=== PATIENT | male | born 1955 | race Caucasian/White ===

== ENCOUNTER → 2017-05-01 14:31 | Outpatient (CLI) | payer OTHER, SELFPAY ==
--- NOTE | 2017-05-01 | CYSPIN_PTH ---
PATIENT: JORDI PALM LOC: [facility] U#:[id number] AGE/SX: 69/M ROOM: RE05/01/[address]: Dr. Delmer Pleitez MD : 1955 BED: DIS: SPEC #: [id number] RECD: 05/01/17 10:18 STATUS: JIMMY PAIGE #: [id number] ISABELLE: 05/01/17 00:[address]: Delmer Pleitez DEPT: CYTOLOGY RECD BY: Devang Fabian ENTERED: 05/02/17 10:18 SP TYPE: CYSPIN FL OTHR DR: Dr. Darius Dillon III, MD Tissues: Urine Procedures: Pap Stain (control) Special Stain Group II Cytospin Fluid HEADER OPERATION: Not noted PRE-OP DIAGNOSIS: Hematuria R39.1 TISSUE SUBMITTED: Urine for cytology DIAGNOSIS CYTOLOGY Urine for cytology (cytospin): Negative for malignant cells. AM:vonnie 05/03/17 CYTOLOGY STUDY Slides are reviewed. CYTOLOGY GROSS Received is 40 ml of yellow clear fluid labeled with the patient's name and and designated per the requisition as urine. Submitted for cytology preparation. 05/02/17 TC:5 CPT: 81828
[2017-05-01 14:34] LABS: Cytology, Body Fluid / CSF SEE PATHOLOGY REPORT
== END ==
PROVIDERS: Family Provider Family Medicine; PCP Family Medicine; Visit Provider Urology
DX: R31.9 Hematuria, unspecified (principal)
CPT/HCPCS: 88108; 88313

== ENCOUNTER 2017-06-18 15:12 | Inpatient (IN) | payer OTHER, SELFPAY ==
--- NOTE | 2017-06-13 15:16 | EKG12_ITS ---
Test Reason : PREOP Blood Pressure : / mmHG Vent. Rate : 062 BPM Atrial Rate : 062 BPM P-R Int : 176 ms QRS Dur : 084 ms QT Int : 370 ms P-R-T Axes : 043 -10 036 degrees QTc Int : 375 ms Normal sinus rhythm Inferior infarct (cited on or before 13-JUN-2017) Abnormal ECG When compared with ECG of 30-MAR-2017 20:37, No significant change was found Confirmed by ERASMO CASTILLO, PETE ([id number]), avid editor GWENDOLYN ADAMS ([id number]) on 06/22/2017 2:53:17 PM Referred By: Blake Dillon Confirmed By:PETE ZIMMERMAN MD
[2017-06-13 15:55] LABS: Hematocrit 44.8 % (40-54); Hemoglobin 14.8 g/dl (13.0-16.5); Mean Corpuscular Hgb 29.2 pg (27.0-32.0); Mean Corpuscular Volume 88.5 fL (80-94); Mean Platelet Vol. 10.6 fl (6.2-12.0); Platelet Count 264 K/mm3 (150-450); RBC Distribution Width CV 13.8 % (11.6-14.6); RBC Distribution Width SD 44.4 fl (35.1-43.9); Red Blood Count 5.06 M/mm3 (4.6-6.2); White Blood Count 5.7 K/mm3 (4.4-11.0)
[2017-06-13 15:56] LABS: Scan Indicated on CBC? Y/N NO
[2017-06-13 16:12] LABS: Anion Gap 8 (5-15); BUN 19 mg/dL (7-18); Calcium,Total 8.6 mg/dL (8.5-10.1); Chloride 106 mmol/L (98-107); Creatinine, Serum 1.12 mg/dL (0.70-1.30); EST Glomerular Filtration Rate 71 mL/min (>60); Est Glom Filt Rate - Afr Amer 86 mL/min (>60); Glucose 67 mg/dL (74-106); Sodium Level 142 mmol/L (136-145)
[2017-06-13 16:21] LABS: Prothrombin Time (Protime)PT. 35.3 SECONDS (11.7-14.9)
[2017-06-13 16:28] LABS: International Normalized Ratio 3.5
[2017-06-16 10:13] LABS: International Normalized Ratio 2.1; Prothrombin Time (Protime)PT. 23.6 SECONDS (11.7-14.9)
[2017-06-18] VITALS (11 sets, daily range): BP systolic 96–167; BP diastolic 72–97; PULSE 65–86; RESP 16–18; TEMP 35.8–37.3; O2SAT 92–99; BMI 28.6; BMI 28.7
--- NOTE | 2017-06-18 | GALL_PTH ---
PATIENT: JORDI PALM LOC: [facility] U#:[id number] AGE/SX: 61/M ROOM: NM316 RE06/18/[address]: Dr. Blake Dillon MD : 1955 BED: 1 DIS: 06/22/2017 SPEC #: [id number] RECD: 06/18/17 15:21 STATUS: JIMMY REHeri #: [id number] ISABELLE: 06/18/17 00:[address]: Blake Dillon DEPT: SURGICAL PATHOLOGY RECD BY: Devang Fabian ENTERED: 06/19/17 11:13 SP TYPE: MOI HENRY DR: Dr. Darius Dillon III, MD Tissues: Gallbladder, NOS Procedures: Surgery Specimen Level III HEADER OPERATION: Laparoscopic cholecystectomy with IOC PRE-OP DIAGNOSIS: Chronic cholecystitis TISSUE SUBMITTED: Gallbladder and contents MICROSCOPIC DIAGNOSIS Gallbladder, cholecystectomy: Chronic cholecystitis and cholelithiasis. AM:vonnie 06/20/17 MICROSCOPIC DESCRIPTION Slides are reviewed. GROSS DESCRIPTION Received is one container labeled with the patient's name and designated gallbladder. The specimen consists of a gallbladder measuring 10.5 x 4.2 x 4 cm. The external surface is smooth and glistening. Focally, it is granular, hemorrhagic and contains cautery artifact. The lumen of the gallbladder contains green mucoid bile and multiple black calculi ranging in size from 0.2 to 1 cm in greatest dimension. The mucosa is bile-stained and without any mass lesions. The gallbladder wall measures 0.3 cm in average thickness and is free of mass lesions. Blending Technician sections of the gallbladder and the cystic duct are submitted in one cassette. / AM:vonnie 06/19/17 TC:3 CPT: 05855
[2017-06-18 08:11] LABS: Prothrombin Time Fingerstick 13.1 SEC (11.9-14.4)
[2017-06-18] MEDS: Heparin Injection 5,000 UNITS/ML Syringe 10000 UNITS IV (08:15)
[2017-06-18] MEDS: HEPARIN/D5w 25,000 UNITS 25,000 UNITS/250 ML IV.SOLN. 9 UNITS IV (09:23)
[2017-06-18] MEDS: 0.9% Normal Saline 1,000 ML 75 ML IV ×2 (11:59→17:49)
[2017-06-18] MEDS: Bupivacaine Mpf 0.5% 30 ML VIAL (13:33)
--- NOTE | 2017-06-18 13:40 | PCM.DC.GS ---
Discharge Diet: Light diet - advance as tolerated - if you have questions about your diet instructions, please talk to you doctor. Discharge Activity: May Not Drive - for 1 week or while taking narcotic pain medicine. May shower in (days): 1 Lifting Restrictions: 10 pounds Call your doctor if your incision/area has: Continuous Slow Oozing, Sudden Increased Bleeding, Increased Pain/ Swelling, Increased Redness, Foul Smelling Discharge Call your doctor if you observe: Fever of 101 or Higher Suture Line Care: Avoid Pulling/Pushing, Avoid Pinching/Bending Additional Dressing/Incision Instructions:: Change or remove dressing in 4 days. Leave steri-strips in place for 1 week. Allergies/Adverse Reactions: Allergies No Known Allergies Allergy (Verified 06/11/17 09:21) Medications to take at Discharge Gemfibrozil 600 mg PO BID 04/21/13 enoxaparin 100 mg/mL subcutaneous syringe 50 mg SC BID #23 dose 05/25/17 Warfarin [Coumadin] 12 mg PO DAILY 06/11/17 Primary Care Physician: Darius Dillon III, MD [Primary Care Provider] - Please Follow Up With: Blake Dillon MD - [phone] When: Call to make an appointment to be seen in about 10 days.
[2017-06-18] MEDS: Cefazolin 2 GM in 0.9% Normal Saline 100 ML IV (13:57)
--- NOTE | 2017-06-18 14:15 | RAD_ITS ---
PROCEDURE: INTRAOPERATIVE CHOLANGIOGRAM. REASON FOR EXAM: Male, 89 years old. Cholelithiasis. FLUOROSCOPY TIME (if supplied): (0:13) minutes/seconds TECHNIQUE: Real-time fluoroscopy was provided during intraoperative contrast infusion via the cystic duct. COMPARISON: None. FINDINGS: Normal caliber intra-and extrahepatic bile ducts. No filling defects or strictures seen. Contrast flows to the duodenum. RAD/Cholangiogram/ O R,Initial IMPRESSION: Normal intraoperative cholangiogram. Electronically Signed: Nestor Moctezuma MD at 15:05 EDT , Service support ,
--- NOTE | 2017-06-18 15:33 | PCM.OPRPT ---
Problem List (1) Chronic cholecystitis with calculus Status: Chronic Report of Operation Date of Procedure: 06/18/17 Pre-Operative Diagnosis: Chronic cholecystitis cholelithiasis Post-Operative Diagnosis: Cholecystitis cholelithiasis. Intra-abdominal adhesions of the omentum to the anterior abdominal wall Surgery/Procedure Performed:: laparoscopic lysis of adhesion. Laparoscopic cholecystectomy with cholangiograms Description of Surgical Findings:: Timeout and informed consent was obtained. 61-year-old gentleman was taken the operating room. He was on IV heparin preoperatively to protect the cardiac valve. The heparin was stopped. He had Ancef 2 g and gentamicin 100 mg given intravenously preoperatively. The abdomen sterilely prepped draped. 0.5% Marcaine was used as local anesthetic. A total of 30 cc was used. Skin sites were pre-anesthetized a vertical infraumbilical incision was created holding sutures of 0 Vicryl placed varies inserted saline drop test on the abdomen was insufflated CO2 to a pressure of tenderness or pressure Frieda trocar inserted, lap scope inserted no evidence of any trocar injuries under conization five-minute ports were placed in the epigastric mid abdomen right upper quadrant inspection revealed that there was a broad adhesion from the omentum in the right lower quadrant to the anterior abdominal wall. It was suspected that this might of been etiologic to the patient's recent hospitalization with abdominal distention and questionable ileus versus partial small bowel obstruction. I used electrified scissors to transect this flush with the abdominal wall. Hemostasis was nicely intact. I then addressed the gallbladder it was distracted blunt dissection was instituted at the infundibulum the cystic duct identified the cystic artery identified there was both an anterior to posterior branching. A Hem-o-montana clip was placed on the cystic duct incision made in the cystic duct there was no bile spillage claims grams catheter was inserted and fluoroscopically controlled claims grams are obtained demonstrating a rather elongated cystic duct there was good flow into the small bowel there was some backflow into the pancreas no evidence of any intraluminal filling defects. The client Michael catheter was removed 2 Hem-o-montana clips were placed on the cystic duct stump prior to transecting it no spillage the cystic artery was clipped twice proximally once distally prior to transecting it this was done for both the anterior posterior branches. The gallbladder was then tediously dissected free from the liver bed absolutely complete hemostasis was intact and there was 0 spillage. The gallbladder bed was then carefully cauterized for complete hemostasis and I additionally placed FloSeal to the liver bed because my planned anticoagulation of the patient. The gallbladder was placed in retrieval bag and exited the umbilicus. The remaining trochars were removed under visualization. The abdomen was allowed to deflate of the CO2. The fascia at the umbilicus approximated with interrupted 0 Vicryl figure 8 suture. Skin edges proximate interrupted 4 Monocryl subdermal stitches. Steri-Strips Telfa and OpSite dressings applied. Sponge instrument and needle counts were reported to the surgeon be correct. Blood loss was minimal. There were no apparent complications. There is good hemostasis at the completion. Specimens include gallbladder. Drains none. Blood loss minimal. Blake Dillon M.D., F.A.C.S.
--- NOTE | 2017-06-18 15:38 | OP.PCM_ITS ---
Problem List (1) Chronic cholecystitis with calculus Status: Chronic Report of Operation Date of Procedure: 06/18/17 Pre-Operative Diagnosis: Chronic cholecystitis cholelithiasis Post-Operative Diagnosis: Cholecystitis cholelithiasis. Intra-abdominal adhesions of the omentum to the anterior abdominal wall Surgery/Procedure Performed:: laparoscopic lysis of adhesion. Laparoscopic cholecystectomy with cholangiograms Description of Surgical Findings:: Timeout and informed consent was obtained. 61-year-old gentleman was taken the operating room. He was on IV heparin preoperatively to protect the cardiac valve. The heparin was stopped. He had Ancef 2 g and gentamicin 100 mg given intravenously preoperatively. The abdomen sterilely prepped draped. 0.5% Marcaine was used as local anesthetic. A total of 30 cc was used. Skin sites were pre-anesthetized a vertical infraumbilical incision was created holding sutures of 0 Vicryl placed varies inserted saline drop test on the abdomen was insufflated CO2 to a pressure of tenderness or pressure Frieda trocar inserted, lap scope inserted no evidence of any trocar injuries under conization five- minute ports were placed in the epigastric mid abdomen right upper quadrant inspection revealed that there was a broad adhesion from the omentum in the right lower quadrant to the anterior abdominal wall. It was suspected that this might of been etiologic to the patient's recent hospitalization with abdominal distention and questionable ileus versus partial small bowel obstruction. I used electrified scissors to transect this flush with the abdominal wall. Hemostasis was nicely intact. I then addressed the gallbladder it was distracted blunt dissection was instituted at the infundibulum the cystic duct identified the cystic artery identified there was both an anterior to posterior branching. A Hem-o-montana clip was placed on the cystic duct incision made in the cystic duct there was no bile spillage claims grams catheter was inserted and fluoroscopically controlled claims grams are obtained demonstrating a rather elongated cystic duct there was good flow into the small bowel there was some backflow into the pancreas no evidence of any intraluminal filling defects. The client Michael catheter was removed 2 Hem-o- montana clips were placed on the cystic duct stump prior to transecting it no spillage the cystic artery was clipped twice proximally once distally prior to transecting it this was done for both the anterior posterior branches. The gallbladder was then tediously dissected free from the liver bed absolutely complete hemostasis was intact and there was 0 spillage. The gallbladder bed was then carefully cauterized for complete hemostasis and I additionally placed FloSeal to the liver bed because my planned anticoagulation of the patient. The gallbladder was placed in retrieval bag and exited the umbilicus. The remaining trochars were removed under visualization. The abdomen was allowed to deflate of the CO2. The fascia at the umbilicus approximated with interrupted 0 Vicryl figure 8 suture. Skin edges proximate interrupted 4 Monocryl subdermal stitches. Steri- Strips Telfa and OpSite dressings applied. Sponge instrument and needle counts were reported to the surgeon be correct. Blood loss was minimal. There were no apparent complications. There is good hemostasis at the completion. Specimens include gallbladder. Drains none. Blood loss minimal. Blake Dillon M.D., F.A.C.S.
[2017-06-18 19:52] LABS: Partial Thromboplast Time 30.1 Seconds (24.1-36.2)
[2017-06-18] MEDS: HYDROcodone Bitartrate/Apap 5/325 Tablet PO (21:26)
[2017-06-19] VITALS (10 sets, daily range): BP systolic 123–136; BP diastolic 72–85; PULSE 67–100; RESP 18; TEMP 36.7–37; O2SAT 96–98
[2017-06-19] MEDS: HYDROcodone Bitartrate/Apap 5/325 Tablet PO ×3 (03:26→21:31)
--- NOTE | 2017-06-19 05:46 | PCM.PN.SRG ---
Subjective: Doing well - Physical Exam Abdomen: Soft, Hypoactive Bowel Sounds, Distended Vital Signs Temp Pulse Resp BP Pulse Ox 98.6 F 78 18 129/76 H 97 06/19/17 03:10 06/19/17 03:10 06/19/17 03:10 06/19/17 03:10 06/19/17 03:10 Oxygen Flow Rate (L/min) 2 Oxygen Delivery Method Room Air Weight: 223 lb 12.307 oz Body Mass Index (BMI) 28.7 Intake and Output for Last 24 Hours 06/17/17 06/18/17 06/19/17 23:59 23:59 23:59 Intake Total 1400 / 1400 800 / 800 Output Total 200 / 200 625 / 625 Balance 1200 / 1200 175 / 175 Laboratory Tests Past 24 Hrs 06/18/17 06/18/17 08:05 19:28 POC PT 13.1 INR 1.10 APTT 30.1 Medical Necessity - Tobacco Use Smoking Status: Never smoker Assessment/Plan Awaiting PTT, will increase heparin; no current signs of bleeding Continue coumadin; check INR tomorrow Advance to reg diet
[2017-06-19 06:43] LABS: Hematocrit 43.7 % (40-54); Hemoglobin 14.4 g/dl (13.0-16.5); Mean Corpuscular Hgb 29.4 pg (27.0-32.0); Mean Corpuscular Volume 89.4 fL (80-94); Mean Platelet Vol. 10.4 fl (6.2-12.0); Platelet Count 192 K/mm3 (150-450); RBC Distribution Width CV 13.8 % (11.6-14.6); RBC Distribution Width SD 44.6 fl (35.1-43.9); Red Blood Count 4.89 M/mm3 (4.6-6.2); White Blood Count 8.2 K/mm3 (4.4-11.0)
[2017-06-19 06:49] LABS: Scan Indicated on CBC? Y/N NO
[2017-06-19] MEDS: Gemfibrozil 600 MG Tablet PO ×2 (06:49→16:42)
[2017-06-19 06:55] LABS: International Normalized Ratio 1.1; Prothrombin Time (Protime)PT. 14.3 SECONDS (11.7-14.9)
[2017-06-19 06:56] LABS: Partial Thromboplast Time 32.6 Seconds (24.1-36.2)
--- NOTE | 2017-06-19 09:11 | PCA ---
pt out walking in the pierre
--- NOTE | 2017-06-19 09:11 | PCA ---
pt out walking in the pierre
--- NOTE | 2017-06-19 12:15 | CASEMGMT ---
RN KRISTYN Face to Face with patient for initial transition planning/care coordination assessment. RN CM introduced self and role at [facility]. Patient sitting on edge of bed, alert and oriented, at bedside. Patient willing to participate in assessment and is able to answer all questions appropriately. Care providers, pharmacy, and demographics verified. See link attached. Patient wishes to discharge home, denies need for home health and DME at this time. Patient states he has no further needs or concerns at this time. CM to follow for discharge planning needs that may arise. Disposition Plan: Patient to discharge home with family support and follow-up plans in place.
[2017-06-19 12:40] LABS: Partial Thromboplast Time 40.8 Seconds (24.1-36.2)
[2017-06-19] MEDS: HEPARIN/D5w 25,000 UNITS 25,000 UNITS/250 ML IV.SOLN. 16 UNITS IV (15:20)
--- NOTE | 2017-06-19 15:26 | PCA ---
pt out walking in the pierre
--- NOTE | 2017-06-19 16:41 | PCA ---
pt walking in the pierre
--- NOTE | 2017-06-19 17:05 | PCA ---
pt out walking in the pierre
[2017-06-19 18:56] LABS: Partial Thromboplast Time 62.7 Seconds (24.1-36.2)
--- NOTE | 2017-06-19 19:05 | NURSING ---
DR GUNDERSON NOTIFIED OF APTT RESULT 62.7 NO NEW ORDER
[2017-06-19] MEDS: LORazepam 0.5 MG Tablet PO (21:28)
[2017-06-20] VITALS (11 sets, daily range): BP systolic 123–150; BP diastolic 76–87; PULSE 59–87; RESP 18; TEMP 36.1–37.1; O2SAT 96–99
[2017-06-20 06:02] LABS: International Normalized Ratio 1.3
[2017-06-20 06:03] LABS: Partial Thromboplast Time 73.4 Seconds (24.1-36.2)
[2017-06-20] MEDS: Gemfibrozil 600 MG Tablet PO ×2 (06:48→16:42)
--- NOTE | 2017-06-20 07:20 | PCM.PN.SRG ---
Subjective: Patient evaluated resting comfortably in bed. He denies nausea, vomiting. He notes minimal incisional discomfort. He is ambulating well. He denies nose bleeds or bleeding per rectum. - Physical Exam General: Alert, Oriented x3, Cooperative Abdomen: Bowel Sounds Present, Soft, Non Tender, - - Incisions c/d/i. Vital Signs Temp Pulse Resp BP Pulse Ox 98.0 F 59 L 18 150/82 H 98 06/20/17 04:34 06/20/17 04:34 06/20/17 04:34 06/20/17 04:34 06/20/17 04:34 Oxygen Flow Rate (L/min) 2 Oxygen Delivery Method Room Air Weight: 223 lb 12.307 oz Body Mass Index (BMI) 28.7 Intake and Output for Last 24 Hours 06/18/17 06/19/17 06/20/17 23:59 23:59 23:59 Intake Total 1400 / 1400 2775.8 / 2775.8 Output Total 200 / 200 3500 / 3500 Balance 1200 / 1200 -724.2 / -724.2 Laboratory Tests Past 24 Hrs 06/19/17 06/19/17 06/20/17 12:15 18:00 05:38 PT 16.0 H INR 1.3 APTT 40.8 H 62.7 H 73.4 H Medical Necessity - Tobacco Use Smoking Status: Never smoker Assessment/Plan I am following this patient in conjunction with Dr. Dillon S/p laparoscopic cholecystectomy Reviewed labs Discussed with Dr. Dillon Increase Coumadin to 15 mg Repeat PTT at [address] Dillon with results. Probable discharge tomorrow We will continue to monitor this patient
[2017-06-20] MEDS: HYDROcodone Bitartrate/Apap 5/325 Tablet PO ×2 (09:32→15:26)
[2017-06-20] MEDS: HEPARIN/D5w 25,000 UNITS 25,000 UNITS/250 ML IV.SOLN. 16 UNITS IV (09:44)
[2017-06-20 18:41] LABS: Partial Thromboplast Time 79.5 Seconds (24.1-36.2)
--- NOTE | 2017-06-20 19:57 | NURSING ---
Reported the Nasim TINOCO..Dr. Dillon Called-- saw the Ptt results will leave the Heparin the same.
[2017-06-20] MEDS: LORazepam 0.5 MG Tablet PO (20:54)
[2017-06-21] VITALS (10 sets, daily range): BP systolic 114–146; BP diastolic 69–74; PULSE 62–85; RESP 14–16; TEMP 36.4–36.9; O2SAT 97–98
[2017-06-21] MEDS: 0.9% NaCl Peripheral Flush Adult/Peds IV (03:37)
[2017-06-21] MEDS: HEPARIN/D5w 25,000 UNITS 25,000 UNITS/250 ML IV.SOLN. 16 UNITS IV (03:37)
--- NOTE | 2017-06-21 05:39 | PCM.PN.SRG ---
Subjective: Pt continues to do well, no complaints - Physical Exam General: Alert, Oriented x3, Cooperative, No apparent distress Lungs: Clear to auscultation Cardiovascular: Regular rate Abdomen: Soft, Non Tender Vital Signs Temp Pulse Resp BP Pulse Ox 98.5 F 64 16 146/69 H 98 06/21/17 03:32 06/21/17 03:32 06/21/17 03:32 06/21/17 03:32 06/21/17 03:32 Oxygen Flow Rate (L/min) 2 Oxygen Delivery Method Room Air Weight: 223 lb 12.307 oz Body Mass Index (BMI) 28.7 Intake and Output for Last 24 Hours 06/19/17 06/20/17 06/21/17 23:59 23:59 23:59 Intake Total 2775.8 / 2775.8 576 / 576 Output Total 3500 / 3500 600 / 600 Balance -724.2 / -724.2 -24 / -24 Laboratory Tests Past 24 Hrs 06/20/17 06/20/17 05:38 18:16 PT 16.0 H INR 1.3 APTT 73.4 H 79.5 H Medical Necessity - Tobacco Use Smoking Status: Never smoker Assessment/Plan Will check INR and PTT Hopeful discharge soon
[2017-06-21 06:11] LABS: International Normalized Ratio 1.5; Prothrombin Time (Protime)PT. 18.1 SECONDS (11.7-14.9)
[2017-06-21 06:31] LABS: Partial Thromboplast Time 91.2 Seconds (24.1-36.2)
--- NOTE | 2017-06-21 06:40 | PCM.PN.BLA ---
Progress Note Labs reviewed and discussed with Dr. Dillon. Decrease Heparin to 14 mls/hr and increase Coumadin to 17.5 mg daily. Repeat PTT at 1800 today. INR goal level is 2. 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 Pharmacy has been contacted and will make the appropriate adjustments to the Heparin and Coumadin. Probable discharge tomorrow pending lab work. Floor nurse notified of adjustments and patient aware of no discharge today.
--- NOTE | 2017-06-21 06:44 | PN_ITS ---
Progress Note Labs reviewed and discussed with Dr. Dillon. Decrease Heparin to 14 mls/hr and increase Coumadin to 17.5 mg daily. Repeat PTT at 1800 today. INR goal level is 2. 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 Pharmacy has been contacted and will make the appropriate adjustments to the Heparin and Coumadin. Probable discharge tomorrow pending lab work. Floor nurse notified of adjustments and patient aware of no discharge today.
[2017-06-21] MEDS: Gemfibrozil 600 MG Tablet PO ×2 (09:30→16:19)
[2017-06-21 18:45] LABS: Partial Thromboplast Time 60.4 Seconds (24.1-36.2)
[2017-06-21] MEDS: HEPARIN/D5w 25,000 UNITS 25,000 UNITS/250 ML IV.SOLN. 15 UNITS IV (21:32)
[2017-06-21] MEDS: LORazepam 0.5 MG Tablet PO (21:32)
[2017-06-21] MEDS: HYDROcodone Bitartrate/Apap 5/325 Tablet PO (23:14)
[2017-06-22 01:59] VITALS: PULSE 61
[2017-06-22 03:33] VITALS: BP 121/71; PULSE 64; RESP 16; TEMP 36.5; O2SAT 98
--- NOTE | 2017-06-22 05:25 | PCM.PN.SRG ---
Subjective: Pt continues to do well - Physical Exam Abdomen: Soft, - - ecchymosis at umbical site, clean Vital Signs Temp Pulse Resp BP Pulse Ox 97.7 F L 64 16 121/71 H 98 06/22/17 03:33 06/22/17 03:33 06/22/17 03:33 06/22/17 03:33 06/22/17 03:33 Oxygen Flow Rate (L/min) 2 Oxygen Delivery Method Room Air Weight: 223 lb 12.307 oz Body Mass Index (BMI) 28.7 Intake and Output for Last 24 Hours 06/20/17 06/21/17 06/22/17 23:59 23:59 23:59 Intake Total 576 / 576 1050 / 1050 510.7 / 510.7 Output Total 600 / 600 Balance -24 / -24 1050 / 1050 510.7 / 510.7 Laboratory Tests Past 24 Hrs 06/21/17 06/21/17 05:50 18:13 PT 18.1 H INR 1.5 APTT 91.2 H* 60.4 H Medical Necessity - Tobacco Use Smoking Status: Never smoker Assessment/Plan Awaiting labs and plan discharge today
[2017-06-22 06:43] LABS: International Normalized Ratio 1.8; Prothrombin Time (Protime)PT. 20.6 SECONDS (11.7-14.9)
[2017-06-22 06:52] LABS: Partial Thromboplast Time 94.4 Seconds (24.1-36.2)
--- NOTE | 2017-06-22 07:12 | NURSING ---
PT/INR ordered for Sunday, June 25, 2017, per Dr. Blake Dillon's order. Reminder sheet given to pt.
[2017-06-22] MEDS: Gemfibrozil 600 MG Tablet PO ×2 (07:16→17:07)
[2017-06-22 08:00] VITALS: PULSE 67
--- NOTE | 2017-06-22 09:00 | PCA ---
pt out walking in the pierre
[2017-06-22 10:00] VITALS: BP 119/64; PULSE 73; RESP 16; TEMP 36.8; O2SAT 97
[2017-06-22 14:15] VITALS: PULSE 65
[2017-06-22 15:09] VITALS: BP 120/78; PULSE 75; RESP 16; TEMP 36.9; O2SAT 97
--- NOTE | 2017-06-22 15:32 | PCA ---
PT OUT WALKING IN THE NAIDU
--- NOTE | 2017-06-22 15:32 | PCA ---
PT OUT WALKING IN THE NAIDU
--- NOTE | 2017-06-26 06:59 | PCM.DC.SUM ---
Discharge Date and Diagnosis Date of Admission: 06/18/17 Date of Discharge: 06/22/17 - Primary Discharge Diagnosis Chronic Cholecystitis and Cholelithiasis - Secondary Discharge Diagnosis Chronic Problems (Last Reviewed 06/11/17 @ 08:01 by Fernanda Chaudhry) Chronic cholecystitis with calculus (Chronic) Hyperlipidemia (Chronic) Partial deafness (Chronic) H/O aortic valve replacement (Chronic) StJude (metal) aortic Hospital Course and Treatment Operations: cholecystecomy Summary of Care Provided: The patient is a 61 year old M who presented for a elective cholecystectomy. Dr. Dillon performed a laparoscopic cholecystectomy with intraoperative cholangiogram on 06/18/2017. Patient tolerated the procedure well. Patient had to be bridged with IV Heparin and Coumadin to assist increasing his INR level to 3.0. Patient has an approximately 20 year old aortic valve. Upon discharge, patient's PTT increased to 94.4. Patient denies incisional pain/discomfort, nausea, vomiting. He notes ecchymosis at the umbilical site. He denies gum bleeding, rectal bleeding, or other sites of bleeding. Patient was given instructions to continue subcutaneous Lovenox injections and Coumadin as an outpatient. He was instructed to obtain a PT/INR check on Sunday. Discharge Diet: Light diet - advance as tolerated - if you have questions about your diet instructions, please talk to you doctor. Discharge Activity: May Not Drive - for 1 week or while taking narcotic pain medicine. May shower in (days): 1 Call your doctor if your incision/area has: Continuous Slow Oozing, Sudden Increased Bleeding, Increased Pain/ Swelling, Increased Redness, Foul Smelling Discharge Call your doctor if you observe: Fever of 101 or Higher Suture Line Care: Avoid Pulling/Pushing, Avoid Pinching/Bending Additional Dressing/Incision Instructions:: Change or remove dressing in 4 days. Leave steri-strips in place for 1 week. Home Medications: Medications to take at Discharge Gemfibrozil 600 mg PO BID 04/21/13 enoxaparin 100 mg/mL subcutaneous syringe 50 mg SC BID #23 dose 05/25/17 Warfarin [Coumadin] 12 mg PO DAILY 06/11/17 Primary Care Physician: Darius Dillon III, MD [Primary Care Provider] - Please Follow Up With: Blake Dillon MD - [phone] When: Call to make an appointment to be seen in about 10 days. Disposition: Home Minutes spent on discharge:: 25 Patient Condition:: Stable Medical Necessity - Tobacco Use Smoking Status: Never smoker Meaningful Use Info Meaningful Use Diagnoses (Choose all that apply): None applicable
== END 2017-06-22 17:30 | disposition home or self-care (01) | DRG 419 ==
LOC: SDC 06-19 13:22
PROVIDERS: Physician Assistant; Admitting Provider Surgery; Family Provider Family Medicine; PCP Family Medicine; Visit Provider Surgery
PROC: 0FT44ZZ Resection of Gallbladder, Percutaneous Endoscopic Approach (ICD-10-PCS; CPT 47610; principal; 2017-06-18 13:45)
DX: K80.10 Calculus of gallbladder with chronic cholecystitis without obstruction (principal); E78.5 Hyperlipidemia, unspecified; K66.0 Peritoneal adhesions (postprocedural) (postinfection); H91.90 Unspecified hearing loss, unspecified ear; Z95.2 Presence of prosthetic heart valve; Z79.01 Long term (current) use of anticoagulants
CPT/HCPCS: 36415; 36416; 74300; 76000; 80048; 85027; 85610; 85730; 88304; 93005; J7030; J7120; A4216; J2405; J3490

== ENCOUNTER → 2017-06-25 07:56 | Outpatient (CLI) | payer OTHER, SELFPAY ==
[2017-06-25 08:23] LABS: Prothrombin Time (Protime)PT. 31.7 SECONDS (11.7-14.9)
== END ==
PROVIDERS: Family Provider Family Medicine; PCP Family Medicine; Visit Provider Surgery
DX: R79.1 Abnormal coagulation profile (principal)
CPT/HCPCS: 36415; 85610

== ENCOUNTER → 2017-07-03 13:50 | Outpatient (CLI) | payer OTHER, SELFPAY ==
[2017-07-03 16:05] LABS: International Normalized Ratio 3.1
== END ==
PROVIDERS: Family Provider Family Medicine; PCP Family Medicine; Visit Provider Surgery
DX: R79.1 Abnormal coagulation profile (principal)
CPT/HCPCS: 36415; 85610

== ENCOUNTER 2017-07-15 15:29 | Emergency (ER) | payer OTHER, SELFPAY ==
[2017-07-15 15:30] VITALS: BP 143/87; PULSE 85; RESP 16; TEMP 36.7; O2SAT 97; BMI 28.8
[2017-07-15 16:14] VITALS: RESP 16
[2017-07-15 16:37] LABS: International Normalized Ratio 1.4
--- NOTE | 2017-07-15 17:00 | ED.VISSUMM ---
- ER Visit Summary Date of Service: 07/15/17 Chief Complaint: Wound check History of Present Illness: The patient is a 61 M who had a laparoscopic cholecystectomy on June [address] Dillon. He states that about 1 week ago he began to have some bleeding from the wound. He is noticed a small amount of bleeding at his umbilicus. He is otherwise asymptomatic. He denies pain nausea vomiting fevers. He states he did have a follow-up appointment about a week ago shortly before the bleeding began. Physical Examination: Afebrile vitals are stable Heart regular rate and rhythm Lungs are clear The abdomen is soft there is a surgical wound inferior umbilicus with a very small open area a couple of millimeters there is dried blood but no active drainage he does have a firm area beneath this measuring 3 x 4 cm which is not tender fluctuant erythematous or hot to the touch Test Results: INR 1.4 Emergency Department Course and Treatment: Patient states that he is noticed the mass or area of induration near this wound since surgery. At this time he does not have evidence to suggest abscess. It is not fluctuant erythematous warm to touch and there is no purulent drainage. There is some dried blood. He is on warfarin. I suspect that this was a small hematoma but is now beginning to drain. I did speak to Dr. Valverde who was on-call for the patient's surgeon to notify them of his visit here. We will have him call the office for outpatient follow-up. He understands to return for new or worsening symptoms and was discharged home. Treatment Plan: [] Disposition: Discharge Impression: Postoperative wound check Hematoma This note was generated with [employer] dictation software. It may contain incorrect words, spelling, and punctuation that were not noted in review of the chart prior to signing ED Disposition - Plan for ED Patient: Chief Complaint: Wound Check Referrals: Darius Dillon III, MD [Primary Care Provider] -
--- NOTE | 2017-07-15 17:03 | ED.DCSUM_ITS ---
- ER Visit Summary Date of Service: 07/15/17 Chief Complaint: Wound check History of Present Illness: The patient is a 61 M who had a laparoscopic cholecystectomy on June [address] Dillon. He states that about 1 week ago he began to have some bleeding from the wound. He is noticed a small amount of bleeding at his umbilicus. He is otherwise asymptomatic. He denies pain nausea vomiting fevers. He states he did have a follow-up appointment about a week ago shortly before the bleeding began. Physical Examination: Afebrile vitals are stable Heart regular rate and rhythm Lungs are clear The abdomen is soft there is a surgical wound inferior umbilicus with a very small open area a couple of millimeters there is dried blood but no active drainage he does have a firm area beneath this measuring 3 x 4 cm which is not tender fluctuant erythematous or hot to the touch Test Results: INR 1.4 Emergency Department Course and Treatment: Patient states that he is noticed the mass or area of induration near this wound since surgery. At this time he does not have evidence to suggest abscess. It is not fluctuant erythematous warm to touch and there is no purulent drainage. There is some dried blood. He is on warfarin. I suspect that this was a small hematoma but is now beginning to drain. I did speak to Dr. Valverde who was on-call for the patient 's surgeon to notify them of his visit here. We will have him call the office for outpatient follow-up. He understands to return for new or worsening symptoms and was discharged home. Treatment Plan: [] Disposition: Discharge Impression: Postoperative wound check Hematoma This note was generated with [employer] dictation software. It may contain incorrect words, spelling, and punctuation that were not noted in review of the chart prior to signing ED Disposition - Plan for ED Patient: Chief Complaint: Wound Check Referrals: Darius Dillon III, MD [Primary Care Provider] -
--- NOTE | 2017-07-15 17:03 | ED.DEP ---
ED Disposition - Plan for ED Patient: Chief Complaint: Wound Check Instructions: ED Wound Check Post Op Bleeding Referrals: Darius Dillon III, MD [Primary Care Provider] - Blake Dillon MD [STAFF PHYSICIAN] -
[2017-07-15 17:12] VITALS: RESP 16
--- NOTE | 2017-07-15 17:12 | ED.RN ---
REVIEWED D/C INSTRUCTIONS, FOLLOW UP CARE, AND S/S THAT WOULD WARRANT A RETURN TO THE ED WITH PT. PT VERBALIZED AN UNDERSTANDING AND DENIES FURTHER QUESTIONS FOR THIS RN. PT SKIN P/W/D, RESP EVEN AND UNLABORED, PT A&O X 3, NO DISTRESS NOTED. PT AMBULATED OUT OF ED, GAIT STEADY.
== END 2017-07-15 17:21 | disposition home or self-care (01) ==
PROVIDERS: Emergency Provider Emergency Medicine; Family Provider Family Medicine; PCP Family Medicine
DX: L76.32 Postprocedural hematoma of skin and subcutaneous tissue following other procedure (principal); Z79.01 Long term (current) use of anticoagulants; Z90.49 Acquired absence of other specified parts of digestive tract
CPT/HCPCS: 85610; 99282

== ENCOUNTER 2018-01-05 01:14 | Emergency (ER) | payer OTHER, SELFPAY ==
[2018-01-05 01:17] VITALS: BP 139/90; PULSE 92; RESP 18; TEMP 36.9; O2SAT 99; BMI 28.0
--- NOTE | 2018-01-05 01:44 | CT_ITS ---
STUDY: CT ABDOMEN AND PELVIS WITHOUT CONTRAST REASON FOR EXAM: Male, 62 years old. Left lower quadrant pain RADIATION DOSAGE (If Supplied By Facility): CTDIvol = ( 10.64 ) mGy, DLP = ( 646.16 ) mGycm TECHNIQUE: Transaxial images were obtained from the dome of the diaphragm to the symphysis pubis without oral contrast, and without intravenous contrast. Sagittal and coronal images were reconstructed. Individualized dose optimization techniques were used for this CT. COMPARISON: None. FINDINGS: The lung bases are clear. Aortic prosthetic valve is in place. Calcified circumflex. The liver is normal. No dilated intrahepatic biliary radicles. Previous cholecystectomy The spleen is normal. The pancreas is normal. Both adrenals are normal. The kidneys are normal with no masses, calculi or hydronephrosis The stomach is normal. There is no bowel distention,. No acute appendicitis. There is proximal acute sigmoid diverticulitis. The abdominal wall is intact with no hernias. There is no ascites or any free intraperitoneal air. No indication of epiploic appendagitis The vascular structures in the retroperitoneum are normal. There is no retrocrural, retroperitoneal or mesenteric adenopathy. The bones and joints are normal. The urinary bladder is normal.--The prostate is slightly enlarged.. There is no inguinal or pelvic adenopathy. There is no inguinal hernia. The visualized lung bases are unremarkable. The visualized portions of the heart are within normal limits. Normal liver. Normal gallbladder and extrahepatic biliary system. Normal spleen. Normal pancreas. Normal bilateral adrenal glands. Normal right kidney. Normal left kidney. Normal visualized stomach. Normal small intestine. Normal colon. The appendix is visualized and appears normal. Normal abdominal aorta. Normal inferior vena cava. Normal retroperitoneum. Normal urinary bladder. Normal abdominal wall. Normal osseous structures. CT/Abdomen/Pelvis without Cont IMPRESSION: Acute proximal sigmoid diverticulitis. Electronically Signed: Joshua Zhou MD at 2:51 EDT Tel , Service support ,
[2018-01-05 01:52] LABS: Absolute Lymphocyte Count 1.28 X10^3/ul (0.83-4.51); Absolute Neutrophil Count 7.5 X10^3/uL (2.0-7.7); Basophil# 0.04 X10^3/uL; Basophil% 0.4 % (0-1); Eosinophil# 0.15 X10^3/uL; Eosinophils% 1.5 % (0-5); Hematocrit 43.9 % (40-54); Hemoglobin 14.7 g/dl (13.0-16.5); Lymphocyte # 1.28 X10^3/ul (4.0); Lymphocyte % 13.1 % (19-41); Mean Corp Hgb Conc 33.5 g/gl (32-36); Mean Corpuscular Hgb 29.4 pg (27.0-32.0); Mean Corpuscular Volume 87.8 fL (80-94); Mean Platelet Vol. 10.6 fl (6.2-12.0); Monocyte# 0.83 X10^3/uL; Monocyte% 8.5 % (0-10); Neutrophil # 7.45 X10^3/uL (2.7-7.7); Neutrophil % 76.4 % (47-70); POSITIVE COUNT NO; POSITIVE DIFFERENTIAL NO; POSITIVE MORPHOLOGY NO; Platelet Count 227 K/mm3 (150-450); RBC Distribution Width CV 13.6 % (11.6-14.6); RBC Distribution Width SD 43.4 fl (35.1-43.9); White Blood Count 9.8 K/mm3 (4.4-11.0)
[2018-01-05 01:54] LABS: Mucous, Urine 0 SEEN /hpf (<or=2+); Red Blood Cells-Urine 0 SEEN /hpf (0-5); Squamous Epithelial Cells - UA 0 SEEN /hpf (0-5); White Blood Cells 0 SEEN /hpf (0-5)
[2018-01-05 01:55] LABS: Color, Urine Yellow (Yellow); Glucose, Dipstick Normal (Normal); Ketone-Dipstick Negative (Negative); Leukocyte Esterase-Dipstick Negative /ul (Negative); Nitrite-Dipstick Negative (Negative); Occult Blood-Urine Negative /ul (Negative); Protein-Dipstick Negative (Negative); Specific Gravity, Urine 1.015 (1.002-1.030); Urine Bilirubin Dipstick Negative (Negative); Urine Clarity Clear (Clear); Urine Urobilinogen Normal (Normal)
[2018-01-05 02:01] LABS: Bacteria RARE /hpf (None Seen)
[2018-01-05 02:02] LABS: Renal Epithelial Cells 0 SEEN /hpf (0-5)
[2018-01-05] MEDS: 0.9% Normal Saline 1,000 ML 125 ML IV (02:02)
[2018-01-05 02:06] LABS: Albumin, Serum 3.7 g/dL (3.2-5.0); BUN 18 mg/dL (7-18); BUN/Creat Ratio 15.1 RATIO (10-20); Creatinine, Serum 1.19 mg/dL (0.70-1.30); EST Glomerular Filtration Rate 66 mL/min (>60); Est Glom Filt Rate - Afr Amer 80 mL/min (>60); Estimated Creatinine Clearance 74.83 ml/min; Glucose 95 mg/dL (74-106); Protein, Total 7.2 g/dL (6.4-8.2)
[2018-01-05 02:07] LABS: ALB/GLOB Ratio 1.1 RATIO (0.9-2.4); AST(SGOT) 15 U/L (15-37); Alanine Aminotransfer ALT/SGPT 20 U/L (16-61); Alkaline Phosphatase 89 U/L (45-117); Anion Gap 8 (5-15); Calcium,Total 8.4 mg/dL (8.5-10.1); Chloride 106 mmol/L (98-107); Globulin 3.5 g/dL (2.2-4.2); Lipase 159 U/L (73-393); Potassium 3.9 mmol/L (3.5-5.1); Sodium Level 139 mmol/L (136-145)
--- NOTE | 2018-01-05 03:11 | ED.VISSUMM ---
- ER Visit Summary Date of Service: 01/05/18 Chief Complaint: Abdominal pain History of Present Illness: The patient is a 62 M with left lower quadrant abdominal pain that started several hours ago. Worse with moving and breathing. Nothing seems to make it better. No associated symptoms. He never had this in the past. Physical Examination: Vitals unremarkable. Afebrile. Alert and oriented. No acute distress. Heart regular rate and rhythm. Lungs clear. Abdomen tender in the left lower quadrant. No guarding or rebound. Exam otherwise unremarkable Test Results: Laboratory studies unremarkable. INR pending. CT shows acute sigmoid diverticulitis without complication. Emergency Department Course and Treatment: Patient will be treated with Augmentin. I believe this is a safer choice than Cipro and Flagyl given that he is on Coumadin. Patient was advised to follow-up with his doctor for recheck of his INR. Complications were discussed. Return if worse. He was given a short course of pain medicine as well. Treatment Plan: As above Disposition: Discharged Impression: 1. Acute diverticulitis This note was generated with [employer] dictation software. It may contain incorrect words, spelling, and punctuation that were not noted in review of the chart prior to signing ED Disposition - Plan for ED Patient: Chief Complaint: Abd Pain Referrals: Darius Dillon III, MD [Primary Care Provider] -
[2018-01-05 03:13] LABS: International Normalized Ratio 3.1
--- NOTE | 2018-01-05 03:14 | ED.DEP ---
ED Disposition - Plan for ED Patient: Chief Complaint: Abd Pain Instructions: ED Diverticulitis Prescriptions: Oxycodone HCl/Acetaminophen [Percocet 5/325] 1 tab PO Q6H PRN PRN 3 Days #12 tab PRN Reason: Pain Amox/Clavulanate Tablet [Augmentin Tablet] 875 mg PO Q12H #20 tab Referrals: Darius Dillon III, MD [Primary Care Provider] -
[2018-01-05] MEDS: Morphine 4 MG/ML Syringe IV (03:17)
[2018-01-05] MEDS: Amox/Clavulanate 875 MG Tablet PO (03:17)
[2018-01-05 03:26] VITALS: PULSE 88; RESP 16; O2SAT 98
== END 2018-01-05 03:26 | disposition home or self-care (01) ==
PROVIDERS: Emergency Provider Emergency Medicine; Family Provider Family Medicine; PCP Family Medicine
DX: K57.32 Diverticulitis of large intestine without perforation or abscess without bleeding (principal); Z79.01 Long term (current) use of anticoagulants; Z79.899 Other long term (current) drug therapy; Z95.2 Presence of prosthetic heart valve; Z90.49 Acquired absence of other specified parts of digestive tract
CPT/HCPCS: 74176; 80053; 81001; 83690; 85025; 85610; 96361; 96374; 99284; J7030; A4216

== ENCOUNTER 2018-02-08 06:27 | Day surgery (SDC) | payer OTHER, SELFPAY ==
[2018-02-08 07:17] VITALS: BP 126/94; PULSE 96; RESP 18; TEMP 36.4; O2SAT 100; BMI 26.5
[2018-02-08 09:10] VITALS: BP 109/77; BP 126/94; PULSE 69; RESP 17; TEMP 36.6; O2SAT 96
--- NOTE | 2018-02-08 09:11 | OP.ENDO_ITS ---
Patient Name: Corwin Paredes Procedure Date: 02/08/2018 8:45 AM Date of : 1955 Age: 62 Procedure: Colonoscopy Indications: Diverticulitis Providers: Blake Dillon MD Referring MD: Blake Dillon MD Medicines: See the Anesthesia note for documentation of the administered medications Patient Profile: Last Colonoscopy: none. The patient's first colonoscopy is today. Complications: No immediate complications. Procedure: Pre-Anesthesia Assessment: - Prior to the procedure, a History and Physical was performed, and patient medications and allergies were reviewed. The patient's tolerance of previous anesthesia was also reviewed. The risks and benefits of the procedure and the sedation options and risks were discussed with the patient. All questions were answered, and informed consent was obtained. Prior Anticoagulants: The patient has taken no previous anticoagulant or antiplatelet agents. ASA Grade Assessment: II - A patient with mild systemic disease. After reviewing the risks and benefits, the patient was deemed in satisfactory condition to undergo the procedure. After I obtained informed consent, the scope was passed under direct vision. Throughout the procedure, the patient's blood pressure, pulse, and oxygen saturations were monitored continuously. The Colonoscope was introduced through the anus and advanced to the cecum, identified by appendiceal orifice and ileocecal valve. The colonoscopy was performed without difficulty. The patient tolerated the procedure well. The quality of the bowel preparation was good. The ileocecal valve was photographed. Scope In: 8:54:20 AM Scope Withdrawal Time 0 hours 7 minutes 23 seconds Scope Out: 9:04:54 AM Total Procedure Duration Time 0 hours 10 minutes 34 seconds Findings: The digital rectal exam findings include internal hemorrhoids that prolapse with straining, but spontaneously regress to the resting position (Grade II) and enlarged prostate. Many diverticula were found in the sigmoid colon. The exam was otherwise without abnormality. Impression: - Internal hemorrhoids that prolapse with straining, but spontaneously regress to the resting position (Grade II) and enlarged prostate found on digital rectal exam. - Diverticulosis in the sigmoid colon. - The examination was otherwise normal. - No specimens collected. Recommendation: - Discharge patient to home. - Resume previous diet. - Continue present medications. - Repeat colonoscopy in 10 years for screening purposes. Procedure Code(s): --- Professional --- 49274, Colonoscopy, flexible; diagnostic, including collection of specimen(s) by brushing or washing, when performed (separate procedure) Diagnosis Code(s): --- Professional --- K64.1, Second degree hemorrhoids K57.32, Diverticulitis of large intestine without perforation or abscess without bleeding N40.0, Benign prostatic hyperplasia without lower urinary tract symptoms K57.30, Diverticulosis of large intestine without perforation or abscess without bleeding CPT copyright 2017 [employer]. All rights reserved. The codes documented in this report are preliminary and upon remote medical coder review may be revised to meet current compliance requirements. Blake Dillon MD 02/08/2018 9:11:05 AM This report has been signed electronically. Number of Addenda: 0 Note Initiated On: 02/08/2018 8:45 AM
[2018-02-08 09:15] VITALS: BP 126/94; BP 95/74; PULSE 73; RESP 17; O2SAT 96
[2018-02-08 09:20] VITALS: BP 126/94; BP 130/84; PULSE 72; RESP 18; O2SAT 97
[2018-02-08 09:25] VITALS: BP 126/94; BP 133/84; PULSE 68; RESP 16; TEMP 36.5; O2SAT 96
[2018-02-08 09:53] VITALS: BP 126/94
== END 2018-02-08 09:54 | disposition home or self-care (01) ==
LOC: EN 06:28 → AC 06:28
PROVIDERS: Family Provider Family Medicine; PCP Family Medicine; Referring Provider Surgery; Visit Provider Surgery
PROC: 0DJD8ZZ Inspection of Lower Intestinal Tract, Via Natural or Artificial Opening Endoscopic (ICD-10-PCS; CPT 45378; principal; 2018-02-08 08:25)
DX: K57.32 Diverticulitis of large intestine without perforation or abscess without bleeding (principal); K64.1 Second degree hemorrhoids; I48.91 Unspecified atrial fibrillation; I10 Essential (primary) hypertension; E78.5 Hyperlipidemia, unspecified; N40.0 Benign prostatic hyperplasia without lower urinary tract symptoms; H91.90 Unspecified hearing loss, unspecified ear; I25.2 Old myocardial infarction; Z79.01 Long term (current) use of anticoagulants; Z79.899 Other long term (current) drug therapy; Z95.2 Presence of prosthetic heart valve
CPT/HCPCS: 45378; J7120; J2405

== ENCOUNTER → 2018-12-19 09:56 | Outpatient (CLI) | payer BC, OTHER, SELFPAY ==
[2018-12-19 11:24] LABS: PSA,Total- Diagnostic 5.52 ng/mL (0.0-4.0)
== END ==
PROVIDERS: Family Provider Family Medicine; PCP Family Medicine; Referring Provider Urology; Visit Provider Urology
DX: R97.20 Elevated prostate specific antigen [PSA] (principal)
CPT/HCPCS: 36415; 84153

== ENCOUNTER 2020-12-08 17:38 | Emergency (ER) | payer BC, OTHER, SELFPAY ==
[2020-12-08 17:39] VITALS: BP 123/75; PULSE 89; RESP 18; TEMP 36.5; O2SAT 100; BMI 25.0
[2020-12-08 19:32] VITALS: BP 123/75; PULSE 89; RESP 18; TEMP 36.5; O2SAT 100
--- NOTE | 2020-12-08 19:59 | EDS_ITS ---
HPI History of Present Illness Chief Complaint: General Illness Detail of Chief Complaint: Sore throat, myalgias, depression, and suicidal ideation Informant: patient Narrative Narrative: Patient presents to the emergency department with multiple complaints today. Patient states that over the last 5 days has had a sore throat. Patient was seen [address] Caesar Gracia and was diagnosed with parotitis and started on antibiotics. Patient cannot remember the name of the antibiotic. Patient states that he is got body aches and has hard time sleeping at night. He continues to complain of a sore throat. Patient now has diarrhea. He denies sick contacts. He has not had the Covid vaccine. Patient had subjective fever at home and chills. Patient also states that he has been feeling increasingly depressed over the last several days. Patient is having suicidal thoughts. Patient is having thoughts of shooting himself. Patient does not own a gun. [facility] Medical History (Updated 12/08/20 @ 22:[address] Renetta Thorne DO) Aortic valve defect Bowel obstruction BPH (benign prostatic hyperplasia) Chronic cholecystitis with calculus Hematoma Hyperlipidemia Partial deafness Sigmoid diverticulitis Home Medications warfarin 12 mg PO DAILY 06/11/17 [History Last Taken Unknown] gemfibrozil 600 mg PO BID 01/05/18 [History Last Taken Unknown] acetaminophen [Tylenol] 325 mg PO Q6H PRN PRN 02/05/18 [History Last Taken 02/06/18] enoxaparin 80 mg SUBCUT X1 02/08/18 [History Last Taken 02/07/18] hydrocodone-acetaminophen 1 tab PO Q4H PRN PRN 2 Days #10 tablet 12/08/20 [Rx Last Taken Unknown] Allergy/AdvReac Type Severity Reaction Status Date / Time No Known Allergies Allergy Verified 12/08/20 17:41 Family History Mother CVA (cerebral vascular accident) CHF (congestive heart failure) Father Diabetes Parkinson disease Brother Cancer prostate cancer Surgical History H/O aortic valve replacement History of hernia repair History of prostate biopsy S/P aortic valve replacement S/P cholecystectomy Social History (Updated 01/25/18 @ 13:[address] Blake Dillon MD) Smoking Status: Never smoker ROS ROS ED Constitutional Constitutional ED: Reports systems reviewed and no addt'l complaints, except as documented; Denies body ache(s), change in weight or chills Eyes Eyes: Denies acute decrease in peripheral vision, change in vision, double vision or loss of vision ENT ENT ED: Reports none and sore throat; Denies ear pain, lip swelling, loss taste/smell, neck pain or otalgia Cardiovascular Cardiovascular: Reports none; Denies abdominal pain, chest pain with activity, leg edema, lightheadedness, palpitations, rapid heart rate or syncope Respiratory/Chest Respiratory/Chest: Reports none; Denies change in mental status, dry cough, dyspnea, hemoptysis, shortness of breath at rest or shortness of breath with exertion Gastrointestinal Gastrointestinal: Reports none and diarrhea; Denies abdominal pain, change in stool character, hematemesis, hematochezia, melena, rectal bleeding or vomiting Genitourinary Genitourinary ED: Reports none; Denies abdominal discomfort, anuria, dysuria, genital pain or polyuria Musculoskeletal Musculoskeletal: Reports none and myalgias; Denies arthralgias, back pain, difficulty walking, extremity pain or muscle weakness Integumentary Reports none; Denies abscess or rash Neurologic Neurologic: Reports none; Denies abnormal gait, confusion, focal weakness, frequent falls, headache(s), loss of vision, numbness, paresthesias, radicular pain, vertigo or weakness Psychiatric Psychiatric: Reports systems reviewed and no addt'l complaints, except as documented, none, depression and suicidal thoughts; Denies behavioral changes, confusion, difficulty concentrating, hallucinations, suicidal ideation, tactile hallucinations or visual hallucinations Endocrine Endocrinology: Denies none, cold intolerance, excessive sweating, fatigue or heat intolerance Hematologic/Lymphatic Hematologic/Lymphatic: Reports none; Denies anemia, easy bleeding or easy bruising Allergic/Immunologic Allergic/Immunologic ED: Denies as per HPI, none, lip swelling, mouth swelling, throat swelling, tongue swelling or hives EXAM Physical Exam Const Vital Signs: 12/08/20 17:39 12/08/20 19:32 12/08/20 19:33 Temperature 97.7 F L 97.7 F L Temperature Source Temporal Temporal Pulse Rate 89 89 Respiratory Rate 18 18 Respiratory Effort Normal Non-Labored Blood Pressure 123/75 H 123/75 H Blood Pressure Mean 91 91 Pulse Ox 100 100 Oxygen Delivery Method Room Air Room Air 12/08/20 21:31 Temperature Temperature Source Pulse Rate 79 Respiratory Rate 14 Respiratory Effort Blood Pressure 125/74 H Blood Pressure Mean 91 Pulse Ox 97 Oxygen Delivery Method Room Air Positive well nourished and well developed General Appearance ED: well developed and NAD HEENT Reports TM's clear and moist mucous membranes normocephalic and atraumatic; Negative for trauma or tenderness Tympanic Membrane ED: Yes TM's clear Eyes PERRL and EOMs intact bilaterally General Eye ED: Negative for pale conjunctiva or scleral icterus Neck no lymphadenopathy, supple and no JVD General: Negative for tenderness Chest Wall inspection of chest normal and palpation of chest normal Chest: Negative for tenderness Resp normal respiratory effort and clear to auscultation bilaterally Effort and Inspection: Negative for respiratory distress or pain with movement Auscultation: Negative for rhonchi, wheezes or diminished lung sounds Cardio regular rate, regular rhythm, S1 normal heart sound, S2 normal heart sound and no murmurs Peripheral Pulses: pulses 2+ throughout GI normal to inspection, nondistended, normoactive bowel sounds, soft to palpation, non-tender, non-distended and no masses Back/Spine no CVA tenderness and no thoracic nor lumbar tenderness Extremity normal to inspection General Extremety ED: Negative for edema General Extremity: Negative for edema Neuro oriented x3, CN's II-XII intact bilaterally, no sensory deficits noted and gait normal Sensorium / Orientation: awake, alert, oriented to person, oriented to place and oriented to time Motor Exam: strength 5/5 throughout and strength abnormal Psych mental status grossly normal Psych Narrative: Flat affect Mood & Affect: depressed Skin no rashes or lesions noted and no wounds MDM MDM MDM Narrative Medical decision making narrative: Patient noted to have Covid 19. Patient has unremarkable vital signs and no respiratory symptoms. I did have patient evaluated by transition social worker and he is denying wanting to act out on any thoughts of self-harm. Patient states that he just not been able to sleep and he has had a lot of pain related to body aches and just wants to have somebody treat his pain. He otherwise has no psychiatric history. Patient on repeat exam does state that he would never harm himself and does not have access to guns. Patient can contract for safety. is comfortable taking him home. automobile body worker did not feel patient was a threat to self. I agree that patient is safe for discharge. I did treat him with morphine and Zofran in department. He was feeling somewhat improved. I offered the monoclonal antibody infusion as an outpatient however he does not want to pursue that. Lab Data Attestation: I reviewed the patient's lab results. Labs: Laboratory Results - last 24 hr 12/08/20 12/08/20 12/08/20 19:46 19:46 20:30 WBC 3.1 L RBC 5.63 Hgb 16.5 Hct 50.2 MCV 89.2 MCH 29.3 MCHC 32.9 RDW Std Deviation 45.0 H RDW Coeff of [place] 13.8 Plt Count 149 L MPV 11.3 Immature Gran % (Auto) 0.300 Neut % (Auto) 71.3 H Lymph % (Auto) 18.2 L [place] % (Auto) 9.6 Eos % (Auto) 0.0 Baso % (Auto) 0.6 Absolute Neuts (auto) 2.2 Absolute Lymphs (auto) 0.57 L Nucleated RBC % 0 Differential Comment SCANNED Diff Path Review May foll Platelet Estimate SLT DEC RBC Morphology NORM C+C Sodium 137 Potassium 4.0 Chloride 106 Carbon Dioxide 25.0 Anion Gap 6 BUN 17 Creatinine 1.24 Estim Creat Clear Calc 69.05 Est GFR (MDRD) Af Amer 75 Est GFR (MDRD) Non-Af 62 BUN/Creatinine Ratio 13.7 Glucose 112 H Calcium 8.3 L Total Bilirubin 0.60 AST 64 H ALT 56 Alkaline Phosphatase 85 Total Protein 7.4 Albumin 3.5 Globulin 3.9 Albumin/Globulin Ratio 0.9 Urine Opiates Screen NEGATIVE Urine Methadone Screen NEGATIVE Ur Barbiturates Screen NEGATIVE Ur Phencyclidine Scrn NEGATIVE Ur Amphetamines Screen NEGATIVE U Methamphetamin-MDMA NEGATIVE U Benzodiazepines Scrn NEGATIVE Urine Cocaine Screen NEGATIVE U Cannabinoids Screen NEGATIVE Ur Drug Screen Comment Ethyl Alcohol 12/08/20 20:55 WBC RBC Hgb Hct MCV MCH MCHC RDW Std Deviation RDW Coeff of [place] Plt Count MPV Immature Gran % (Auto) Neut % (Auto) Lymph % (Auto) [place] % (Auto) Eos % (Auto) Baso % (Auto) Absolute Neuts (auto) Absolute Lymphs (auto) Nucleated RBC % Differential Comment Diff Path Review Platelet Estimate RBC Morphology Sodium Potassium Chloride Carbon Dioxide Anion Gap BUN Creatinine Estim Creat Clear Calc Est GFR (MDRD) Af Amer Est GFR (MDRD) Non-Af BUN/Creatinine Ratio Glucose Calcium Total Bilirubin AST ALT Alkaline Phosphatase Total Protein Albumin Globulin Albumin/Globulin Ratio Urine Opiates Screen Urine Methadone Screen Ur Barbiturates Screen Ur Phencyclidine Scrn Ur Amphetamines Screen U Methamphetamin-MDMA U Benzodiazepines Scrn Urine Cocaine Screen U Cannabinoids Screen Ur Drug Screen Comment Ethyl Alcohol < 3.0 Discharge Plan Triage Chief Complaint: General Illness ED Provider: Renetta Thorne Dx/Rx/DC Orders Clinical Impression: COVID-19 Instructions: Coronavirus Disease 2019 (COVID-19): Overview, Caring for Someone Who Has COVID-19, How COVID-19 Spreads Prescriptions: New hydrocodone-acetaminophen [hydrocodone-acetaminophen] 1 TABLET tablet 1 tab PO Q4H PRN PRN (Reason: Pain) 2 Days Qty: 10 RF: 0 No Action warfarin 5 MG tablet 12 mg PO DAILY RF: 0 gemfibrozil 600 MG tablet 600 mg PO BID RF: 0 acetaminophen [Tylenol] 325 MG capsule 325 mg PO Q6H PRN PRN (Reason: Pain) RF: 0 enoxaparin 80 MG/0.8 ML syringe 80 mg subcut X1 RF: 0 Primary Care Provider: Darius Dillon III Referrals: Darius Dillon III, MD [Primary Care Provider] - Disposition Disposition: Home, Self Care
[2020-12-08 20:00] LABS: Absolute Lymphocyte Count 0.57 X10^3/uL (0.83-4.51); Absolute Neutrophil Count 2.2 X10^3/uL (2.0-7.7); Basophil# 0.02 X10^3/uL; Basophil% 0.6 % (0-1); Hematocrit 50.2 % (40-54); Hemoglobin 16.5 g/dL (13.0-16.5); Lymphocyte # 0.57 X10^3/ul (0.83-4.51); Lymphocyte % 18.2 % (19-41); Mean Corp Hgb Conc 32.9 g/dL (32-36); Mean Corpuscular Hgb 29.3 pg (27.0-32.0); Mean Corpuscular Volume 89.2 fL (80-94); Mean Platelet Vol. 11.3 fl (6.2-12.0); Monocyte% 9.6 % (0-10); NRBC Flagged by Analyzer 0 % (0-5); Neutrophil # 2.24 X10^3/uL (2.7-7.7); Neutrophil % 71.3 % (47-70); POSITIVE DIFFERENTIAL YES; Platelet Count 149 K/mm3 (150-450); RBC Distribution Width CV 13.8 % (11.6-14.6); Red Blood Count 5.63 M/mm3 (4.6-6.2); White Blood Count 3.1 K/mm3 (4.4-11.0)
[2020-12-08 20:16] LABS: Differential Indicated SCAN CRITERIA MET
[2020-12-08 20:30] LABS: ALB/GLOB Ratio 0.9 RATIO (0.9-2.4); AST(SGOT) 64 U/L (15-37); Alanine Aminotransfer ALT/SGPT 56 U/L (16-61); Albumin, Serum 3.5 g/dL (3.2-5.0); Alkaline Phosphatase 85 U/L (45-117); Anion Gap 6 (5-15); BUN 17 mg/dL (7-18); BUN/Creat Ratio 13.7 RATIO (10-20); Calcium,Total 8.3 mg/dL (8.5-10.1); Chloride 106 mmol/L (98-107); Creatinine, Serum 1.24 mg/dL (0.70-1.30); EST Glomerular Filtration Rate 62 mL/min (>60); Est Glom Filt Rate - Afr Amer 75 mL/min (>60); Estimated Creatinine Clearance 69.05 ml/min; Globulin 3.9 g/dL (2.2-4.2); Glucose 112 mg/dL (74-106); Protein, Total 7.4 g/dL (6.4-8.2); Sodium Level 137 mmol/L (136-145)
--- NOTE | 2020-12-08 20:40 | CM.ED ---
SOCIAL WORK Reason for Consult: Suicidal ideation Referral Source: Dr. Thorne Met with patient and in room. Patient gave permission for this worker to speak openly with present. Patient partially deaf and can only read lips. Patient reports inability to eat over the last weak and has been in pain all over. Patient states, I can't take the pain. I can't sleep, can't eat. and patient report no history of mental health. states, the other day patient stated he would shoot himself. reports no guns in the home. Patient denies any current suicidal ideation, plan, or intent. Patient stating, I just don't want to feel like this. Work up being completed at this time. Emotional support provided. This worker to remain available for needs. Collaboration with Dr. Thorne, patient does not require a sitter. Nurse updated. Ecotr Santacruz, [employer], APPLIANCE REPAIRER
[2020-12-08 20:46] LABS: Amphetamine Urine VISTA NEGATIVE (<1000 ng/mL); Barbiturate Urine VISTA NEGATIVE (< 200 ng/mL); Benzodiazepine Urine VISTA NEGATIVE (< 200 ng/mL); Cocaine Urine VISTA NEGATIVE (< 300 ng/mL); Ecstacy Urine VISTA NEGATIVE (< 500 ng/mL); Methadone Urine VISTA NEGATIVE (< 300 ng/mL); PCP Urine VISTA NEGATIVE (< 25 ng/mL); THC Urine VISTA NEGATIVE (< 50 ng/mL); Vista UDS pH Range 5
[2020-12-08] MEDS: Morphine 4 MG/ML Syringe IV (21:17)
[2020-12-08] MEDS: Ondansetron 4 MG/2 ML Vial IV (21:17)
[2020-12-08 21:26] LABS: Differential Comment SCANNED; Platelet Estimate SLT DEC (ADEQ); Red Cell Morphology NORM C+C NORMAL (NORM C&C)
[2020-12-08 21:26] LABS: Alcohol, Blood (Medical)-Serum < 3.0 mg/dL
[2020-12-08 21:31] VITALS: BP 125/74; PULSE 79; RESP 14; O2SAT 97
[2020-12-08 22:47] VITALS: BP 128/74; PULSE 78; RESP 14; O2SAT 96
[2020-12-09 16:58] LABS: Pathologist Review Reviewed
== END 2020-12-08 22:48 | disposition home or self-care (01) ==
PROVIDERS: Emergency Provider Emergency Medicine; PCP Family Medicine
DX: U07.1 COVID-19 (principal); F32.9 Major depressive disorder, single episode, unspecified; R45.851 Suicidal ideations; R19.7 Diarrhea, unspecified; E78.5 Hyperlipidemia, unspecified; N40.0 Benign prostatic hyperplasia without lower urinary tract symptoms; Z79.01 Long term (current) use of anticoagulants; Z79.899 Other long term (current) drug therapy; Z95.2 Presence of prosthetic heart valve
CPT/HCPCS: 80053; 80307; 82077; 85025; 87426; 96374; 96375; 99283; A4216; J2405

== ENCOUNTER 2020-12-14 22:03 | Emergency (ER) | payer BC, OTHER, SELFPAY ==
[2020-12-14 22:08] VITALS: BP 106/72; PULSE 105; RESP 18; TEMP 36.1; O2SAT 99; BMI 25.4
[2020-12-15] MEDS: Silver Nitrate (BKC) 1 EACH TOPICAL (00:39)
--- NOTE | 2020-12-15 01:54 | EX.ED.DYSGE1 ---
HPI History of Present Illness Chief Complaint: Nosebleed Informant: patient and spouse/S.O. Associated Symptoms Associated Symptoms ED: cough Narrative Narrative: Patient has had intermittent nosebleed all day today. Mostly from the right side. Swallowing a little blood but he has been tilting his chin up and back, and then forward having blood come out both sides as well. No lightheadedness or syncope. However he feels poorly because he has had Covid for about a week. Has had some nausea with that and poor appetite, trouble sleeping, achy and malaised. No dyspnea. He is on Coumadin because of a mechanical heart valve. He was using nasal decongestant spray in his nose today and yesterday. [facility] Medical History Aortic valve defect Bowel obstruction BPH (benign prostatic hyperplasia) Chronic cholecystitis with calculus Hematoma Hyperlipidemia Partial deafness Sigmoid diverticulitis Home Medications warfarin 12 mg PO DAILY 06/11/17 [History Last Taken Unknown] gemfibrozil 600 mg PO BID 01/05/18 [History Last Taken Unknown] acetaminophen [Tylenol] 325 mg PO Q6H PRN PRN 02/05/18 [History Last Taken 02/06/18] enoxaparin 80 mg SUBCUT X1 02/08/18 [History Last Taken 02/07/18] hydrocodone-acetaminophen 1 tab PO Q4H PRN PRN 2 Days #10 tablet 12/08/20 [Rx Last Taken Unknown] ondansetron 8 mg PO Q8H PRN PRN #20 tab 12/15/20 [Rx Last Taken Unknown] Allergy/AdvReac Type Severity Reaction Status Date / Time No Known Allergies Allergy Verified 12/14/20 22:08 Family History Mother CVA (cerebral vascular accident) CHF (congestive heart failure) Father Diabetes Parkinson disease Brother Cancer prostate cancer Surgical History H/O aortic valve replacement History of hernia repair History of prostate biopsy S/P aortic valve replacement S/P cholecystectomy Social History Smoking Status: Never smoker ROS ROS ED Constitutional Constitutional ED: Reports body ache(s), chills, fatigue, fever(s) and malaise Eyes Eyes: Denies change in vision or diplopia ENT ENT ED: Reports epistaxis; Denies rhinorrhea or sore throat Cardiovascular Cardiovascular: Denies chest pain or palpitations Respiratory/Chest Respiratory/Chest: Reports cough Gastrointestinal Gastrointestinal: Reports diarrhea; Denies abdominal pain, nausea or vomiting Genitourinary Genitourinary ED: Denies dysuria or hematuria Musculoskeletal Musculoskeletal: Denies back pain or neck pain Integumentary Denies abscess or rash Neurologic Neurologic: Denies paresthesias or weakness Psychiatric Psychiatric: Denies anxiety or suicidal thoughts EXAM Physical Exam Const Vital Signs: 12/14/20 22:08 Temperature 97.0 F L Temperature Source Temporal Pulse Rate 105 H Respiratory Rate 18 Blood Pressure 106/72 Blood Pressure Mean 83 Pulse Ox 99 Oxygen Delivery Method Room Air Positive well nourished and well developed Constitutional Narrative: Malaised-appearing, no distress General Appearance ED: well developed and NAD HEENT Reports moist mucous membranes HEENT Narrative: Clotted blood in the right naris, clotted blood in the posterior oropharynx, no active bleeding. The left is clear. He is able to move air through both nares. There are irritated areas just anterior to the clot along the septum on the right that are nonbleeding and may be the source of epistaxis. normocephalic and atraumatic Eyes PERRL and EOMs intact bilaterally Neck full ROM and supple Resp normal respiratory effort and clear to auscultation bilaterally Cardio regular rate, regular rhythm and no murmurs Rate: Negative for tachycardic GI non-tender and non-distended Auscultation: normoactive bowel sounds Palpation: soft Back/Spine no CVA tenderness General Back: other FROM Extremity normal to inspection and no calf tenderness General Extremety ED: Negative for edema, pulses abnormal or tenderness General Extremity: Negative for edema or pulses abnormal Neuro oriented x3, CN's II-XII intact bilaterally and no sensory deficits noted Sensorium / Orientation: awake and alert Motor Exam: strength 5/5 throughout Skin no rashes or lesions noted and no wounds MDM MDM MDM Narrative Medical decision making narrative: I cauterized these areas in the right septum with silver nitrate, and on reevaluation 2 hours into the patient's stay he has had no recurrent bleeding. We checked his INR it is 12. According to current chest guidelines, it is reasonable to give him vitamin K 5 mg orally, and discharge him home given that he has had minor epistaxis that is currently well controlled for several hours. This should provide safe lowering of his INR within 24 hours, then he should get it rechecked and call his doctor for further dosing recommendations. We discussed reasons to return they are comfortable with that plan. Also will prescribe the patient some Zofran to use to help out with his Covid symptoms and lack of appetite. Lab Data Attestation: I reviewed the patient's lab results. Labs: Laboratory Results - last 24 hr 12/15/20 00:50 PT 92.0 H INR 12.0 H* Discharge Plan Triage Chief Complaint: Nosebleed ED Provider: Sumanth Renteria Dx/Rx/DC Orders Clinical Impression: Acute anterior epistaxis, Supratherapeutic INR, COVID-19 Instructions: ED Epistaxis (Adult) Prescriptions: New ondansetron [ondansetron] 4 MG tablet 8 mg PO Q8H PRN PRN (Reason: Nausea) Qty: 20 RF: 0 Continued gemfibrozil 600 MG tablet 600 mg PO BID RF: 0 acetaminophen [Tylenol] 325 MG capsule 325 mg PO Q6H PRN PRN (Reason: Pain) RF: 0 enoxaparin 80 MG/0.8 ML syringe 80 mg subcut X1 RF: 0 hydrocodone-acetaminophen 1 TABLET tablet 1 tab PO Q4H PRN PRN (Reason: Pain) 2 Days Qty: 10 RF: 0 Held warfarin 5 MG tablet 12 mg PO DAILY RF: 0 Hold Instructions: Resume on 12/17/20. AFTER you have an INR and recommendations from your primary care doctor on restarting, with regards to the day and the dose but no earlier than the Primary Care Provider: Kvng Tolbert Referrals: Kvng Tolbert MD [Primary Care Provider] - 2 Days Disposition Disposition: Home, Self Care
[2020-12-15] MEDS: Phytonadione (Vit K1) 5 MG TABLET PO (02:48)
[2020-12-15 02:49] VITALS: BP 112/72; PULSE 85; RESP 16; O2SAT 97
== END 2020-12-15 02:49 | disposition home or self-care (01) ==
PROVIDERS: Emergency Provider Emergency Medicine; PCP Family Medicine
DX: R04.0 Epistaxis (principal); R05 Cough; R19.7 Diarrhea, unspecified; E78.5 Hyperlipidemia, unspecified; N40.0 Benign prostatic hyperplasia without lower urinary tract symptoms; Z79.01 Long term (current) use of anticoagulants; Z79.899 Other long term (current) drug therapy; Z95.2 Presence of prosthetic heart valve; R79.1 Abnormal coagulation profile
CPT/HCPCS: 30901; 85610; 99283

== ENCOUNTER → 2021-11-28 | Outpatient (CLI) | payer OTHER, SELFPAY ==
[2021-11-28 12:42] LABS: International Normalized Ratio 3.4; Prothrombin Time (Protime)PT. 34.3 SECONDS (11.7-14.9)
== END | disposition home or self-care (01) ==
PROVIDERS: PCP Family Medicine; Visit Provider Family Medicine
DX: Z79.01 Long term (current) use of anticoagulants (principal)
CPT/HCPCS: 85610

== ENCOUNTER → 2022-11-09 | Outpatient (CLI) | payer OTHER, SELFPAY ==
[2022-11-09 11:57] LABS: PSA,Total - Annual Screen 8.24 ng/mL (0.00-4.00)
[2022-11-10 13:08] LABS: PSA, Free 1.64 ng/mL
== END | disposition home or self-care (01) ==
LOC: LAB 11:03
PROVIDERS: PCP Family Medicine; Referring Provider Urology; Visit Provider Urology
DX: N40.1 Benign prostatic hyperplasia with lower urinary tract symptoms (principal)
CPT/HCPCS: 36415; 84153; 84154; G0103

== ENCOUNTER → 2022-12-13 | Outpatient (CLI) | payer OTHER, SELFPAY ==
--- NOTE | 2022-12-13 10:45 | MRI_ITS ---
PROSTATE MRI HISTORY/INDICATION: Elevated PSA TECHNIQUE: Multiplanar, multisequence imaging of the pelvis in accordance with PIRADS recommendations before and after intravenous administration of 20 mL clariscan on a 1.5 TE platform using external phased array coil. Dedicated 3 plane small field of view T2 FSE, axial diffusion-weighted imaging with width B values 50-800 s/mm2 and calculated f=9403 s/mm2 and ADC map; and axial 3-D dynamic contrast enhanced T1 weighted images with temporal resolution in 3 mm slice thickness in addition to full pelvis postcontrast T1-weighted imaging. COMPARISON:None FINDINGS: Size: 3.8 x 5.4 x 5.1 (Lx W x H) cm for 54.4 cubic cm. Quality: Excellent Hemorrhage: Not present Peripheral zone: Slightly heterogeneous high signal. Transition zone: Moderate heterogeneity consistent with prostatic hyperplasia. Focal finding as below. Lesion #1: Location: right basilar transition zone posterior on series 9 image 9, axial T2 Size: 0.7 x 0.9 cm T2: Ill-defined hypointense nodule on image 9 of series 9 with indistinct/incomplete margins, series category 4/5. DWI: focal moderately hyperintense on high b-value DWI and markedly hypointense on ADC, sequence category 4 /5 DCE: No early enhancement, negative Prostate margin: Intact Lesion overall PI-RADS: 3/5 Neurovascular bundles: Not involved Seminal vesicles: not involved Lymph nodes: no lymphadenopathy Bones: no osseous metastases suggested Other pelvic organs: normal MRI/Pelvis W/WO Contrast IMPRESSION: 1. PI-RADS 4 - High (clinically significant cancer is likely to be present). 7 x 9 mm focal noncircumscribed hypodense nodule and moderate restricted diffusion in the right posterior basilar transitional zone (image 22 series 600/601; image 9 series 9). PI?RADSR v2.1 Assessment Categories PI-RADS 1 ? Very low (clinically significant cancer is highly unlikely to be present) PI-RADS 2 ? Low (clinically significant cancer is unlikely to be present) PI-RADS 3 ? Intermediate (the presence of clinically significant cancer is equivocal) PI-RADS 4 ? High (clinically significant cancer is likely to be present) PI-RADS 5 ? Very high (clinically significant cancer is highly likely to be present) Electronically Signed: Jarek Carter MD ([place]) at 15:57 EDT ,
--- NOTE | 2022-12-13 11:27 | RAD_ITS ---
STUDY: X-RAY - ORBITS REASON FOR EXAM: Male, 67 years old. HX METAL -PRE MRI TECHNIQUE: 2 view(s) of the orbits were obtained. COMPARISON: None. FINDINGS: Normal bilateral orbits without a metallic orbital foreign body. Normal visualized facial bones. Normal paranasal sinuses. The soft tissue structures are unremarkable. RAD/Orbits for Foreign Body IMPRESSION: No demonstrated metallic orbital foreign body. The patient is cleared for an MRI examination. Electronically Signed: Michael Richards MD at 11:45 EDT ,
[2022-12-13 12:00] LABS: CREATININE FINGERSTICK 1.1 mg/dL (0.70-1.30); EGFR FINGERSTICK > 60.0000 mL/min (>60)
== END | disposition home or self-care (01) ==
PROVIDERS: PCP Family Medicine; Referring Provider Urology; Visit Provider Urology
DX: R97.20 Elevated prostate specific antigen [PSA] (principal)
CPT/HCPCS: 70030; 72197; A9575

== ENCOUNTER → 2023-01-16 | Outpatient (CLI) | payer OTHER, SELFPAY ==
--- NOTE | 2023-01-16 | PROSBIL_PTH ---
PATIENT: JORDI PALM LOC: [facility] U#:[id number] AGE/SX: 67/M ROOM: RE01/16/[address]: Dr. Delmer Pleitez MD : 1955 BED: DIS: 01/16/2023 SPEC #: [id number] RECD: 01/16/23 16:16 STATUS: JIMMY REHeri #: [id number] ISABELLE: 01/16/23 00:[address]: Delmer Pleitez DEPT: SURGICAL PATHOLOGY RECD BY: Devang Fabian ENTERED: 01/17/23 09:19 SP TYPE: PROST BX ELAINE DR: Dr. Jesus Lujan MD Tissues: A - PROSTATE RIGHT B - PROSTATE RIGHT C - PROSTATE RIGHT D - PROSTATE LEFT E - PROSTATE LEFT F - PROSTATE LEFT Procedures: PROSTATE BX HEADER OPERATION: Prostate biopsy PRE-OP DIAGNOSIS: Elevated PSA TISSUE SUBMITTED: A - Right apex, B - Right mid, C - Right base, D - Left apex, E - Left mid, F - Left base MICROSCOPIC DIAGNOSIS A. Right prostate, apex, core biopsy: Prostatic tissue, negative for malignancy. Chronic inflammation. B. Right prostate, mid, core biopsy: Prostatic tissue, negative for malignancy. Moderate acute and chronic inflammation. C. Right prostate, base, core biopsy: Focal high-grade prostatic intraepithelial neoplasia (HGPIN). D. Left prostate, apex, core biopsy: Focal high-grade prostatic intraepithelial neoplasia (HGPIN). ? [facility]. See comment. E. Left prostate, mid, core biopsy: Prostatic tissue, negative for malignancy. F. Left prostate, base, core biopsy: Focal high-grade prostatic intraepithelial neoplasia (HGPIN). See comment. SJ:rg 01/18/2023 COMMENT D & F. Immunohistochemistry ([id number]) supports the above diagnosis. MICROSCOPIC DESCRIPTION Slides are reviewed. GROSS DESCRIPTION A - Received is one container designated prostate, right apex. The specimen consists of three elongated fragments of light parker-white soft tissue each measuring 1.7 cm in length and 0.1 cm in diameter. The specimen is totally submitted in one cassette. B - Received is one container designated prostate, right mid. The specimen consists of three elongated fragments of light parker-white soft tissue measuring 0.6 to 2.0 cm in length and 0.1 cm in diameter. The specimen is totally submitted in one cassette. C - Received is one container designated prostate, right base. The specimen consists of two elongated fragments of light parker-white soft tissue measuring 1.2 and 1.5 cm in length and 0.1 cm in diameter. The specimen is totally submitted in one cassette. D - Received is one container designated prostate, left apex. The specimen consists of two elongated fragments of light parker-white soft tissue each measuring 1.8 cm in length and 0.1 cm in diameter. The specimen is totally submitted in one cassette. E - Received is one container designated prostate, left mid. The specimen consists of two elongated fragments of light parker-white soft tissue measuring 1.7 and 1.9 cm in length and 0.1 cm in diameter. The specimen is totally submitted in one cassette. F - Received is one container designated prostate, left base. The specimen consists of two elongated fragments of light parker-white soft tissue measuring 1.4 and 1.6 cm in length and 0.1 cm in diameter. The specimen is totally submitted in one cassette. / SJ:rg 01/17/2023 TC:3 CPT: 95325 x6
--- NOTE | 2023-01-16 | IMM_PTH ---
PATIENT: JORDI PALM LOC: [facility] U#:[id number] AGE/SX: 67/M ROOM: RE01/16/[address]: Dr. Delmer Pleitez MD : 1955 BED: DIS: 01/16/2023 SPEC #: [id number] RECD: 01/18/23 13:23 STATUS: JIMMY REQ #: [id number] ISABELLE: 01/16/23 00:[address]: Delmer Pleitez DEPT: IMMUNOHISTOCHEMISTRY RECD BY: Gerda Arboleda ENTERED: 01/18/23 13:24 SP TYPE: IMMUNO OTHR DR: Dr. Jesus Lujan MD Tissues: D - PROSTATE LEFT F - PROSTATE LEFT Procedures: 34BE12 (add) P40 (add) 34BE12 (initial) PHYSICIAN & INSTITUTION [place] [id number] SPECIMEN INFORMATION: Tissue Source: D - Left prostate, apex, core biopsy, F - Left prostate, base, core biopsy Clinical Info: Elevated PSA Specimen Number: [id number] D & F CPT code: 86804, 43906 x3 METHODOLOGY: Deparaffinized sections of prefer/formalin-fixed tissue or PAP/DQ stained slides are incubated with monoclonal/polyclonal antibodies/oligonucleotide probes. Localization is made via biotin free immunoperoxidase method. Appropriate controls are performed and reacted as expected. Results on target cell population are indicated in the following table: RESULTS: ANTIBODY / CLONE RESULT Block D P40 (BC28) positive 34BE12 (34BE12) positive Block F P40 (BC28) positive 34BE12 (34BE12) positive These tests were developed and their performance characteristics determined by [facility]. They may not have been cleared or approved by the U.S. Food and Drug Administration. The FDA has determined that such clearance or approval is not necessary. The above immunohistochemical/dualISH markers are ordered and reviewed by the Pathologist. INTERPRETATION: D. Left prostate, apex, core biopsy: Focal high-grade prostatic intraepithelial neoplasia (HGPIN). F. Left prostate, base, core biopsy: Focal high-grade prostatic intraepithelial neoplasia (HGPIN). SJ:vonnie 01/19/2023
== END | disposition home or self-care (01) ==
LOC: LABSPEC 16:36
PROVIDERS: PCP Family Medicine; Referring Provider Urology; Visit Provider Urology
DX: N42.31 Prostatic intraepithelial neoplasia (principal); R97.20 Elevated prostate specific antigen [PSA]; N41.9 Inflammatory disease of prostate, unspecified
CPT/HCPCS: 88305; 88341; 88342; G0416

== ENCOUNTER → 2023-04-26 | Outpatient (CLI) | payer OTHER, SELFPAY ==
--- OUTSIDE RECORDS SUMMARY | 2023-04-26 15:50 | XMS RPT_ITS | CCD ---
Author Name Unknown Address [id number] [place] [address] Organization [facility] Care Team Providers Care Improvement Analyst Name Role Phone LEONEL, RAUL E Unavailable Unavailable LEONEL, RAUL E Unavailable Unavailable LEONEL RAUL Unavailable Unavailable LEONEL, RAUL Unavailable Unavailable CEBUL, JHONY Unavailable Unavailable LEONEL, RAUL Unavailable Unavailable CEBUL, JHONY Unavailable Unavailable 13, Pharmacist Unavailable Tod Tolbert MD Primary Care Provider Rajesh Tadeo MD Primary Care Provider [phone] Tod Tolbert MD Primary Care Provider 13, Pharmacist Unavailable Rajesh Tadeo MD Primary Care Provider Rajesh Tadeo MD Primary Care Provider [phone] 13, Pharmacist Unavailable Rajesh Tadeo MD Primary Care Provider [phone] RAJESH TADEO Primary Care Unavailable RAJESH TADEO Referring Unavailable RAJESH TADEO Referring Unavailable RAJESH TADEO Primary Care Unavailable RAJESH TADEO Referring Unavailable RAJESH TADEO Primary Care Unavailable RAJSEH TADEO Referring Unavailable RAJESH TADEO Primary Care Unavailable RAJESH TADEO Referring Unavailable RAJESH TADEO Primary Care Unavailable RAJESH TADEO Primary Care Unavailable RAJESH TADEO Referring Unavailable RAJESH TADEO Primary Care Unavailable RAJESH TADEO Attending Unavailable RAJESH TADEO Primary Care Unavailable RAJESH TADEO Referring Unavailable GUZMAN PACK Attending Unavailable ELDERBROCK, RAJESH D Primary Care Unavailable ELDERBROCK, RAJESH D Primary Care Unavailable ELDERBROCK, RAJESH D Referring Unavailable ELDERBROCK, RAJESH D Primary Care Unavailable ELDERBROCK, RAJESH D Referring Unavailable ELDERBROCK, RAJESH D Primary Care Unavailable ELDERBROCK, RAJESH D Referring Unavailable ELDERBROCK, RAJESH D Primary Care Unavailable ELDERBROCK, RAJESH D Primary Care Unavailable ELDERBROCK, RAJESH D Referring Unavailable ELDERBROCK, RAJESH D Primary Care Unavailable ELDERBROCK, RAJESH D Referring Unavailable ELDERBROCK, RAJESH D Primary Care Unavailable ELDERBROCK, RAJESH D Referring Unavailable ELDERBROCK, RAJESH D Primary Care Unavailable CARLYLE, RAJESH D Attending Unavailable CARLYLE, RAJESH D Primary Care Unavailable ELDERBROCK, RAJESH D Referring Unavailable Allergies Allergy Classification Reported Allergen(s) Allergy Type Date of Onset Reaction(s) Facility (9 sources) HMG-CoA reductase inhibitor; Translations: [[id number] REDUCTASE INHIBITORS] Drug Intolerance 9 Myalgia [facility] (20 sources) HMG-CoA reductase inhibitor Drug Intolerance 9 algia [facility] Medications Current Medications Medication Drug Class(es) Dates Sig (Normalized) Sig (Original) perflutren lipid microspheres 1.3 mL in NaCl (PF) 0.9% 10 mL injection (DEFINITY) (20 sources) Start: 02-13-2022 End: 05-15-2023 perflutren lipid microspheres 1.3 mL in NaCl (PF) 0.9% 10 mL injection (DEFINITY) 125 ml sodium chloride 9 mg/ml prefilled syringe (20 sources) Start: 02-13-2022 End: 05-15-2023 sodium chloride 0.9 % (flush) 10 mL (BD POSIFLUSH) Completed/Discontinued Medications Medication Drug Class(es) Dates Sig (Normalized) Sig (Original) Acetaminophen (20 sources) acetaminophen (T YLENOL 8 HOUR ORAL) Take by mouth. 0 Active Problems Active Problems Problem Classification Problem Date Documented Date Episodic/Chronic Cardiac dysrhythmias (20 sources) Atrial fibrillation; Translations: [Unspecified atrial fibrillation] Onset: 04-13-2009 04-13-2009 Chronic Disorders of lipid metabolism (20 sources) Hyperlipidemia; Translations: [Other hyperlipidemia] Onset: 04-14-2009 12-25-2020 Chronic Esophageal disorders (1 source) Gastroesophageal reflux disease without esophagitis; Translations: [Gastro-esophageal reflux disease without esophagitis] Chronic Heart valve disorders (20 sources) Presence of prosthetic heart valve; Translations: [History of aortic valve replacement] Onset: 04-30-2017 07-03-2017 Chronic Other aftercare (1 source) salvage determiner (current) use of anticoagulants; Translations: [group home (current) use of anticoagulants] Onset: 01-22-2023 Episodic Other and ill-defined heart disease (1 source) Diastolic dysfunction; Translations: [Other ill-defined heart diseases] Chronic Other ear and sense organ disorders (20 sources) Bilateral hearing loss; Translations: [Unspecified hearing loss, bilateral] Onset: 06-23-2021 Chronic Other nutritional; endocrine; and metabolic disorders (1 source) Obese class I; Translations: [Obesity, unspecified] Chronic Spondylosis; intervertebral disc disorders; other back problems (20 sources) Intervertebral disc disorder of lumbar region with myelopathy; Translations: [Intervertebral disc disorders with myelopathy, lumbar region] Onset: 06-22-2008 06-22-2008 Chronic Sprains and strains (1 source) Injury of thigh; Translations: [Strain of muscle, fascia and tendon of the posterior muscle group at thigh level, right thigh, initial encounter] Episodic Unclassified (1 source) Unknown / UNK(Unknown) Onset: 04-30-2017 Past or Other Problems Problem Classification Problem Date Documented Date Episodic/Chronic Medical examination/evaluatio n (1 source) Encounter for preprocedural cardiovascular examination; Translations: [Encounter for preprocedural cardiovascular examination] Onset: 04-30-2017 Episodic Other aftercare (20 sources) Long-term current use of anticoagulant; Translations: [group home (current) use of anticoagulants] Onset: 03-20-2007 01-09-2017 Episodic Other diseases of veins and lymphatics (20 sources) Venous insufficiency of leg; Translations: [Venous insufficiency (chronic) (peripheral)] Onset: 08-01-2012 08-01-2012 Episodic Other screening for suspected conditions (not mental disorders or infectious disease) (20 sources) Raised prostate specific antigen; Translations: [Elevated prostate specific antigen [PSA]] Onset: 10-20-2010 03-28-2021 Episodic Unclassified (1 source) Encounter for preprocedural cardiovascular examination Onset: 04-30-2017 Results Test Name Value Interpretation Reference Range Facil ity Vital Signs Date Time Vital Sign Value Performing Clinician Ruben velasco 09-04-2022 [id number] Body weight 100.06 kg Guzman Pack MD Work Phone: [facility] 09-04-2022 09:11-0400 Diastolic blood pressure 86 mm[Hg] Guzman Pack MD Work Phone: [facility] 09-04-2022 09:11-0400 Heart rate 65 /min Guzman Pack MD Work Phone: [facility] 09-04-2022 09:11-0400 SaO2% (BldA) [Mass fraction] 98 % Guzman Pack MD Work Phone: [facility] 09-04-2022 09:11-0400 Systolic blood pressure 132 mm[Hg] Guzman Pack MD Work Phone: [facility] 06-27-2022 10:34-0400 Body weight 101.97 kg Rajesh Tadeo MD Work Phone: [facility] 06-27-2022 10:34-0400 Diastolic blood pressure 80 mm[Hg] Rajesh Tadeo MD Work Phone: [facility] 06-27-2022 10:34-0400 Heart rate 74 /min Rajesh Tadeo MD Work Phone: [facility] 06-27-2022 10:34-0400 Respiratory rate 16 /min Rajesh Tadeo MD Work Phone: [facility] 06-27-2022 10:34-0400 Systolic blood pressure 120 mm[Hg] Rajesh Tadeo MD Work Phone: [facility] 02-13-2022 10:22-0500 Body weight 102.24 kg Sarah Bentley ELECTRON BEAM MACHINE WELDER SETTER.[employer]ATTOO IDENT[employer]IER Work Phone: [facility] 02-13-2022 10:22-0500 Diastolic blood pressure 78 mm[Hg] Sarah Bentley ELECTRON BEAM MACHINE WELDER SETTER.TATTOO IDENTIFIER Work Phone: [facility] 02-13-2022 10:22-0500 Heart rate 58 /min Sarah Sheree ELECTRON BEAM MACHINE WELDER SETTER.TATTOO IDENTIFIER Work Phone: [facility] 02-13-2022 10:22-0500 Systolic blood pressure 130 mm[Hg] Sarahjose angel Bentley APRN.TATTOO IDENTIFIER Work Phone: [facility] 12-28-2021 14:40-0400 Body weight 100.25 kg Rajesh Tadeo MD Work Phone: [facility] 12-28-2021 14:40-0400 Diastolic blood pressure 74 mm[Hg] Rajesh Tadeo MD Work Phone: [facility] 12-28-2021 14:40-0400 Heart rate 64 /min Rajesh Tadeo MD Work Phone: [facility] 12-28-2021 14:40-0400 Respiratory rate 16 /min Rajesh Tadeo MD Work Phone: [facility] 12-28-2021 14:40-0400 Systolic blood pressure 120 mm[Hg] Rajesh Tadeo MD Work Phone: [facility] 06-22-2021 17:55-0400 Body weight 99.43 kg Rajesh Tadeo MD Work Phone: [facility] 06-22-2021 17:55-0400 Diastolic blood pressure 68 mm[Hg] Rajesh Tadeo MD Work Phone: [facility] 06-22-2021 17:55-0400 Heart rate 64 /min Rajesh Tadeo MD Work Phone: [facility] 06-22-2021 17:55-0400 Respiratory rate 16 /min Rajesh Tadeo MD Work Phone: [facility] 06-22-2021 17:55-0400 Systolic blood pressure 114 mm[Hg] Rajesh Tadeo MD Work Phone: [facility] Encounters Encounter Date Encounter Type Care Provider Facility Start: 03-28-2023 End: 03-29-2023 ambulatory RAJESH TADEO Facility:[facility] Start: 03-19-2023 Telephone encounter Pharmacist [facility] Procedures Date Procedure Procedure Detail Performing Clinician Start: 12-28-2022 Lipid 1996 panel - S mariann or Plasma Genna Maria [facility] Start: 06-20-2022 Lipid 1996 panel - S mariann or Plasma Guzman Pack MD Work Phone: Start: 02-27-2022 Echo tthrc r-t 2d w/wom-mode compl spec&colr d Sarah Bentley ELECTRON BEAM MACHINE WELDER SETTER.TATTOO IDENTIFIER Work Phone: Start: 11-28-2021 Prothrombin time [facility]ider Start: 09-08-2020 Adult depression screening assessment Tod Tolbert MD Work Phone: Start: 02-08-2018 Colonoscopy Kvng Tolbert MD Work Phone: Start: 02-07-2018 Colonoscopy Genna Maria [facility] Plan of Treatment Date Care Activity Detail Author Start: 09-08-2030 Urine microalbumin profile [facility] Start: 02-09-2028 Colonoscopy COLONOSCOPY [facility] Start: 02-09-2028 COLORECTAL CANCER SCREENING COLORECTAL CANCER SCREENING [facility] Start: 02-08-2028 Colonoscopy COLONOSCOPY [facility] Start: 02-08-2028 COLORECTAL CANCER SCREENING COLORECTAL CANCER SCREENING [facility] Start: 02-08-2028 Screening for malign ant neoplasm of colon [facility] Start: 12-29-2027 Lipid 1996 panel - S mariann or Plasma Lipid Screening [facility] Start: 12-29-2027 Lipid panel Lipid Screening [facility] Start: 12-29-2027 Prostate Cancer Scre ening Discussion Prostate Cancer Screening Discussion [facility] Start: 12-29-2027 Prostate specific an tigen measurement Prostate Cancer Screening Discussion [facility] Start: 06-21-2027 Lipid 1996 panel - S mariann or Plasma Lipid Screening [facility] Start: 06-21-2027 LIPID SCREEN LIPID SCREEN [facility] Start: 01-13-2027 LIPID SCREEN LIPID SCREEN [facility] Start: 04-16-2026 LIPID SCREEN LIPID SCREEN [facility] Start: 12-28-2025 Diabetes Screening Diabetes Screenin g [facility] Start: 06-20-2025 DIABETES SCREEN DIABETES SCREEN [facility] Start: 06-20-2025 Diabetes Screening Diabetes Screenin [facility] Start: 02-11-2025 PROSTATE CANCER SCRE ENING DISCUSSION PROSTATE CANCER SCREENING DISCUSSION [facility] Start: 01-13-2025 DIABETES SCREEN DIABETES SCREEN [facility] Start: 04-16-2024 DIABETES SCREEN DIABETES SCREEN [facility] Start: 12-29-2023 Hepatitis C Screening Hepatitis C Shane humphries [facility] Immunizations Immunization Date Immunization Notes Care Provider Hanna yeh 09-08-2020 tetanus and diphther ia toxoids, adsorbed, preservative free, for adult use (5 Lf of tetanus toxoid and 2 Lf of diphtheria toxoid) Tod Tolbert MD Work Phone: [facility] 12-11-2019 influenza, injectabl e, quadrivalent, contains preservative Tod Tolbert MD Work Phone: [facility] 12-11-2019 influenza virus vaccine, unspecified formulation Guzman Pack MD Work Phone: [facility] 06-22-2008 tetanus toxoid, redu tiffany diphtheria toxoid, and acellular pertussis vaccine, adsorbed Tod Tolbert MD Work Phone: [facility] Payers Date Payer Category Payer Unknown MMO MMO [employer] [id number] 2018-Present [phone] [address] [place] [address] O [id number] 2018 Unknown [id number] 2018 Unknown [id number] Unknown [id number] Social History Date Type Detail Facility Start: 11-07-2010 Tobacco smoking stat us PRIS Never smoked tobacco [facility] Start: 03-11-2021 End: 12-28-2022 Alcohol intake Current non-drinker of alcohol (finding) [facility] Start: 1955 Sex Assigned At Not on file [facility] Start: 05-01-2021 End: 12-28-2021 Exposure to SARS-CoV-2 (event) Not sure [facility] Start: 11-07-2010 Tobacco use and exposure Smokeless tobacco non-user [facility] Start: 12-16-2021 End: 12-26-2021 Exposure to SARS-CoV-2 (event) Unable to assess [facility] Work Phone: Start: 06-27-2022 End: 09-04-2022 History of Social function [facility] Work Phone: Start: 06-27-2022 End: 09-04-2022 Tobacco use panel [facility] Work Phone: Adult Depression Screening Assessment 0 [facility] Work Phone: Clinical Notes 06-18-2021 to 03-19-2023 Telephone Encounter - Dudley Schmitz [facility] - 03/19/2023 2:53 PM ESTTelephone Encounter - Keiry Robledo RN - 03/19/2023 2:41 PM ESTTelephone Encounter - Genna Maria [facility] - 02/06/2023 2:57 PM EST Note Date & Type Note Facility 03-19-2023 Miscellaneous Notes [facility] Ambulatory Pharmacy Anticoagulation Clinic Anticoagulation Episode Summary Anticoagulation Care Providers Provider Role Specialty Phone number Rajesh Tadeo MD Referring Family Medicine [phone] Corwin Paredes is a 67 year old year old male patient being evaluated today for a Telemanagement visit. Patient is currently on the following anticoagulant(s) Warfarin. Labs PT INR (no units) Date Value 11/28/2021 3.4 ([facility]) 04/16/2021 3.5 03/10/2021 3.7 INR (no units) Date Value 03/19/2023 5.2 02/28/2023 2.9 02/06/2023 2.9 CrCl cannot be calculated (Unknown ideal weight.). ALLERGIES Allergen Reactions Tzbvpxn-Azn-Nhd Red* Myalgia Indication for Warfarin: Anticoagulation Episode Summary Current INR goal: 3.0-4.0 Assessment: INR result of 5.2 is SUPRAtherapeutic due to: unknown cause - did not speak to patient Plan: Current Warfarin Dosing As of 03/19/2023 Full warfarin instructions: 03/19: Hold; Otherwise 5 mg every Fri; 10 mg all other days Left voice message Advised patient to hold 1 dose then continue current regimen Next INR check due on 03/29/2023 Patient instructed to call [facility] at [phone] with any questions or concerns. Dudley Schmitz [facility] Clinical Pharmacist, Pharmacy [facility]ticoagulation Clinic [facility] Pager: [phone] Received a page from lab client services (reference # [id number]) on March 19, 2023. PT INR (no units) Date Value 11/28/2021 3.4 ([facility]) 04/16/2021 3.5 03/10/2021 3.7 INR (no units) Date Value 03/19/2023 5.2 02/28/2023 2.9 02/06/2023 2.9 Johana Robledo RN [facility] documented in this encounter [facility] 02-28-2023 Miscellaneous Notes [facility] Ambulatory Pharmacy Anticoagulation Clinic Anticoagulation Episode Summary Anticoagulation Care Providers Provider Role Specialty Phone number Rajesh Tadeo MD Referring Family Medicine [phone] Corwin Paredes is a 67 year old year old male patient being evaluated today for a Telemanagement visit. Patient is currently on the following anticoagulant(s) Warfarin. Labs PT INR (no units) Date Value 11/28/2021 3.4 ([facility]) 04/16/2021 3.5 03/10/2021 3.7 INR (no units) Date Value 02/28/2023 2.9 02/06/2023 2.9 01/24/2023 3.2 Hemoglobin (g/dL) Date Value 02/12/2020 15.0 Hematocrit (%) Date Value 02/12/2020 46.7 Platelet Count (k/uL) Date Value 02/12/2020 259 Creatinine (mg/dL) Date Value 12/28/2022 1.17 06/20/2022 1.24 01/13/2022 1.10 04/16/2021 1.06 02/12/2020 1.14 11/26/2018 1.26 Bilirubin, Total (mg/dL) Date Value 12/28/2022 0.9 04/16/2021 0.6 ALT (U/L) Date Value 12/28/2022 33 04/16/2021 25 AST (U/L) Date Value 12/28/2022 33 04/16/2021 32 CrCl cannot be calculated (Unknown ideal weight.). ALLERGIES Allergen Reactions Czskmpe-Dsg-Zto Red* Myalgia Indication for Warfarin: salvage determiner current use of anticoagulant therapy Anticoagulation Episode Summary Current INR goal: 3.0-4.0 Assessment: INR result of 2.9 is SUBtherapeutic due to: unknown cause - did not speak to patient It seems like his INR has been running low. Plan: Current Warfarin Dosing As of 02/28/2023 Full warfarin instructions: 5 mg every Fri; 10 mg all other days Left voice message Advised patient to increase total weekly regimen Next lab INR check scheduled on or by 03/21/2023 Asked them to call to discuss the low result if able. Baylee Lancaster RP Clinical Pharmacist, Pharmacy [facility] Pager: [phone]. documented in this encounter [facility] 02-19-2023 Miscellaneous Notes Patient's request for medication is as follows: Requested Prescriptions Pending Prescriptions Disp Refills rosuvastatin (CRESTOR) 5 mg tablet [Pharmacy Med Name: ROSUVASTATIN CALCIUM 5 MG TAB] 12 tablet 11 Sig: TAKE 1 TABLET BY MOUTH THREE TIMES A WEEK. AFTER SUPPER OR BEDTIME SUNDAY, SUNDAY AND SUNDAY Last seen 09/04/2022 in [place]; next visit 05/14/2023. Prescription(s) as above. Please process accordingly. Kristin Shanks LPN documented in this encounter [facility] 02-06-2023 Miscellaneous Notes [facility] Ambulatory Pharmacy Anticoagulation Clinic Anticoagulation Episode Summary Anticoagulation Care Providers Provider Role Specialty Phone number Rajesh Tadeo MD Referring Family Medicine [phone] Corwin Paredes is a 67 year old year old male patient being evaluated today for a Lab INR. Patient is currently on the following anticoagulant(s) Warfarin. Labs PT INR (no units) Date Value 11/28/2021 3.4 ([facility]) 04/16/2021 3.5 03/10/2021 3.7 INR (no units) Date Value 02/06/2023 2.9 01/24/2023 3.2 01/22/2023 2.0 Hemoglobin (g/dL) Date Value 02/12/2020 15.0 Hematocrit (%) Date Value 02/12/2020 46.7 Platelet Count (k/uL) Date Value 02/12/2020 259 Creatinine (mg/dL) Date Value 12/28/2022 1.17 06/20/2022 1.24 01/13/2022 1.10 04/16/2021 1.06 02/12/2020 1.14 11/26/2018 1.26 Bilirubin, Total (mg/dL) Date Value 12/28/2022 0.9 04/16/2021 0.6 ALT (U/L) Date Value 12/28/2022 33 04/16/2021 25 AST (U/L) Date Value 12/28/2022 33 04/16/2021 32 CrCl cannot be calculated (Unknown ideal weight.). ALLERGIES Allergen Reactions Tmndcrq-Wmg-Fsb Red* Myalgia Indication for Warfarin: Anticoagulation Episode Summary Current INR goal: 3.0-4.0 Assessment: INR result of 2.9 is SUBtherapeutic due to: unknown cause - did not speak to patient Plan: Current Warfarin Dosing As of 02/06/2023 Full warfarin instructions: 02/06: 10 mg; Otherwise 5 mg every Tue, Fri; 10 mg all other days Left voice message 's phone Advised patient to increase dose for 1 day only then resume weekly regimen Next lab INR check scheduled on 02/27/2023 Genna Maria RPh Clinical Pharmacist, Pharmacy [facility] Pager: [phone]. documented in this encounter [facility] 01-25-2023 Miscellaneous Notes [facility] Ambulatory Pharmacy Anticoagulation Clinic Anticoagulation Episode Summary Anticoagulation Care Providers Provider Role Specialty Phone number Rajesh Tadeo MD Referring Family Medicine [phone] Corwin Paredes is a 67 year old year old male patient being evaluated today for a Lab INR. Patient is currently on the following anticoagulant(s) Warfarin. Labs PT INR (no units) Date Value 11/28/2021 3.4 ([facility]) 04/16/2021 3.5 03/10/2021 3.7 INR (no units) Date Value 01/24/2023 3.2 01/22/2023 2.0 12/28/2022 3.1 Hemoglobin (g/dL) Date Value 02/12/2020 15.0 Hematocrit (%) Date Value 02/12/2020 46.7 Platelet Count (k/uL) Date Value 02/12/2020 259 Creatinine (mg/dL) Date Value 12/28/2022 1.17 06/20/2022 1.24 01/13/2022 1.10 04/16/2021 1.06 02/12/2020 1.14 11/26/2018 1.26 Bilirubin, Total (mg/dL) Date Value 12/28/2022 0.9 04/16/2021 0.6 ALT (U/L) Date Value 12/28/2022 33 04/16/2021 25 AST (U/L) Date Value 12/28/2022 33 04/16/2021 32 CrCl cannot be calculated (Unknown ideal weight.). ALLERGIES Allergen Reactions Sabvhtx-Rgo-Lnd Red* Myalgia Indication for Warfarin: salvage determiner current use of anticoagulant therapy Anticoagulation Episode Summary Current INR goal: 3.0-4.0 Assessment: INR result of 3.2 is therapeutic Plan: Current Warfarin Dosing As of 01/24/2023 Full warfarin instructions: 01/24: 10 mg; Otherwise 5 mg every Tue, Fri; 10 mg all other days Called and spoke to patient/caregiver Advised patient to continue current weekly dose as noted above Pt advised to STOP LOVENOX. Pt denies any s/sx of excessive bleeding, bruising, tenderness, inflammation, etc with use of lovenox injections. Next lab INR check scheduled on 02/07/2023 Patient's caregiver verbalizes understanding of the plan. Patient denies need for refills. Yolette Teague RPh Clinical Pharmacist, Pharmacy Anticoagulation Clinic [facility] Pager: [phone]. [facility] Ambulatory Pharmacy Anticoagulation Clinic Anticoagulation Episode Summary Anticoagulation Care Providers Provider Role Specialty Phone number Rajesh Tadeo MD Referring Family Medicine [phone] Corwin Paredes is a 67 year old year old male patient being evaluated today for a Telemanagement visit. Patient is currently on the following anticoagulant(s) Warfarin and Enoxaparin. Labs PT INR (no units) Date Value 11/28/2021 3.4 ([facility]) 04/16/2021 3.5 03/10/2021 3.7 INR (no units) Date Value 01/24/2023 3.2 01/22/2023 2.0 12/28/2022 3.1 Hemoglobin (g/dL) Date Value 02/12/2020 15.0 Hematocrit (%) Date Value 02/12/2020 46.7 Platelet Count (k/uL) Date Value 02/12/2020 259 Creatinine (mg/dL) Date Value 12/28/2022 1.17 06/20/2022 1.24 01/13/2022 1.10 04/16/2021 1.06 02/12/2020 1.14 11/26/2018 1.26 Bilirubin, Total (mg/dL) Date Value 12/28/2022 0.9 04/16/2021 0.6 ALT (U/L) Date Value 12/28/2022 33 04/16/2021 25 AST (U/L) Date Value 12/28/2022 33 04/16/2021 32 CrCl cannot be calculated (Unknown ideal weight.). ALLERGIES Allergen Reactions Dgsxguz-Pst-Srz Red* Myalgia Indication for Warfarin: group home current use of anticoagulant therapy Anticoagulation Episode Summary Current INR goal: 3.0-4.0 Assessment: INR result of 3.2 is therapeutic and did rise quite a bit in 2 days. Indication for parenteral anticoagulant: Post - (Name of procedure) prostate biopsy on 01/16 Parenteral anticoagulant supply: didn't ask how many injections Is hgb, hct, plt stable?: Not assessed Plan: Current Warfarin Dosing As of 01/24/2023 Full warfarin instructions: 01/24: 10 mg Left voice message Advised patient to take his normal dose of 10mg today and can probably resume his normal dose. Parenteral anticoagulant dose to take: stop Asked him to call back to discuss. Next Action for Anticoag Management: TM continue to test Baylee Lancaster RPh Clinical Pharmacist, Pharmacy Anticoagulation Clinic [facility] Pager: [phone] . documented in this encounter [facility] 01-22-2023 Miscellaneous Notes [facility] Ambulatory Pharmacy Anticoagulation Clinic Anticoagulation Episode Summary Anticoagulation Care Providers Provider Role Specialty Phone number Rajesh Tadeo MD Referring Family Medicine [phone] Corwin Paredes is a 67 year old year old male patient being evaluated today for a Telemanagement visit. Patient is currently on the following anticoagulant(s) Warfarin. Labs PT INR (no units) Date Value 11/28/2021 3.4 ([facility]) 04/16/2021 3.5 03/10/2021 3.7 INR (no units) Date Value 01/22/2023 2.0 12/28/2022 3.1 12/01/2022 3.1 CrCl cannot be calculated (Unknown ideal weight.). ALLERGIES Allergen Reactions Zyiatef-Gkn-Fpk Red* Myalgia Indication for Warfarin: Anticoagulation Episode Summary Current INR goal: 3.0-4.0 Assessment: INR result of 2.0 is SUBtherapeutic due to: Re-titration post-procedure Plan: Current Warfarin Dosing As of 01/22/2023 Full warfarin instructions: 01/22: 15 mg; 01/23: 15 mg Left voice message Advised patient to continue Lovenox 100 mg q12h, and take warfarin 15 mg today & tomorrow. Next INR check due on 01/24/2023 Patient instructed to call [facility] at [phone] with any questions or concerns. Dudley Schmitz RP Clinical Pharmacist, Pharmacy Anticoagulation Clinic Pharm[facility] Pager: [phone] documented in this encounter [facility] 01-17-2023 Miscellaneous Notes Addended by: RON EDWARDS on: 01/17/2023 10:46 AM Modules accepted: Orders Spoke to spouse. Patient had prostate biopsy yesterday, held warfarin 5 days prior and was prescribed Lovenox bridge by PCP. Patient and spouse wanted consulted on post-procedure dosing and follow up. Patient advised to take warfarin 15 mg Weds/ 10 mg all other days along with Lovenox 100 mg sq Q 12 hours. F/U lab appt scheduled for 01/22/23 Rx was requested for warfarin 10 mg tablets. The following approved medication requests have been transmitted electronically. Requested Prescriptions Signed Prescriptions Disp Refills warfarin (COUMADIN) 10 mg tablet 90 tablet 2 Sig: TAKE 10 MG DAILY EXCEPT 5 MG ON SUNDAY & FRIDAYS DIRECTED BY ANTICOAGULATION CLINIC Authorizing Provider: RAJESH TADEO Ordering User: RON EDWARDS Class: Normal Notes to Pharmacy: Call [phone] for additional questions. Ron Edwards, PharmD. Order: [id number] E-Prescribing Status: Receipt confirmed by pharmacy (01/17/2023 10:45 AM EDT) Jacoby Conn PharmD., CACP Patient's called requesting a return call from the pharmacist regarding dosing. [phone] documented in this encounter [facility] 01-16-2023 Miscellaneous Notes Patient's request for medication is as follows: Requested Prescriptions Pending Prescriptions Disp Refills ezetimibe (ZETIA) 10 mg tablet [Pharmacy Med Name: EZETIMIBE 10 MG TABLET] 30 tablet 11 Sig: take 1 tablet by mouth every day Prescription(s) as above. Please process accordingly. Micheal Castellano LPN documented in this encounter [facility] 01-15-2023 Miscellaneous Notes Letter mailed to pt home of results. Mini Garcia MA Please notify patient that his lab results all look good; stay on the same medications and follow up in 6 months as planned Rajesh Tadeo MD documented in this encounter [facility] 12-28-2022 Miscellaneous Notes [facility] Ambulatory Pharmacy Anticoagulation Clinic Anticoagulation Episode Summary Anticoagulation Care Providers Provider Role Specialty Phone number Rajesh Tadeo MD Referring Family Medicine [phone] Corwin Paredes is a 67 year old year old male patient being evaluated today for a Lab INR. Patient is currently on the following anticoagulant(s) Warfarin. Labs PT INR (no units) Date Value 11/28/2021 3.4 ([facility]) 04/16/2021 3.5 03/10/2021 3.7 INR (no units) Date Value 12/28/2022 3.1 12/01/2022 3.1 10/18/2022 3.7 Hemoglobin (g/dL) Date Value 02/12/2020 15.0 Hematocrit (%) Date Value 02/12/2020 46.7 Platelet Count (k/uL) Date Value 02/12/2020 259 Creatinine (mg/dL) Date Value 06/20/2022 1.24 01/13/2022 1.10 04/16/2021 1.06 02/12/2020 1.14 11/26/2018 1.26 Bilirubin, Total (mg/dL) Date Value 06/20/2022 0.9 04/16/2021 0.6 ALT (U/L) Date Value 06/20/2022 27 04/16/2021 25 AST (U/L) Date Value 06/20/2022 27 04/16/2021 32 CrCl cannot be calculated (Patient's most recent lab result is older than the maximum 180 days allowed.). ALLERGIES Allergen Reactions Bafukxd-Vzb-Jtz Red* Myalgia Indication for Warfarin: Anticoagulation Episode Summary Current INR goal: 3.0-4.0 Assessment: INR result of 3.1 is therapeutic Plan: Current Warfarin Dosing As of 12/28/2022 Full warfarin instructions: 5 mg every Tue, Fri; 10 mg all other days Left voice message Advised patient to continue current weekly dose as noted above Next lab INR check scheduled on 01/25/2023 Genna Maria RPh Clinical Pharmacist, Pharmacy Anticoagulation Clinic Pharmacy Anticoagulation Clinic Pager: [phone]. documented in this encounter [facility] 12-28-2022 Note HNO ID: [id number] Author: Rajesh Tadeo MD Service: ? Author Type: Physician Type: Progress Notes Filed: 12/28/2022 10:52 AM Note Text: Chief Complaint Patient presents with: F/U 6 Month HPI Corwin Librado Paredes is a 67 year old male who presents here today for a 6 month follow up. Pt here today for a 6 month follow up. Here today with his . Busy with grandkids, ages 5, 2 and one recent born in September. GI/Uro - Denies any stomach or bowel issues. Hx of diverticulitis. No present urinary issues, denies nocturia. Hx of elevated PSA. Currently on no medication. Has routine labs to monitor PSA, scheduled to have biopsy on prostate on 01/16/[address] Pleitez. Had an MRI that showed something concerning is why they are wanting to complete a biopsy. Had this done a few years ago. Not looking forward to going through this. GERD - Stable will occasionally use Tums, which alleviate symptoms. Previously used Prilosec, that was started by ENT. States medication affected his INR in the past. Lipids - Admits to not watching his diet. Does a little bit of exercise. Stable on current regimen of Crestor 5 mg once daily three days a week. Afib/Aortic Valve replacement - Pt s/p valve replacement. Follows with Cardio, Dr. Pack. INR managed by Pharmacist, takes Coumadin daily. Denies any chest pain, sob or dizziness. Able to do all the activity he wants to do . Asking about his INR and levels with surgery; orders have been sent in to bridge with Lovenox. HM - Declines Hep C screening. Declines having Adv Dir/Living Will. Declines Flu and Pneumo shot. Past medical history, appointments, medications, allergies reviewed. 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 0 hearing in left ear, 25% in right Elevated PSA 10/20/2010 Dr. Pleitez S/P AVR [address] Osei. INR 3-4 Sigmoid diverticulitis Venous insufficiency of leg 08/01/2012 Previous Surgical History PAST SURGICAL HISTORY Procedure Laterality Date COLONOSCOPY 02/08/2018 done at [facility] with MAC by Dr. Blake Dillon L'SCOPE CHOLECYSTECTOMY N/A [facility]--Reba Dillon PERCUTANEOUS AORTIC VALVE REPLACEMENT Family History FAMILY HISTORY Problem Relation Age of Onset Heart disease Mother Parkinson?s Disease Father Prostate Cancer Brother Heart Attack Paternal Uncle No Known Problems Son No Known Problems Son Patient Allergies ALLERGIES Allergen Reactions Smhunfm-Xfa-Gwx Red* Myalgia Current Medications Current Outpatient Medications on File Prior to Visit Medication Sig enoxaparin (LOVENOX) 100 mg/mL syrg Inject 1 mL subcutaneously every 12 hours. Start 3 days prior to surgery, take last dose 24 hours before surgery. Resume 24 hours after surgery, and continue until INR is above 2.0 warfarin (COUMADIN) 10 mg tablet TAKE 10 MG DAILY EXCEPT 5 MG ON SUNDAY AND FRIDAYS DIRECTED BY ANTICOAGULATION CLINIC ezetimibe (ZETIA) 10 mg tablet Take 1 tablet by mouth once daily. rosuvastatin (CRESTOR) 5 mg tablet Take 1 tablet by mouth three times a week. After supper or bedtime Sunday, Sunday and Sunday acetaminophen (TYLENOL 8 HOUR ORAL) Take by mouth. Current Facility-Administered Medications on File Prior to Visit Medication perflutren lipid microspheres 1.3 mL in NaCl (PF) 0.9% 10 mL injection (DEFINITY) sodium chloride 0.9 % (flush) 10 mL (BD POSIFLUSH) Social History Social History Tobacco Use Smoking status: Never Smokeless tobacco: Never Vaping Use Vaping Use: Never used Substance Use Topics Alcohol use: No Drug use: No EXAM: BP 126/80 (BP Site: Left Arm, BP Position: Sitting, BP Cuff Size: Regular Adult) Pulse 68 Resp 16 Wt 98.4 kg (217 lb) BMI 29.88 kg/m? General Appearance: Well appearing, alert, in no acute distress, well-hydrated, well nourished.. Lungs: Lungs clear to auscultation. No wheezing, rhonchi, rales.. Heart: RRR without murmur, gallop, or rubs. No ectopy. Health Maintenance List Hepatitis C Screening Never done Shingrix Vaccine(1 of 2) Never done Pneumococcal Vaccine: 65+(1 - PCV) Never done Advance Directive Discussion Never done Influenza Vaccine(1) due on 12/01/2022 Covid-19 Vaccine(1) due on 12/28/2022 Prostate Cancer Screening Discussion due on 02/11/2025 Diabetes Screening due on 06/20/2025 Lipid Screening due on 06/21/2027 Colorectal Cancer Screening due on 02/08/2028 DTaP,Tdap,Td Vaccine(3 - Td or Tdap) due on 09/08/2030 Depression Assessment Completed Data reviewed External labs ASSESSMENT/PLAN: 1. Atrial fibrillation, unspecified type (HCC) - ICD9: 427.31, ICD10: I48.91 (primary diagnosis) - Continue current medication regimen. 2. History of aortic valve replacement - ICD9: V43.3, ICD10: Z95.2 - Cont f/u with Cardio - Continue current medication regimen. 3. Other hype (more content not included)... [facility] 12-21-2022 Miscellaneous Notes Patient's calls and notified of Coumadin, Lovenox, and INR instructions voices understanding. reads back instructions. Debbi Eugene RN Keep chart open, waiting for pt to return call to be notified of med instructions. Suzan from Dr Pleitez's office was notified that med was sent to pharmacy & instructions were given. Amirah Giraldo LPN Left vm on patient's vm and also Suzan/nurse vm to return call to nurse for provider's message. Lovenox ordered. He should stop coumadin 5 days prior to surgery, and start Lovenox three days before surgery. Resume both Lovenox and his normal coumadin dose the day after surgery, and get INR checked three days later. Rajesh Tadeo MD Suzan from Dr. Pleitez's office @ [facility] calling. States that pt. is having a prostate biopsy on 01-16-23. Dr. Pleitez requesting that pt. be on a Lovenox bridge as pt is currently taking Coumadin for valve replacement. Please advise, call in Lovenox to pharmacy and notify pt of instructions for use. Please also notify Dr. Pleitez's office when this is complete at [phone] (option 3 for nurses desk) Mary Evans RN documented in this encounter [facility] 12-01-2022 Miscellaneous Notes [facility] Ambulatory Pharmacy Anticoagulation Clinic Anticoagulation Episode Summary Anticoagulation Care Providers Provider Role Specialty Phone number Rajesh Tadeo MD Referring Family Medicine [phone] Corwin Paredes is a 67 year old year old male patient being evaluated today for a Lab INR. Patient is currently on the following anticoagulant(s) Warfarin. Labs PT INR (no units) Date Value 11/28/2021 3.4 ([facility]) 04/16/2021 3.5 03/10/2021 3.7 INR (no units) Date Value 12/01/2022 3.1 10/18/2022 3.7 09/20/2022 4.2 Hemoglobin (g/dL) Date Value 02/12/2020 15.0 Hematocrit (%) Date Value 02/12/2020 46.7 Platelet Count (k/uL) Date Value 02/12/2020 259 Creatinine (mg/dL) Date Value 06/20/2022 1.24 01/13/2022 1.10 04/16/2021 1.06 02/12/2020 1.14 11/26/2018 1.26 Bilirubin, Total (mg/dL) Date Value 06/20/2022 0.9 04/16/2021 0.6 ALT (U/L) Date Value 06/20/2022 27 04/16/2021 25 AST (U/L) Date Value 06/20/2022 27 04/16/2021 32 CrCl cannot be calculated (Unknown ideal weight.). ALLERGIES Allergen Reactions Kfwdswy-Mhf-Uop Red* Myalgia Indication for Warfarin: salvage determiner current use of anticoagulant therapy Anticoagulation Episode Summary Current INR goal: 3.0-4.0 Assessment: INR result of 3.1 is therapeutic Plan: Current Warfarin Dosing As of 12/01/2022 Full warfarin instructions: 5 mg every Tue, Fri; 10 mg all other days Called and spoke to patient/caregiver Advised patient to continue current weekly dose as noted above Next lab INR check scheduled on 12/28/2022 Patient's caregiver verbalizes understanding of the plan. Patient denies need for refills. Ron Edwards RPh Clinical Pharmacist, Pharmacy Anticoagulation Clinic Pharmacy Anticoagulation Clinic Pager: [phone]. documented in this encounter [facility] 11-23-2022 Miscellaneous Notes Patient due to test INR today. Will continue to monitor for results. Den West RPh documented in this encounter [facility] 10-19-2022 Miscellaneous Notes The following approved medication requests have been transmitted electronically. Requested Prescriptions Signed Prescriptions Disp Refills warfarin (COUMADIN) 10 mg tablet 90 tablet 2 Sig: TAKE 10 MG DAILY EXCEPT 5 MG ON SUNDAY & FRIDAYS DIRECTED BY ANTICOAGULATION CLINIC Authorizing Provider: RAJESH TADEO Ordering User: RON EDWARDS Class: Normal Notes to Pharmacy: Call [phone] for additional questions. Ron Edwards, PharmD. Order: [id number] E-Prescribing Status: Receipt confirmed by pharmacy (10/19/2022 8:38 AM EDT) Ron Edwards RPh documented in this encounter [facility] 10-19-2022 Miscellaneous Notes [facility] Ambulatory Pharmacy Anticoagulation Clinic Anticoagulation Episode Summary Anticoagulation Care Providers Provider Role Specialty Phone number Rajesh Tadeo MD Referring Family Medicine [phone] Corwin Paredes is a 66 year old year old male patient being evaluated today for a Lab INR. Patient is currently on the following anticoagulant(s) Warfarin. Labs PT INR (no units) Date Value 11/28/2021 3.4 ([facility]) 04/16/2021 3.5 03/10/2021 3.7 INR (no units) Date Value 10/18/2022 3.7 09/20/2022 4.2 08/22/2022 4.1 Hemoglobin (g/dL) Date Value 02/12/2020 15.0 Hematocrit (%) Date Value 02/12/2020 46.7 Platelet Count (k/uL) Date Value 02/12/2020 259 Creatinine (mg/dL) Date Value 06/20/2022 1.24 01/13/2022 1.10 04/16/2021 1.06 02/12/2020 1.14 11/26/2018 1.26 Bilirubin, Total (mg/dL) Date Value 06/20/2022 0.9 04/16/2021 0.6 ALT (U/L) Date Value 06/20/2022 27 04/16/2021 25 AST (U/L) Date Value 06/20/2022 27 04/16/2021 32 CrCl cannot be calculated (Unknown ideal weight.). ALLERGIES Allergen Reactions Ryriisk-Quj-Yid Red* Myalgia Indication for Warfarin: salvage determiner current use of anticoagulant therapy Anticoagulation Episode Summary Current INR goal: 3.0-4.0 Assessment: INR result of 3.7 is therapeutic Plan: Current Warfarin Dosing As of 10/19/2022 Full warfarin instructions: 5 mg every Tue, Fri; 10 mg all other days Called and spoke to patient/caregiver Advised patient to continue current weekly dose as noted above Next lab INR check scheduled on 11/23/2022 Patient's spouse verbalizes understanding of the plan. Patient requests need for refills. Ron Edwards RPh Clinical Pharmacist, Pharmacy Anticoagulation Clinic Pharmacy Anticoagulation Clinic Pager: [phone]. documented in this encounter [facility] 09-21-2022 Miscellaneous Notes [facility] Ambulatory Pharmacy Anticoagulation Clinic Anticoagulation Episode Summary Anticoagulation Care Providers Provider Role Specialty Phone number Rajesh Tadeo MD Referring Family Medicine [phone] Corwin Paredes is a 66 year old year old male patient being evaluated today for a Lab INR. Patient is currently on the following anticoagulant(s) Warfarin. Labs PT INR (no units) Date Value 11/28/2021 3.4 ([facility]) 04/16/2021 3.5 03/10/2021 3.7 INR (no units) Date Value 09/20/2022 4.2 08/22/2022 4.1 07/20/2022 3.3 Hemoglobin (g/dL) Date Value 02/12/2020 15.0 Hematocrit (%) Date Value 02/12/2020 46.7 Platelet Count (k/uL) Date Value 02/12/2020 259 Creatinine (mg/dL) Date Value 06/20/2022 1.24 01/13/2022 1.10 04/16/2021 1.06 02/12/2020 1.14 11/26/2018 1.26 Bilirubin, Total (mg/dL) Date Value 06/20/2022 0.9 04/16/2021 0.6 ALT (U/L) Date Value 06/20/2022 27 04/16/2021 25 AST (U/L) Date Value 06/20/2022 27 04/16/2021 32 CrCl cannot be calculated (Unknown ideal weight.). ALLERGIES Allergen Reactions Mbxnieq-Dzo-Adf Red* Myalgia Indication for Warfarin: salvage determiner current use of anticoagulant therapy Anticoagulation Episode Summary Current INR goal: 3.0-4.0 Assessment: INR result of 4.2 is SUPRAtherapeutic due to: Decreased vitamin k intake and No obvious cause Plan: Current Warfarin Dosing As of 09/21/2022 Full warfarin instructions: 09/21: 5 mg; Otherwise 5 mg every e, Sun; 10 mg all other days Called and spoke to patient/caregiver Advised patient to decrease dose for 1 day and decrease total weekly regimen Next lab INR check scheduled on 10/11/2022 Patient's spouse verbalizes understanding of the plan. Patient denies need for refills. Ron Edwards RPh Clinical Pharmacist, Pharmacy Anticoagulation Clinic Pharmacy Anticoagulation Clinic Pager: [phone]. documented in this encounter [facility] 09-04-2022 Note HNO ID: [id number] Author: Guzman Pack MD Service: ? Author Type: Physician Type: Progress Notes Filed: 09/04/2022 10:04 AM Note Text: [facility] Cardiology ([address]) [address] [facility] [id number] OUTPATIENT VISIT DATE 08/30/2022 PRIMARY CARE PHYSICIAN: Rajesh Tadeo [address] [place] [address] HISTORY OF PRESENT ILLNESS: Mr. Paredes is a 66 year old gentleman with a history of mechanical aortic valve replacement and aortic root repair [address] [place] [address], hypertension, dyslipidemia who presents for routine follow-up. He continues to do extremely well from a functional standpoint. He has had no symptoms of chest pain or pressure. He denies symptoms of palpitations, lightheadedness, dizziness, or syncope. PAST CARDIAC HISTORY: Corwin Paredes is a 66 year old male who presents for cardiology evaluation. He has a PMhx of HTN, HLD, AVR ([employer]. Kris mechanical valve by Dr. Rosenberg [facility] 1989, on coumadin), PAF (postoperatively). 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 0 hearing in left ear, 25% in right Elevated PSA 10/20/2010 Dr. Pleitez S/P AVR [address] Osei. INR 3-4 Sigmoid diverticulitis Venous insufficiency of leg 08/01/2012 PAST SURGICAL HISTORY Procedure Laterality Date COLONOSCOPY 02/08/2018 done at [facility] with MAC by Dr. Blake Dillon L'SCOPE CHOLECYSTECTOMY N/A [facility]--[facility] Dillon PERCUTANEOUS AORTIC VALVE REPLACEMENT SOCIAL HISTORY Social History Tobacco Use Smoking status: Never Smokeless tobacco: Never Vaping Use Vaping Use: Never used Substance Use Topics Alcohol use: No Drug use: No FAMILY HISTORY Problem Relation Age of Onset Heart disease Mother Parkinson?s Disease Father Prostate Cancer Brother Heart Attack Paternal Uncle No Known Problems Son No Known Problems Son ALLERGIES: ALLERGIES Allergen Reactions Xmixqtf-Ohr-Kpf Red* Myalgia MEDICATIONS: warfarin (COUMADIN) 10 mg tabletTAKE 10 MG DAILY EXCEPT 5 MG ON Sunday OR DIRECTED BY ANTICOAGULATION CLINICDisp: 30 tabletRfl: 1 ezetimibe (ZETIA) 10 mg tabletTake 1 tablet by mouth once daily.Disp: 90 tabletRfl: 3 rosuvastatin (CRESTOR) 5 mg tabletTake 1 tablet by mouth three times a week. After supper or bedtime Sunday, Sunday and SundayDisp: 36 tabletRfl: 3 acetaminophen (TYLENOL 8 HOUR ORAL)Take by mouth.Disp: Rfl: REVIEW OF SYSTEMS: Review of Systems Constitutional: Negative for chills, fever, malaise/fatigue and weight loss. HENT: Negative for hearing loss and sore throat. Eyes: Negative for blurred vision and double vision. Respiratory: Negative. Cardiovascular: Negative. Gastrointestinal: Negative. Genitourinary: Negative for dysuria, frequency, hematuria and urgency. Musculoskeletal: Negative. Skin: Negative. Neurological: Negative for dizziness, seizures, loss of consciousness, weakness and headaches. Endo/Heme/Allergies: Negative for environmental allergies. Does not bruise/bleed easily. Psychiatric/Behavioral: Negative for depression. PHYSICAL EXAMINATION: BP 132/86 Pulse 65 Wt 220 lb 9.6 oz (100.1kg) SpO2 98% General: Fit appearing gentleman sitting appears comfortable no apparent distress he is alert and oriented x3 HEENT: Carotid upstrokes are brisk bilateral without bruits no JVD appreciated. Pulmonary: Lungs are clear no rales, wheezes, rhonchi Cardiovascular: Normal S1, S2 with crisp mechanical aortic valve sounds. Extremities: Warm, well-perfused, no lower extremity edema. 2+ distal pulses CARDIOVASCULAR MEDICINE TESTING: Echocardiogram 02/27/2022: CONCLUSIONS: - Technically difficult exam due to body habitus. - Exam indication: Routine surveillance of prosthetic valve (>3yrs) - The left ventricle is normal in size. There is mild concentric left ventricular hypertrophy. Left ventricular systolic function is normal. EF = 58 ? 5% (2D 4-ch.) Grade I left ventricular diastolic dysfunction. - The right ventricle is normal in size. Right ventricular systolic function is normal. - The visualized aorta is dilated with a maximal dimension of 4.3 cm. - St. Kris prosthetic aortic valve (size #23). There is trace aortic valve regurgitation. The peak gradient is 39 mmHg, the mean gradient is 21 mmHg and the dimensionless valve index is 0.25. Prior pk/mn gradients of 38/23 mmHg. IMPRESSION: Mr. Paredes is a 66 year old gentleman with a remote history of mechanical [place] aortic valve replacement and aortic root repair 1989, hypertension, dyslipidemia who presents for routine follow-up. PLAN AND RECOMMENDATIONS: 1. History of aortic valve replacement - ICD9: V43.3, ICD10: Z95.2 (primary diagnosis) (more content not included)... [facility] 09-04-2022 History of Presen t illness Narrative Images from the original note were not included. [facility] Cardiology ([address]) [address] [facility] [id number] OUTPATIENT VISIT DATE 08/30/2022 PRIMARY CARE PHYSICIAN: Rajesh Tadeo [address] [place] [address] HISTORY OF PRESENT ILLNESS: Mr. Paredes is a 66 year old gentleman with a history of mechanical aortic valve replacement and aortic root repair 1989 [facility], hypertension, dyslipidemia who presents for routine follow-up. He continues to do extremely well from a functional standpoint. He has had no symptoms of chest pain or pressure. He denies symptoms of palpitations, lightheadedness, dizziness, or syncope. PAST CARDIAC HISTORY: Corwin Paredes is a 66 year old male who presents for cardiology evaluation. He has a PMhx of HTN, HLD, AVR (St. Kris mechanical valve by Dr. Rosenberg [facility] 1989, on coumadin), PAF (postoperatively). 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 0 hearing in left ear, 25% in right Elevated PSA 10/20/2010 Dr. Pleitez S/P AVR [address] Osei. INR 3-4 Sigmoid diverticulitis Venous insufficiency of leg 08/01/2012 PAST SURGICAL HISTORY Procedure Laterality Date COLONOSCOPY 02/08/2018 done at [facility] with MAC by Dr. Blake Dillon L'SCOPE CHOLECYSTECTOMY N/A [facility]--Reba Dillon PERCUTANEOUS AORTIC VALVE REPLACEMENT SOCIAL HISTORY Social History Tobacco Use Smoking status: Never Smokeless tobacco: Never Vaping Use Vaping Use: Never used Substance Use Topics Alcohol use: No Drug use: No FAMILY HISTORY Problem Relation Age of Onset Heart disease Mother Parkinson s Disease Father Prostate Cancer Brother Heart Attack Paternal Uncle No Known Problems Son No Known Problems Son ALLERGIES: ALLERGIES Allergen Reactions Cntasqg-Aih-Pxd Red* Myalgia MEDICATIONS: warfarin (COUMADIN) 10 mg tablet^TAKE 10 MG DAILY EXCEPT 5 MG ON Sunday OR DIRECTED BY ANTICOAGULATION CLINIC^Disp: 30 tablet^Rfl: 1 ezetimibe (ZETIA) 10 mg tablet^Take 1 tablet by mouth once daily.^Disp: 90 tablet^Rfl: 3 rosuvastatin (CRESTOR) 5 mg tablet^Take 1 tablet by mouth three times a week. After supper or bedtime Sunday, Sunday and Sunday^Disp: 36 tablet^Rfl: 3 acetaminophen (TYLENOL 8 HOUR ORAL)^Take by mouth.^Disp: ^Rfl: REVIEW OF SYSTEMS: Review of Systems Constitutional: Negative for chills, fever, malaise/fatigue and weight loss. HENT: Negative for hearing loss and sore throat. Eyes: Negative for blurred vision and double vision. Respiratory: Negative. Cardiovascular: Negative. Gastrointestinal: Negative. Genitourinary: Negative for dysuria, frequency, hematuria and urgency. Musculoskeletal: Negative. Skin: Negative. Neurological: Negative for dizziness, seizures, loss of consciousness, weakness and headaches. Endo/Heme/Allergies: Negative for environmental allergies. Does not bruise/bleed easily. Psychiatric/Behavioral: Negative for depression. PHYSICAL EXAMINATION: BP 132/86 Pulse 65 Wt 220 lb 9.6 oz (100.1kg) SpO2 98% General: Fit appearing gentleman sitting appears comfortable no apparent distress he is alert and oriented x3 HEENT: Carotid upstrokes are brisk bilateral without bruits no JVD appreciated. Pulmonary: Lungs are clear no rales, wheezes, rhonchi Cardiovascular: Normal S1, S2 with crisp mechanical aortic valve sounds. Extremities: Warm, well-perfused, no lower extremity edema. 2+ distal pulses CARDIOVASCULAR MEDICINE TESTING: Echocardiogram 02/27/2022: CONCLUSIONS: - Technically difficult exam due to body habitus. - Exam indication: Routine surveillance of prosthetic valve (>3yrs) - The left ventricle is normal in size. There is mild concentric left ventricular hypertrophy. Left ventricular systolic function is normal. EF = 58 5% (2D 4-ch.) Grade I left ventricular diastolic dysfunction. - The right ventricle is normal in size. Right ventricular systolic function is normal. - The visualized aorta is dilated with a maximal dimension of 4.3 cm. - St. Kris prosthetic aortic valve (size #23). There is trace aortic valve regurgitation. The peak gradient is 39 mmHg, the mean gradient is 21 mmHg and the dimensionless valve index is 0.25. Prior pk/mn gradients of 38/23 mmHg. IMPRESSION: Mr. Paredes is a 66 year old gentleman with a remote history of mechanical [place] Kris aortic valve replacement and aortic root repair 1989, hypertension, dyslipidemia who presents for routine follow-up. PLAN AND RECOMMENDATIONS: 1. History of aortic valve replacement - ICD9: V43.3, ICD10: Z95.2 (primary diagnosis) Echocardiogram from January 2022 was reviewed. Well-functioning mechanical aortic valve. I discussed the need to keep blood pressure on the low side to help increase the longevity of the valve. I have asked him to check his blood pressure 2 or 3 times a month for review at next office visit. Patient maintained on Coumadin therapy. He should be on antibiotic prophylaxis for procedures. 2. Other hyperlipidemia - ICD9: 272.4, ICD10: E78.49 Maintained on Crestor 5 mg/Zetia 10 mg once daily. Blood work from May 2022 was reviewed. LDL cholesterol 87 mg/dL. Guzman Pack MD documented in this encounter [facility] 07-21-2022 Miscellaneous Notes [facility] Ambulatory Pharmacy Anticoagulation Clinic Anticoagulation Episode Summary Anticoagulation Care Providers Provider Role Specialty Phone number Rajesh Tadeo MD Referring Family Medicine [phone] Corwin Paredes is a 66 year old year old male patient being evaluated today for a Telemanagement visit. Patient is currently on the following anticoagulant(s) Warfarin. Labs PT INR (no units) Date Value 11/28/2021 3.4 ([facility]) 04/16/2021 3.5 03/10/2021 3.7 INR (no units) Date Value 07/20/2022 3.3 06/20/2022 4.1 05/19/2022 3.9 Hemoglobin (g/dL) Date Value 02/12/2020 15.0 Hematocrit (%) Date Value 02/12/2020 46.7 Platelet Count (k/uL) Date Value 02/12/2020 259 Creatinine (mg/dL) Date Value 06/20/2022 1.24 01/13/2022 1.10 04/16/2021 1.06 02/12/2020 1.14 11/26/2018 1.26 Bilirubin, Total (mg/dL) Date Value 06/20/2022 0.9 04/16/2021 0.6 ALT (U/L) Date Value 06/20/2022 27 04/16/2021 25 AST (U/L) Date Value 06/20/2022 27 04/16/2021 32 CrCl cannot be calculated (Unknown ideal weight.). ALLERGIES Allergen Reactions Avpuyux-Poy-Jfo Red* Myalgia Indication for Warfarin: Atrial fibrillation, unspecified type (hcc) salvage determiner current use of anticoagulant therapy Anticoagulation Episode Summary Current INR goal: 3.0-4.0 Assessment: INR result of 3.3 is therapeutic Plan: Current Warfarin Dosing As of 07/21/2022 Full warfarin instructions: 5 mg every Fri; 10 mg all other days Left voice message Advised patient to continue current weekly dose as noted above Next lab INR check scheduled on 08/25/2022 Phyllis Friedman RPh Clinical Pharmacist, Pharmacy Anticoagulation Clinic Pharmacy Anticoagulation Clinic Pager: [phone]. documented in this encounter [facility] 07-19-2022 Miscellaneous Notes Noted - thank you. The previous INR order 10/17/26 so I am unsure what happened but another standing order was placed today regardless. We will reach out once the results return. Baylee Lancaster PharmD, [facility] Pharmacy Anticoagulation Clinic Spoke with patient's spouse who advised the patient was told by the lab there were no lab orders. Advised there were 94 left but placed a new order. Instructed to page PAC if this occurs again. Patient voiced understanding and was appreciate for return call. Patient will go back to the lab on 07/20. PT INR (no units) Date Value 11/28/2021 3.4 ([facility]) 04/16/2021 3.5 03/10/2021 3.7 INR (no units) Date Value 06/20/2022 4.1 05/19/2022 3.9 05/04/2022 5.0 Johana Robledo RN Pharmacy Anticoagulation Clinic documented in this encounter [facility] 07-19-2022 Miscellaneous Notes Order signed. Thank you. Spouse (Racquel) calls to report that patient needs a new standing order for his INR to be drawn. She reports he got a call from the Anticoagulation Clinic and when he came in wasn't able to get order completed. INR order on 07/18/2022. Pended with diagnosis and special instructions. Needs Interval and Count. Please call Racquel back once order is placed at [phone]. Also forwarded to Dudley Schmitz [facility]. Please review and advise, Suze Moya RN documented in this encounter [facility] 06-27-2022 Note HNO ID: [id number] Author: Rajesh Tadeo MD Service: ? Author Type: Physician Type: Progress Notes Filed: 06/27/2022 10:58 AM Note Text: Chief Complaint Patient presents with: 6 Month Exam HPI Corwin Paredes is a 66 year old male who presents here today for a 6 month follow up. Pt here today for a 6 month follow up. Here with . Denies any stomach, bowel or urinary issues. Does have hx of diverticulitis and elevated PSA. He does not get up at night to urinate. Does not take any medication for prostate, no urologist. Last PSA 6.37 in 02/19. Has had negative biopsy in the past. Saw Dr Pleitez in 04/22, with plan to monitor. GERD: No longer taking Prilosec OTC 20 mg daily, which was started in past by ENT. Symptoms stable will occ use OTC Tums. Has expressed concern in the past of medication affecting his INR. Lipid: Taking Crestor 5 mg daily 3 days per week and Zetia 10 mg daily. Tries to watch diet and exercise. A fib/S/P aortic valve replacement: Coumadin and INR managed by Pharmacists. Follows with Cardio Sarah Bentley CNP for the A-fib. Has appt with Cardio Dr. Pack in September. He denies any chest pain, sob or dizziness. Past medical history, appointments, medications, allergies reviewed. 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 0 hearing in left ear, 25% in right Elevated PSA 10/20/2010 Dr. Pleitez S/P AVR [address] Osei. INR 3-4 Sigmoid diverticulitis Venous insufficiency of leg 08/01/2012 Previous Surgical History PAST SURGICAL HISTORY Procedure Laterality Date COLONOSCOPY 02/08/2018 done at [facility] with MAC by Dr. Blake Dillon L'SCOPE CHOLECYSTECTOMY N/A [facility]--Reba Dillon PERCUTANEOUS AORTIC VALVE REPLACEMENT Family History FAMILY HISTORY Problem Relation Age of Onset Heart disease Mother Parkinson?s Disease Father Prostate Cancer Brother Heart Attack Paternal Uncle No Known Problems Son No Known Problems Son Patient Allergies ALLERGIES Allergen Reactions Nmujzyn-Rib-Kts Red* Myalgia Current Medications Current Outpatient Medications on File Prior to Visit Medication Sig warfarin (COUMADIN) 10 mg tablet TAKE 10 MG DAILY EXCEPT 5 MG ON Sunday OR DIRECTED BY ANTICOAGULATION CLINIC ezetimibe (ZETIA) 10 mg tablet Take 1 tablet by mouth once daily. rosuvastatin (CRESTOR) 5 mg tablet Take 1 tablet by mouth three times a week. After supper or bedtime Sunday, Sunday and Sunday Omeprazole Magnesium 20 mg tablet Take 1 tablet by mouth daily before breakfast. 1/2 hr before meal. Started by Dr. Lundy at [facility] (Patient not taking: Reported on 02/13/2022) acetaminophen (TYLENOL 8 HOUR ORAL) Take by mouth. Current Facility-Administered Medications on File Prior to Visit Medication perflutren lipid microspheres 1.3 mL in NaCl (PF) 0.9% 10 mL injection (DEFINITY) sodium chloride 0.9 % (flush) 10 mL (BD POSIFLUSH) Social History Social History Tobacco Use Smoking status: Never Smokeless tobacco: Never Vaping Use Vaping Use: Never used Substance Use Topics Alcohol use: No Drug use: No EXAM: BP 120/80 Pulse 74 Resp 16 Wt 102 kg (224 lb 12.8 oz) BMI 30.95 kg/m? General Appearance: Well appearing, alert, in no acute distress, well-hydrated, well nourished.. Lungs: Lungs clear to auscultation. No wheezing, rhonchi, rales.. Heart: irregular with systolic murmur Health Maintenance List HEPATITIS C SCREENING Never done SHINGRIX VACCINE(1 of 2) Never done PNEUMOCOCCAL: 65+(1 - PCV) Never done ADVANCE DIRECTIVE DISCUSSION Never done DEPRESSION ASSESSMENT Never done INFLUENZA(1) due on 09/29/2022 COVID-19 VACCINE(1) due on 12/28/2022 DIABETES SCREEN due on 01/13/2025 PROSTATE CANCER SCREENING DISCUSSION due on 02/11/2025 LIPID SCREEN due on 01/13/2027 COLORECTAL CANCER SCREENING due on 02/08/2028 DTAP,TDAP,TD(3 - Td or Tdap) due on 09/08/2030 Data reviewed Appointment on 06/20/2022 Component Date Value Protein, Total 06/20/2022 7.3 Albumin 06/20/2022 4.4 Calcium, Total 06/20/2022 9.6 Bilirubin, Total 06/20/2022 0.9 Alkaline Phosphatase 06/20/2022 65 AST 06/20/2022 27 ALT 06/20/2022 27 Glucose 06/20/2022 71 (A) BUN 06/20/2022 11 Creatinine 06/20/2022 1.24 (A) Sodium 06/20/2022 141 Potassium 06/20/2022 5.3 (A) Chloride 06/20/2022 105 CO2 06/20/2022 26 Anion Gap 06/20/2022 10 Estimated Glomerular Dhaval* 06/20/2022 64 Cholesterol, Total 06/20/2022 161 Triglyceride 06/20/2022 166 (A) HDL Cholesterol 06/20/2022 41 Non HDL Cholesterol 06/20/2022 120 Fasting Time 06/20/2022 12 VLDL Cholesterol 06/20/2022 33 (A) TC:HDL Ratio 06/20/2022 3.93 LDL Cholesterol 06/20/2022 87 LDL:HDL Ratio 06/20/2022 2.12 PT Sec 06/20/2022 38.5 (A) INR 06/20/2022 4.1 (A) Appointment on 05/19/2022 Component Date Value (more content not included)... [facility] 06-27-2022 History of Presen t illness Narrative Chief Complaint Patient presents with: 6 Month Exam HPI Corwin Paredes is a 66 year old male who presents here today for a 6 month follow up. Pt here today for a 6 month follow up. Here with . Denies any stomach, bowel or urinary issues. Does have hx of diverticulitis and elevated PSA. He does not get up at night to urinate. Does not take any medication for prostate, no urologist. Last PSA 6.37 in 02/19. Has had negative biopsy in the past. Saw Dr Pleitez in 04/22, with plan to monitor. GERD: No longer taking Prilosec OTC 20 mg daily, which was started in past by ENT. Symptoms stable will occ use OTC Tums. Has expressed concern in the past of medication affecting his INR. Lipid: Taking Crestor 5 mg daily 3 days per week and Zetia 10 mg daily. Tries to watch diet and exercise. A fib/S/P aortic valve replacement: Coumadin and INR managed by Pharmacists. Follows with Cardio Sarah Bentley CNP for the A-fib. Has appt with Cardio Dr. Pack in September. He denies any chest pain, sob or dizziness. Past medical history, appointments, medications, allergies reviewed. 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 0 hearing in left ear, 25% in right Elevated PSA 10/20/2010 Dr. Pleitez S/P AVR [address] Osei. INR 3-4 Sigmoid diverticulitis Venous insufficiency of leg 08/01/2012 Previous Surgical History PAST SURGICAL HISTORY Procedure Laterality Date COLONOSCOPY 02/08/2018 done at [facility] with MAC by Dr. Blake Dillon L'SCOPE CHOLECYSTECTOMY N/A [facility]--Reba Dillon PERCUTANEOUS AORTIC VALVE REPLACEMENT Family History FAMILY HISTORY Problem Relation Age of Onset Heart disease Mother Parkinson s Disease Father Prostate Cancer Brother Heart Attack Paternal Uncle No Known Problems Son No Known Problems Son Patient Allergies ALLERGIES Allergen Reactions Dlrdutx-Lsw-Gmg Red* Myalgia Current Medications Current Outpatient Medications on File Prior to Visit Medication Sig warfarin (COUMADIN) 10 mg tablet TAKE 10 MG DAILY EXCEPT 5 MG ON Sunday OR DIRECTED BY ANTICOAGULATION CLINIC ezetimibe (ZETIA) 10 mg tablet Take 1 tablet by mouth once daily. rosuvastatin (CRESTOR) 5 mg tablet Take 1 tablet by mouth three times a week. After supper or bedtime Sunday, Sunday and Sunday Omeprazole Magnesium 20 mg tablet Take 1 tablet by mouth daily before breakfast. 1/2 hr before meal. Started by Dr. Lundy at [facility] (Patient not taking: Reported on 02/13/2022) acetaminophen (TYLENOL 8 HOUR ORAL) Take by mouth. Current Facility-Administered Medications on File Prior to Visit Medication perflutren lipid microspheres 1.3 mL in NaCl (PF) 0.9% 10 mL injection (DEFINITY) sodium chloride 0.9 % (flush) 10 mL (BD POSIFLUSH) Social History Social History Tobacco Use Smoking status: Never Smokeless tobacco: Never Vaping Use Vaping Use: Never used Substance Use Topics Alcohol use: No Drug use: No EXAM: BP 120/80 Pulse 74 Resp 16 Wt 102 kg (224 lb 12.8 oz) BMI 30.95 kg/m General Appearance: Well appearing, alert, in no acute distress, well-hydrated, well nourished.. Lungs: Lungs clear to auscultation. No wheezing, rhonchi, rales.. Heart: irregular with systolic murmur Health Maintenance List HEPATITIS C SCREENING Never done SHINGRIX VACCINE(1 of 2) Never done PNEUMOCOCCAL: 65+(1 - PCV) Never done ADVANCE DIRECTIVE DISCUSSION Never done DEPRESSION ASSESSMENT Never done INFLUENZA(1) due on 09/29/2022 COVID-19 VACCINE(1) due on 12/28/2022 DIABETES SCREEN due on 01/13/2025 PROSTATE CANCER SCREENING DISCUSSION due on 02/11/2025 LIPID SCREEN due on 01/13/2027 COLORECTAL CANCER SCREENING due on 02/08/2028 DTAP,TDAP,TD(3 - Td or Tdap) due on 09/08/2030 Data reviewed Appointment on 06/20/2022 Component Date Value Protein, Total 06/20/2022 7.3 Albumin 06/20/2022 4.4 Calcium, Total 06/20/2022 9.6 Bilirubin, Total 06/20/2022 0.9 Alkaline Phosphatase 06/20/2022 65 AST 06/20/2022 27 ALT 06/20/2022 27 Glucose 06/20/2022 71 (A) BUN 06/20/2022 11 Creatinine 06/20/2022 1.24 (A) Sodium 06/20/2022 141 Potassium 06/20/2022 5.3 (A) Chloride 06/20/2022 105 CO2 06/20/2022 26 Anion Gap 06/20/2022 10 Estimated Glomerular Dhaval* 06/20/2022 64 Cholesterol, Total 06/20/2022 161 Triglyceride 06/20/2022 166 (A) HDL Cholesterol 06/20/2022 41 Non HDL Cholesterol 06/20/2022 120 Fasting Time 06/20/2022 12 VLDL Cholesterol 06/20/2022 33 (A) TC:HDL Ratio 06/20/2022 3.93 LDL Cholesterol 06/20/2022 87 LDL:HDL Ratio 06/20/2022 2.12 PT Sec 06/20/2022 38.5 (A) INR 06/20/2022 4.1 (A) Appointment on 05/19/2022 Component Date Value PT Sec 05/19/2022 36.6 (A) INR 05/19/2022 3.9 (A) Appointment on 05/04/2022 Component Date Value PT Sec 05/04/2022 46.9 (A) INR 05/04/2022 5.0 (A) ASSESSMENT/PLAN: 1. Atrial fibrillation, unspecified type (HCC) - ICD9: 427.31, ICD10: I48.91 (primary diagnosis) Continue current medications. 2. Other hyperlipidemia - ICD9: 272.4, ICD10: E78.49 Stable Continue current medications. Continue with Cardio 3. Bilateral hearing loss, unspecified hearing loss type - ICD9: 389.9, ICD10: H91.93 4. Elevated PSA - ICD9: 790.93, ICD10: R97.20 Check PSA next visit Follow up in 6 months with fasting labs prior. I agree with the Chief Complaint, ROS, and Past Histories independently gathered by the clinical technology support analyst and the remaining scribed note accurately describes my personal service to the patient. Medical Decision Making: Problems: Moderate: 2+ stable chronic illnesses Data: Unique test result(s) reviewed: 2 Unique test(s) ordered: 2 Risk: Moderate: Drug management Medical Decision Making Level: 4 - Moderate Rajesh Tadeo MD The documentation for this note was completed by Mini Garcia Ma acting as scribe for Rajesh Tadeo MD. June 27, 2022 10:38 AM. Mini Garcia Ma documented in this encounter [facility] 06-20-2022 Miscellaneous Notes [facility] Ambulatory Pharmacy Anticoagulation Clinic Anticoagulation Episode Summary Anticoagulation Care Providers Provider Role Specialty Phone number Rajesh Tadeo MD Referring Family Medicine [phone] Corwin Paredes is a 66 year old year old male patient being evaluated today for a Lab INR. Patient is currently on the following anticoagulant(s) Warfarin. Labs PT INR (no units) Date Value 11/28/2021 3.4 ([facility]) 04/16/2021 3.5 03/10/2021 3.7 INR (no units) Date Value 06/20/2022 4.1 05/19/2022 3.9 05/04/2022 5.0 Hemoglobin (g/dL) Date Value 02/12/2020 15.0 Hematocrit (%) Date Value 02/12/2020 46.7 Platelet Count (k/uL) Date Value 02/12/2020 259 Creatinine (mg/dL) Date Value 01/13/2022 1.10 04/16/2021 1.06 02/12/2020 1.14 11/26/2018 1.26 Bilirubin, Total (mg/dL) Date Value 01/13/2022 0.8 04/16/2021 0.6 ALT (U/L) Date Value 01/13/2022 22 04/16/2021 25 AST (U/L) Date Value 01/13/2022 24 04/16/2021 32 CrCl cannot be calculated (Unknown ideal weight.). ALLERGIES Allergen Reactions Feiqset-Qxo-Vsa Red* Myalgia Indication for Warfarin: Anticoagulation Episode Summary Current INR goal: 3.0-4.0 Assessment: INR result of 4.1 is slightly SUPRAtherapeutic due to: No obvious cause Patient denies any medication changes, grapefruit/cranberry ingestion, OTC/herbal/nutritional supplement use, accidental over dosage, changes in warfarin tablet color/shape/talent acquisition specialist, eating less green vegetables, recent illness/fever/nausea/vomiting/di arrhea, increased edema/SOB, or ETOH consumption. Plan: Current Warfarin Dosing As of 06/20/2022 Full warfarin instructions: 06/20: 8 mg; Otherwise 5 mg every Sun; 10 mg all other days Called and spoke to patient/caregiver spouse Advised patient to decrease dose for 1 day only then resume weekly regimen Next lab INR check scheduled on 07/11/2022 Patient's caregiver verbalizes understanding of the plan. Genna Maria RPh Clinical Pharmacist, Pharmacy Anticoagulation Clinic Pharmacy Anticoagulation Clinic Pager: [phone]. documented in this encounter [facility] 06-09-2022 Miscellaneous Notes Patient due to test INR today. Will continue to monitor for results. Phyllis Friedman RPh documented in this encounter [facility] 05-19-2022 Miscellaneous Notes See other TE re: pt's lab INR. He will return to the lab by 06/09. Baylee Lancaster PharmD Pharmacy Anticoagulation Clinic documented in this encounter [facility] 05-08-2022 Miscellaneous Notes Addressed in 04/26 TE Appointment on 05/04/2022 Component Date Value PT Sec 05/04/2022 46.9 (A) INR 05/04/2022 5.0 (A) Mini Garcia Ma documented in this encounter [facility] 05-04-2022 Miscellaneous Notes [facility] Ambulatory Pharmacy Anticoagulation Clinic Anticoagulation Episode Summary Anticoagulation Care Providers Provider Role Specialty Phone number Rajesh Tadeo MD Referring Family Medicine [phone] Corwin Paredes is a 66 year old year old male patient being evaluated today for a Lab INR. Patient is currently on the following anticoagulant(s) Warfarin. Labs PT INR (no units) Date Value 11/28/2021 3.4 ([facility]) 04/16/2021 3.5 03/10/2021 3.7 INR (no units) Date Value 05/04/2022 5.0 04/04/2022 3.6 03/22/2022 4.8 Hemoglobin (g/dL) Date Value 02/12/2020 15.0 Hematocrit (%) Date Value 02/12/2020 46.7 Platelet Count (k/uL) Date Value 02/12/2020 259 Creatinine (mg/dL) Date Value 01/13/2022 1.10 04/16/2021 1.06 02/12/2020 1.14 11/26/2018 1.26 Bilirubin, Total (mg/dL) Date Value 01/13/2022 0.8 04/16/2021 0.6 ALT (U/L) Date Value 01/13/2022 22 04/16/2021 25 AST (U/L) Date Value 01/13/2022 24 04/16/2021 32 CrCl cannot be calculated (Unknown ideal weight.). ALLERGIES Allergen Reactions Snkcovr-Mvk-Ypw Red* Myalgia Indication for Warfarin: Atrial fibrillation, unspecified type (hcc) salvage determiner current use of anticoagulant therapy Anticoagulation Episode Summary Current INR goal: 3.0-4.0 Assessment: INR result of is SUPRAtherapeutic due to: No obvious cause Patient denies any vomitting/diarrhea, grapefruit/cranberry ingestion, increased use of APAP or NSAIDS, change in nutritional supplements and increased EtOH use or edema. Plan: Current Warfarin Dosing As of 04/26/2022 Full warfarin instructions: 2: Hold; Otherwise 5 mg every Fri; 10 mg all other days Called and spoke to patient/caregiver Advised patient to hold 1 dose then decrease current regimen Next lab INR check scheduled on 05/18/2022 Patient's caregiver verbalizes understanding of the plan. Patient denies need for refills. Ron Edwards RPh Clinical Pharmacist, Pharmacy Anticoagulation Clinic Pharmacy Anticoagulation Clinic Pager: [phone]. Corwin Paredes was called and reminded to test INR today or as soon as possible. Spoke to pt's -she said she will have Corwin test by tomorrow (05/04). Baylee Lancaster PharmD Patient was due to test INR today will continue to monitor for results. Baylee Lancaster PharmD documented in this encounter [facility] 02-28-2022 Miscellaneous Notes PATIENT CALL Patient called call center regarding message. Patient's spouse returned the call. Read [facility] notes below and she verbalized understanding of 10mg daily starting 02/28 and next INR 03/21/2022. Will route to [facility] as an FYI. Isai Kennedy (Chief Investigator) [facility] Ambulatory Pharmacy Anticoagulation Clinic Anticoagulation Episode Summary Anticoagulation Care Providers Provider Role Specialty Phone number Rajesh Tadeo MD Referring Family Medicine [phone] Corwin Paredes is a 66 year old year old male patient being evaluated today for a Lab INR. Patient is currently on the following anticoagulant(s) Warfarin. Labs PT INR (no units) Date Value 11/28/2021 3.4 ([facility]) 04/16/2021 3.5 03/10/2021 3.7 INR (no units) Date Value 02/27/2022 4.0 02/13/2022 4.7 12/26/2021 5.0 Hemoglobin (g/dL) Date Value 02/12/2020 15.0 Hematocrit (%) Date Value 02/12/2020 46.7 Platelet Count (k/uL) Date Value 02/12/2020 259 Creatinine (mg/dL) Date Value 01/13/2022 1.10 04/16/2021 1.06 02/12/2020 1.14 11/26/2018 1.26 Bilirubin, Total (mg/dL) Date Value 01/13/2022 0.8 04/16/2021 0.6 ALT (U/L) Date Value 01/13/2022 22 04/16/2021 25 AST (U/L) Date Value 01/13/2022 24 04/16/2021 32 CrCl cannot be calculated (Unknown ideal weight.). ALLERGIES Allergen Reactions Flrzfgj-Thc-Umo Red* Myalgia Indication for Warfarin: Anticoagulation Episode Summary Current INR goal: 3.0-4.0 Assessment: INR result of 4.0 is therapeutic Plan: Current Warfarin Dosing As of 02/28/2022 Full warfarin instructions: 10 mg every day; Starting 02/28/2022 Left voice message Advised patient to continue current weekly dose as noted above Next home INR check scheduled on 03/21/2022 Genna Maria RPh Clinical Pharmacist, Pharmacy Anticoagulation Clinic Pharmacy Anticoagulation Clinic Pager: [phone]. documented in this encounter [facility] 02-28-2022 Miscellaneous Notes Pt notified of results. Voices understanding and will pass along to pt. Mary Evans RN ----- Message from Sarah Bentley APRN.CNP sent at 02/28/2022 12:20 PM EST ----- Please call patient and notify him of results. Prosthetic valve function remained stable on echocardiogram. Thank you! documented in this encounter [facility] 02-28-2022 Miscellaneous Notes Please call patient and notify him of results. Prosthetic valve function remained stable on echocardiogram. Thank you! documented in this encounter [facility] 02-17-2022 Miscellaneous Notes OK to refill as ordered Rajesh Tadeo MD Patient phones requesting refills as follows: Requested Prescriptions Pending Prescriptions Disp Refills warfarin (COUMADIN) 2 mg tablet [Pharmacy Med Name: WARFARIN SODIUM 2 MG TABLET] 30 tablet 0 Sig: TAKE 1 TAB BY MOUTH ONCE DAILY WITH THE 10MG, TOTAL 12MG DAILY DIRECTED NII 12/28/2021 NOV 06/27/2022 Previous labs/tests for medication: Coumadin: PT INR (no units) Date Value 11/28/2021 3.4 ([facility]) INR (no units) Date Value 02/13/2022 4.7 Please advise. Thank you. SOHA Wood documented in this encounter [facility] 02-14-2022 Miscellaneous Notes [facility] Ambulatory Pharmacy Anticoagulation Clinic Anticoagulation Episode Summary Anticoagulation Care Providers Provider Role Specialty Phone number Rajesh Tadeo MD Referring Family Medicine [phone] Corwin Paredes is a 66 year old year old male patient being evaluated today for a Lab INR. Patient is currently on the following anticoagulant(s) Warfarin. Labs PT INR (no units) Date Value 11/28/2021 3.4 ([facility]) 04/16/2021 3.5 03/10/2021 3.7 INR (no units) Date Value 02/13/2022 4.7 12/26/2021 5.0 10/11/2021 3.9 Hemoglobin (g/dL) Date Value 02/12/2020 15.0 Hematocrit (%) Date Value 02/12/2020 46.7 Platelet Count (k/uL) Date Value 02/12/2020 259 Creatinine (mg/dL) Date Value 01/13/2022 1.10 04/16/2021 1.06 02/12/2020 1.14 11/26/2018 1.26 Bilirubin, Total (mg/dL) Date Value 01/13/2022 0.8 04/16/2021 0.6 ALT (U/L) Date Value 01/13/2022 22 04/16/2021 25 AST (U/L) Date Value 01/13/2022 24 04/16/2021 32 CrCl cannot be calculated (Unknown ideal weight.). ALLERGIES Allergen Reactions Lauyoxa-Ote-Gxr Red* Myalgia Indication for Warfarin: Anticoagulation Episode Summary Current INR goal: 3.0-4.0 Assessment: INR result of 4.7 is SUPRAtherapeutic due to: Decreased vitamin k intake Plan: Current Warfarin Dosing As of 02/14/2022 Full warfarin instructions: 02/14: Hold; Otherwise 10 mg every day Called and spoke to patient/caregiver spouse Advised patient to hold 1 dose then decrease current regimen as noted above Next lab INR check scheduled on 02/27/2022 Patient's caregiver verbalizes understanding of the plan. Genna Maria RPh Clinical Pharmacist, Pharmacy Anticoagulation Clinic Pharmacy Anticoagulation Clinic Pager: [phone]. documented in this encounter [facility] 02-13-2022 Instructions Sarah Bentley APRN.TATTOO IDENTIFIER - 02/13/2022 10:57 AM EST Cholesterol: Controlling with Lifestyle Changes What is cholesterol? Cholesterol is a type of fat. Your body makes some cholesterol and gets the rest from foods such as meats, dairy products, and eggs. Cholesterol has both good and bad effects on the body. Your body uses cholesterol to make hormones and to build and maintain cells. When your body has too much cholesterol, the excess fat sticks to the inside of the blood vessel velasquez. This is called plaque. Plaque makes the blood vessel velasquez thicker and the area inside the vessels smaller. This means less blood can flow through the blood vessels. Also, pieces of plaque may break off and block blood flow, which can cause a heart attack or stroke. The main types of cholesterol are LDL (low-density lipoprotein) and HDL (high-density lipoprotein). LDL leaves behind fatty deposits on artery velasquez and contributes to heart disease. LDL is called bad cholesterol. (You can think of L for lousy cholesterol.) HDL does the opposite: It cleans the artery velasquez, removes extra cholesterol from the body, and lowers the risk of heart disease. HDL is called good cholesterol. (Think of H for healthy cholesterol.) It is good to have lower levels of LDL and higher levels of HDL. Your healthcare provider can check your cholesterol with a blood test. Controlling the level of cholesterol in your blood lowers your risk for heart disease. It also lowers the chance of a heart attack or from heart disease if you already have heart disease. How can I control my cholesterol level? You can often control cholesterol levels by: Eating healthy Losing weight if you are overweight Exercising Not smoking If you have a high risk for heart disease, your healthcare provider may prescribe cholesterol-lowering medicine as well as changes in your diet and other aspects of your lifestyle. Your provider may also prescribe medicine if you have an inherited tendency to have high cholesterol. Eat healthy. A diet high in fiber and low in saturated fat and cholesterol can help prevent or lower cholesterol levels. You can find out how much and what kind of fat a food has by reading the food label. No more than 20 to 35% of your total calories should be from fat. Most of the fat you eat should be polyunsaturated or monounsaturated fat. These fats are healthier than other types of fat. They can be found in foods such as fish, avocados, vegetable oils (especially olive oil), nuts (like almonds, peanuts, and walnuts) and seeds (for example, pumpkin seeds). Limit the amount of saturated and trans fat that you eat. Saturated fat is found in whole milk, cheese, butter, ice cream, cream, lard, fatty cuts of meat, poultry with the skin on, and some tropical vegetable oils, such as coconut and palm kernel oil. Trans fat may be found in stick margarine, shortening, Armenian fries, cookies, crackers, and bakery goods. If the food label has the words partially hydrogenated , the product probably has trans fat. Limit the cholesterol in your diet to less than 300 mg a day. If you have heart disease or a high risk of heart disease, limit cholesterol to less than 200 mg a day. Changes you can make in your diet include: Drink nonfat or 1% milk instead of whole milk, and eat fat-free or low-fat milk, cheese, spreads, and yogurt. Use egg whites or egg substitutes rather than whole eggs. Use salad dressings made from healthy oils, such as canola, olive, peanut, and flaxseed oil. Eat fish, chicken and turkey cooked without the skin, and meatless entrees. Eat red meat (beef, pork, zavaleta) and processed meats (like salami, bologna, hot dogs, sausage, and dyer) no more than 2 times a week. Choose lean cuts of meat and trim off all visible fat. Choose at least 90% lean ground beef. Keep portion sizes moderate, which is about 3 to 4 ounces per serving. Eat less sugar and less fried food and junk food, like Armenian fries, chips, cookies, crackers, and doughnuts. Choose healthier desserts, such as fresh fruits, nonfat frozen yogurt, and Popsicles. Avoid fatty desserts such as ice cream, cream-filled cakes, and cheesecakes. Eat more fruit, vegetables; beans; and whole grains, such as oats, brown rice, quinoa and bran. The fiber in these foods helps lower cholesterol. Eat 1.5 ounces (42.5 grams) a day of unsalted nuts and seeds. Nuts and seeds are full of fiber, protein, and healthy fats. Nuts and seeds are also high in calories, so they should be eaten in small portions and used to replace other protein foods, like some meat or poultry, rather than being added to the diet. Examples of nuts and seeds that can be a part of a healthy diet are walnuts, almonds, hazelnuts, peanuts, pecans, and pistachio nuts, sunflower seeds, and pumpkin seeds. Check labels for plant sterols or stanols added to some foods, such as special margarines, milk, and orange juice. These ingredients can help lower LDL. The recommended amount is 2 grams a day. Limit alcohol to no more than 2 drinks a day for men and 1 drink a day for women. Ask your healthcare provider for a referral to a flat locker to learn more about eating healthy. Lose excess weight. You can lose weight by eating fewer calories. Losing weight: Helps lower both total cholesterol and bad LDL cholesterol Increases your energy and helps you feel better (both physically and mentally) Lowers your risk for heart attack or stroke Talk to your healthcare provider about your weight. If you need to lose weight, plan for a gradual weight loss of 1 to 2 pounds a week. Exercise. Being physically active also helps control cholesterol. Exercise helps because it: Keeps your weight down Lowers your total cholesterol Lowers your LDL (bad cholesterol) Raises your HDL (good cholesterol) A good exercise goal is at least 2 hours and 30 minutes (150 minutes) of moderate exercise a week. Moderate exercise means you're working hard enough to raise your heart rate and break a sweat. Examples of moderate exercise are walking fast, doing water aerobics, or playing doubles tennis. Increasing the intensity of your exercise or getting at least 5 hours (300 minutes) of moderate exercise a week will have even greater health benefits. It can help you lose weight and keep a healthy weight. If you haven't been exercising, ask your healthcare provider for an exercise prescription and start your new exercise program slowly. Don t smoke. Smoking increases your risk of heart disease because it lowers HDL levels, increases your risk of blood clots and stroke, and decreases oxygen to the tissues. If you smoke, talk to your healthcare provider about quitting. How can I know if my cholesterol level is normal? Get your cholesterol levels checked by your healthcare provider regularly. At first your cholesterol level may need to be checked every 3 to 6 months until it is staying in the normal range. Then you may need to check it just once a year. Developed by [employer]. Published by [employer]. Copyright 2014 [employer] and/or one of its subsidiaries. All rights reserved. documented in this encounter [facility] 02-13-2022 History of Presen t illness Narrative Images from the original note were not included. [facility]IOLOGY Cardiology ([facility]) [address] [facility] [id number] OUTPATIENT VISIT February 13, 2022 10:30 AM Chief Complaint Patient presents with: New History of Present Illness: Corwin Paredes is a 66 year old male who presents for cardiology evaluation. He has a PMhx of HTN, HLD, AVR (St. Kris mechanical valve by Dr. Rosenberg [facility] 1989, on coumadin), PAF (postoperatively). He previously followed with Dr. Osei, last seen in office 01/2020. His accompanies him for his office visit today. He is interested in establishing care here in this office with Dr. Pack. He is hard of hearing and uses lip reading to communicate. His is also with him for clarification regarding communication. He states he has been doing well without significant cardiac symptoms. He admits he needs to do more intentional exercise. He does have a treadmill at home. He has been somewhat sedentary since retiring. He does do routine yard work and housework. He denies chest pain, shortness of breath, dizziness, palpitations, orthopnea, LE swelling. We reviewed cardiac risk factors and modifications. He reports taking medications as prescribed. INR levels are monitored by his PCP. He is agreeable to add Zetia to his regimen for lipid reduction, unable to tolerate higher doses of statins. We will complete follow-up lab work prior to next office visit. Repeat echocardiogram for routine surveillance of remote valve replacement. 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 0 hearing in left ear, 25% in right Elevated PSA 10/20/2010 Dr. Pleitez S/P AVR [address] Osei. INR 3-4 Sigmoid diverticulitis Venous insufficiency of leg 08/01/2012 PAST SURGICAL HISTORY Procedure Laterality Date COLONOSCOPY 02/08/2018 done at [facility] with MAC by Dr. Blake Dillon L'SCOPE CHOLECYSTECTOMY N/A [facility]--Reba Dillon PERCUTANEOUS AORTIC VALVE REPLACEMENT FAMILY HISTORY Problem Relation Age of Onset Heart disease Mother Parkinson s Disease Father Prostate Cancer Brother Heart Attack Paternal Uncle No Known Problems Son No Known Problems Son Social History Tobacco Use Smoking status: Never Smokeless tobacco: Never Vaping Use Vaping Use: Never used Substance Use Topics Alcohol use: No Drug use: No Cardiac Risk Factors: age (male over 45, female over 55), hyperlipidemia, obesity, hypertension ALLERGIES Allergen Reactions Gefhogm-Ltz-Bsm Red* Myalgia Medications: Current Outpatient Medications Medication Sig Dispense Refill warfarin (COUMADIN) 2 mg tablet TAKE 1 TAB BY MOUTH ONCE DAILY WITH THE 10MG, TOTAL 12MG DAILY DIRECTED 30 tablet 0 warfarin (COUMADIN) 10 mg tablet TAKE 12MG DAILY OR DIRECTED BY ANTICOAGULATION CLINIC (PT ALSO HAS 2MG TABLET). 30 tablet 11 acetaminophen (TYLENOL 8 HOUR ORAL) Take by mouth. ezetimibe (ZETIA) 10 mg tablet Take 1 tablet by mouth once daily. 90 tablet 3 rosuvastatin (CRESTOR) 5 mg tablet Take 1 tablet by mouth three times a week. After supper or bedtime Sunday, Sunday and Sunday 36 tablet 3 Omeprazole Magnesium 20 mg tablet Take 1 tablet by mouth daily before breakfast. 1/2 hr before meal. Started by Dr. Lundy at [facility] (Patient not taking: Reported on 02/13/2022) Current Facility-Administered Medications Medication Dose Route Frequency Provider Last Rate Last Admin perflutren lipid microspheres 1.3 mL in NaCl (PF) 0.9% 10 mL injection (DEFINITY) INTRAVENOUS DIRECTED PRN Sarah Bentley APRN.CNP sodium chloride 0.9 % (flush) 10 mL (BD POSIFLUSH) 10 mL INTRAVENOUS DIRECTED PRN Sarah Bentley APRN.MARS Review of Systems Constitutional: Negative for chills, diaphoresis, fever, malaise/fatigue and weight loss. HENT: Positive for hearing loss. Negative for congestion, ear pain, nosebleeds, sinus pain and sore throat. Eyes: Negative for pain. Respiratory: Negative for cough, shortness of breath and wheezing. Cardiovascular: Negative for chest pain, palpitations and leg swelling. Gastrointestinal: Negative for abdominal pain, blood in stool and melena. Genitourinary: Negative for hematuria. Musculoskeletal: Negative for falls. Neurological: Negative for dizziness, tingling, sensory change, speech change, focal weakness, loss of consciousness, weakness and headaches. Endo/Heme/Allergies: Does not bruise/bleed easily. Psychiatric/Behavioral: Negative for depression, memory loss and suicidal ideas. The patient is not nervous/anxious and does not have insomnia. Physical Examination: Vitals:BP 130/78 Pulse 58 Wt 225 lb 6.4 oz (102.2kg) Last 2 Encounter Wt Readings: Date: Wt: 12/28/2021 221 lb (100.2 kg) 06/22/2021 219 lb 3.2 oz (99.4 kg) Physical Exam HENT: Head: Normocephalic. Eyes: Pupils: Pupils are equal, round, and reactive to light. Cardiovascular: Rate and Rhythm: Normal rate. Pulses: Radial pulses are 2+ on the right side and 2+ on the left side. Dorsalis pedis pulses are 2+ on the right side and 2+ on the left side. Heart sounds: Normal heart sounds, S1 normal and S2 normal. Murmur: mechanical valve. Pulmonary: Effort: Pulmonary effort is normal. No accessory muscle usage or respiratory distress. Breath sounds: Normal breath sounds. Abdominal: General: Bowel sounds are normal. Palpations: Abdomen is soft. Musculoskeletal: General: Normal range of motion. Cervical back: Normal range of motion. Skin: General: Skin is warm and dry. Neurological: Mental Status: He is alert and oriented to person, place, and time. Gait: Gait is intact. Psychiatric: Mood and Affect: Affect normal. Cognition and Memory: Memory normal. Judgment: Judgment normal. Most Recent Cardiac Testing Echo 06/2019 CONCLUSIONS: - Exam indication: S/P AVR - The left ventricle is normal in size. Left ventricular systolic function is normal. EF = 57 5% (2D biplane) Grade I left ventricular diastolic dysfunction. - The right ventricle is normal in size. Right ventricular systolic function is normal. - The visualized aorta is dilated with a maximal dimension of 4.3 cm. - St. Kris prosthetic aortic valve (size #23). There is trace aortic valve regurgitation. The peak gradient is 38 mmHg, the mean gradient is 23 mmHg and the dimensionless valve index is 0.34. - Exam was compared with the prior echocardiographic exam performed on 08/07/2016. Prior AV gradients were 42/24 mmHg. Assessment and Plan: Bicuspid aortic valve stenosis s/p remote valve replacement -St. Kris mechanical valve by Dr. Rosenberg [facility] 1989, on coumadin -ECHO on 06/2019 showing peak and mean gradients of 38 & 23 mmHg, and DI of 0.34 indicating that the patient is with stable aortic valve replacement function -LVEF is 57% -asymptomatic -continue coumadin with INR goal 2.5-3.5 -Repeat echocardiogram for routine surveillance of remote valve replacement Mild diastolic dysfunction -EF 57%, Grade I left ventricular diastolic dysfunction. -compensated on exam -recommended heart healthy, 2g low sodium diet, daily weights HTN -130/78 -Continue current medication(s) -Encouraged dietary sodium restriction/DASH diet -Recommended regular aerobic exercise. -Recommend home blood pressure monitoring, to bring results in on next visit -Discussed need and benefit for weight loss. -Goal of BP <130/80 HLD -lipid panel 12/2021 LDL 122 -continue Crestor 5 mg three times a week (statin intolerance with higher doses). Add zetia -repeat CMP/FLP in 12 weeks Obesity -lifestyle modifications -encouraged a heart healthy diet, routine exercise and weight loss Follow up with Dr. Pack in 6 months. Patient to call with any issues or concerns prior to then. Electronically signed by Sarah Bentley APRN.CNP on February 13, 2022, 10:20 AM documented in this encounter [facility] 01-24-2022 Miscellaneous Notes The following approved medication requests have been transmitted electronically. Requested Prescriptions Pending Prescriptions Disp Refills warfarin (COUMADIN) 2 mg tablet [Pharmacy Med Name: WARFARIN SODIUM 2 MG TABLET] 30 tablet 0 Sig: TAKE 1 TAB BY MOUTH ONCE DAILY WITH THE 10MG, TOTAL 12MG DAILY DIRECTED David Kline APRN.CNP Patient has been identified by name and date of : Yes Pharmacy phones for refill(s): Requested Prescriptions Pending Prescriptions Disp Refills warfarin (COUMADIN) 2 mg tablet [Pharmacy Med Name: WARFARIN SODIUM 2 MG TABLET] 30 tablet 0 Sig: TAKE 1 TAB BY MOUTH ONCE DAILY WITH THE 10MG, TOTAL 12MG DAILY DIRECTED Date of last office visit in primary care: [facility] 12/28/2021 Appointment scheduled 06/27/2022 Last 2 Encounter Wt Readings: Date: Wt: 12/28/2021 100.2 kg (221 lb) 06/22/2021 99.4 kg (219 lb 3.2 oz) Please advise. Thank you. SOHA Castañeda documented in this encounter [facility] 01-18-2022 Miscellaneous Notes Letter mailed to pt home of results. Mini Garcia MA Please notify patient that his lab results [place]; his cholesterol is just borderline high at 201. Stay on the same medications. Rajesh Tadeo MD documented in this encounter [facility] 12-28-2021 History of Presen t illness Narrative Chief Complaint Patient presents with: F/U 6 Month HPI Corwin Paredes is a 66 year old male who presents here today for 6 month follow up. No bowel, Gi, or urinary issues. No chest pains, dizziness, or SOB. GERD: Taking prilosec OTC 20 mg daily, which was started in past by ENT. Concerned about medication messing with his blood/INR. Overall symptoms have been okay, does use OTC Tums. Lipid: Taking Crestor 5 mg daily 3 days per week. Tries to watch diet and exercise. Coumadin and INR managed by Pharmacists. INR on 12/26/21 was 5.0. Scheduled to establish care with Cardio in the next few months. also asking to have veins on right leg checked. Pt states that a couple of months ago he got off the mower funny and thought he pulled a muscle. After looking at the area he had bruising and tenderness. This has since improved but notes still having some residual discomfort with sitting. Still able to play basketball. HM - Declines Covid and flu shots today. Declines depression symptoms. Past medical history, appointments, medications, allergies reviewed. 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 0 hearing in left ear, 25% in right Elevated PSA 10/20/2010 Dr. Pleitez S/P AVR [address] Osei. INR 3-4 Sigmoid diverticulitis Venous insufficiency of leg 08/01/2012 Previous Surgical History PAST SURGICAL HISTORY Procedure Laterality Date COLONOSCOPY 02/08/2018 done at [facility] with MAC by Dr. Blake Dillon L'SCOPE CHOLECYSTECTOMY N/A [facility]--Reba Dillon PERCUTANEOUS AORTIC VALVE REPLACEMENT Family History FAMILY HISTORY Problem Relation Age of Onset Heart disease Mother Parkinson s Disease Father Prostate Cancer Brother Heart Attack Paternal Uncle No Known Problems Son No Known Problems Son Patient Allergies ALLERGIES Allergen Reactions Qnplgtl-Dzk-Zdj Red* Myalgia Current Medications Current Outpatient Medications on File Prior to Visit Medication Sig Omeprazole Magnesium (PRILOSEC OTC) 20 mg tablet Take 1 tablet by mouth daily before breakfast. 1/2 hr before meal. Started by Dr. Lundy at [facility] warfarin (COUMADIN) 10 mg tablet TAKE 12MG DAILY OR DIRECTED BY ANTICOAGULATION CLINIC (PT ALSO HAS 2MG TABLET). warfarin (COUMADIN) 2 mg tablet Alternate 10 mg and 12 mg daily or as directed rosuvastatin (CRESTOR) 5 mg tablet Take 1 tablet by mouth three times a week. After supper or bedtime Sunday, Sunday and Sunday acetaminophen (TYLENOL 8 HOUR ORAL) Take by mouth. No current facility-administered medications on file prior to visit. Social History Social History Tobacco Use Smoking status: Never Smokeless tobacco: Never Substance Use Topics Alcohol use: No Drug use: No EXAM: BP 120/74 (BP Site: Left Arm, BP Position: Sitting, BP Cuff Size: Regular Adult) Pulse 64 Resp 16 Wt 100.2 kg (221 lb) BMI 30.43 kg/m General Appearance: Well appearing, alert, in no acute distress, well-hydrated, well nourished.. Lungs: Lungs clear to auscultation. No wheezing, rhonchi, rales.. Heart: RRR without murmur, gallop, or rubs. No ectopy. Extremities: indicates tenderness to posterior thigh, no selling or deformity, good ROM Health Maintenance List COVID-19 VACCINE(1) Never done ADVANCE DIRECTIVE DISCUSSION Never done DEPRESSION SCREENING due on 09/08/2021 INFLUENZA(1) due on 12/01/2021 HEPATITIS C SCREENING due on 03/11/2022 SHINGRIX VACCINE(1 of 2) due on 03/11/2022 PNEUMOCOCCAL: 65+(1 - PCV) due on 03/11/2022 DIABETES SCREEN due on 04/16/2024 PROSTATE CANCER SCREENING DISCUSSION due on 02/11/2025 LIPID SCREEN due on 04/16/2026 COLORECTAL CANCER SCREENING due on 02/08/2028 DTAP,TDAP,TD(3 - Td or Tdap) due on 09/08/2030 Data reviewed INR, no new labs completed. ASSESSMENT/PLAN: 1. Atrial fibrillation, unspecified type (HCC) - ICD9: 427.31, ICD10: I48.91 (primary diagnosis) - Cont monitoring through labs 2. History of aortic valve replacement - ICD9: V43.3, ICD10: Z95.2 - Continue current medication regimen. 3. Other hyperlipidemia - ICD9: 272.4, ICD10: E78.49 - Check labs in 2 weeks when INR is completed 4. GERD without esophagitis - ICD9: 530.81, ICD10: K21.9 - Discussed okay to use TUMS Probable hamstring strain; continue symptomatic treatment 6 month follow up with labs. Pt to complete labs ordered on 06/22/21 in the next 2 weeks. I agree with the Chief Complaint, ROS, and Past Histories independently gathered by the clinical technology support analyst and the remaining scribed note accurately describes my personal service to the patient. Medical Decision Making: Problems: Moderate: 2+ stable chronic illnesses Risk: Moderate: Drug management Medical Decision Making Level: 4 - Moderate Rajesh Tadeo MD The documentation for this note was completed by Hortencia Dexter Ma acting as scribe for Rajesh Tadeo MD. December 28, 2021 2:52 PM. Hortencia Dexter Ma documented in this encounter [facility] 12-26-2021 Miscellaneous Notes Order filed. David Kline APRN.MARS Please place order for standing order PT/INR. Order is in but PSS not able to access through active order tab. Mini Garcia Ma documented in this encounter [facility] 11-29-2021 Miscellaneous Notes Pt Racquel notified. He is actually taking Prilosec [address] Lundy, started by Dr. Lundy. Mini Garcia Ma Pepcid (famotidine) is OK to take with the coumadin Rajesh Tadeo MD Pt. calling. Wants to know what pt can take for acid reflux? States pt is on Coumadin and thinks there is a contraindication to some reflux medications that pt should be aware of? Please advise and call pt. Mary Evans RN documented in this encounter [facility] 11-28-2021 Miscellaneous Notes Message received from PCP team that pt had INR done and resulted at [facility] today 11/28/21. INR results 3.4. [facility] Ambulatory Pharmacy Anticoagulation Clinic Anticoagulation Episode Summary Anticoagulation Care Providers Provider Role Specialty Phone number Rjaesh Tadeo MD Referring [facility] [phone] Corwin Paredes is a 65 year old year old male patient being evaluated today for a Telemanagement visit. Patient is currently on the following anticoagulant(s) Warfarin. Labs PT INR (no units) Date Value 11/28/2021 3.4 ([facility]) 04/16/2021 3.5 03/10/2021 3.7 INR (no units) Date Value 10/11/2021 3.9 09/30/2021 3.4 09/29/2021 5.5 Hemoglobin (g/dL) Date Value 02/12/2020 15.0 Hematocrit (%) Date Value 02/12/2020 46.7 Platelet Count (k/uL) Date Value 02/12/2020 259 Creatinine (mg/dL) Date Value 04/16/2021 1.06 02/12/2020 1.14 11/26/2018 1.26 Bilirubin, Total (mg/dL) Date Value 04/16/2021 0.6 ALT (U/L) Date Value 04/16/2021 25 AST (U/L) Date Value 04/16/2021 32 CrCl cannot be calculated (Patient's most recent lab result is older than the maximum 180 days allowed.). ALLERGIES Allergen Reactions Kaxeinr-Osv-Bwk Red* Myalgia Indication for Warfarin: Anticoagulation Episode Summary Current INR goal: 3.0-4.0 Assessment: INR result of 3.4 is therapeutic Plan: Current Warfarin Dosing As of 11/21/2021 Full warfarin instructions: 12 mg every Arlet, Sat; 10 mg all other days Called and spoke to patient/caregiver Advised patient to continue current weekly dose as noted above Next lab INR check scheduled on 12/12/2021 Patient's caregiver verbalizes understanding of the plan. Patient denies need for refills. Yolette Teague RPh Clinical Pharmacist, Pharmacy Anticoagulation Clinic Pharmacy Anticoagulation Clinic Pager: [phone]. Message left on 's vm asking pt to go to lab [place]. Will continue to monitor for results. Patient was due to test INR today. Will continue to monitor for results. documented in this encounter [facility] 11-28-2021 Miscellaneous Notes Will address in 11/21 Encounter Pt had INR done and resulted at [facility] today 11/28/21. INR results 3.4. Routed to pharmacists who handle pt INR. Mini Garcia Ma documented in this encounter [facility] 10-17-2021 Miscellaneous Notes [facility] Ambulatory Pharmacy Anticoagulation Clinic Anticoagulation Episode Summary Anticoagulation Care Providers Provider Role Specialty Phone number Rajesh Tadeo MD Referring [facility] [phone] Corwin Paredes is a 65 year old year old male patient being evaluated today for a Telemanagement visit. Patient is currently on the following anticoagulant(s) Warfarin. Labs PT INR (no units) Date Value 04/16/2021 3.5 03/10/2021 3.7 02/17/2021 2.9 INR (no units) Date Value 10/11/2021 3.9 09/30/2021 3.4 09/29/2021 5.5 CrCl cannot be calculated (Patient's most recent lab result is older than the maximum 180 days allowed.). ALLERGIES Allergen Reactions Csxsyfl-Zan-Bdb Red* Myalgia Indication for Warfarin: salvage determiner (current) use of anticoagulants Anticoagulation Episode Summary Current INR goal: 3.0-4.0 Assessment: INR result of is therapeutic Plan: Current Warfarin Dosing As of 10/10/2021 Warfarin maintenance plan: 12 mg (2 mg x 1 and 10 mg x 1) every Arlet, Sat; 10 mg (10 mg x 1) all other days Called and spoke to patient/caregiver Advised patient to continue current weekly dose as noted above Next INR check due on 11/14/2021 Patient's caregiver verbalizes understanding of the plan. Dudley Schmitz RPh Clinical Pharmacist, Pharmacy Anticoagulation Clinic Pharmacy Anticoagulation Clinic Pager: [phone]. PATIENT CALL Patient's spouse Racquel called call center regarding question and left message. Racquel stated they have not heard anything in regards to INR result from last week. PT INR (no units) Date Value 04/16/2021 3.5 03/10/2021 3.7 02/17/2021 2.9 INR (no units) Date Value 10/11/2021 3.9 09/30/2021 3.4 09/29/2021 5.5 Racquel can be reached at [phone] Isai Kennedy (Chief Investigator) Patient was due to test INR today. Will continue to monitor for results. documented in this encounter [facility] 10-01-2021 Miscellaneous Notes [facility] Ambulatory Pharmacy Anticoagulation Clinic Anticoagulation Episode Summary Anticoagulation Care Providers Provider Role Specialty Phone number Rajesh Tadeo MD Referring [facility] [phone] Corwin Paredes is a 65 year old year old male patient being evaluated today for a Lab INR. Patient is currently on the following anticoagulant(s) Warfarin. Labs PT INR (no units) Date Value 04/16/2021 3.5 03/10/2021 3.7 02/17/2021 2.9 INR (no units) Date Value 09/30/2021 3.4 09/29/2021 5.5 08/25/2021 4.8 Hemoglobin (g/dL) Date Value 02/12/2020 15.0 Hematocrit (%) Date Value 02/12/2020 46.7 Platelet Count (k/uL) Date Value 02/12/2020 259 Creatinine (mg/dL) Date Value 04/16/2021 1.06 02/12/2020 1.14 11/26/2018 1.26 Bilirubin, Total (mg/dL) Date Value 04/16/2021 0.6 ALT (U/L) Date Value 04/16/2021 25 AST (U/L) Date Value 04/16/2021 32 CrCl cannot be calculated (Unknown ideal weight.). ALLERGIES Allergen Reactions Jkrfbyc-Zvm-Uts Red* Myalgia Indication for Warfarin: Anticoagulation Episode Summary Current INR goal: 3.0-4.0 Assessment: INR result of 3.4 is therapeutic Plan: Current Warfarin Dosing As of 10/01/2021 Warfarin maintenance plan: 12 mg (2 mg x 1 and 10 mg x 1) every Arlet, Sat; 10 mg (10 mg x 1) all other days Called and spoke to patient/caregiver Advised patient to decrease total weekly regimen Next lab INR check scheduled on 10/10/2021 Patient verbalizes understanding of the plan. Patient denies need for refills. Yolette Teague RPh Clinical Pharmacist, Pharmacy Anticoagulation Clinic Pharmacy Anticoagulation Clinic Pager: [phone] . documented in this encounter [facility] 09-30-2021 Miscellaneous Notes Lab INR in process. Will place on critical list for weekend f/u. Spoke to and advised he take 5 mg today and we will f/u tonight or tomorrow AM. Corwin Paredes was called, spoke to patient spouse and she will have patient go to the lab later today or tomorrow morning for PT/INR. Ron Edwards RPh Corwin Pavon Lena was called and reminded to test INR today or as soon as possible. Isaura Diaz RPh Patient due to test INR today. Will continue to monitor for results. Em Zuniga RPh documented in this encounter [facility] 09-30-2021 Miscellaneous Notes Noted Rajesh Tadeo MD Patient just came in today for inr. Elevated at 5.5. no complaints. Discussed with . Goal is 3-4 Advised to call if any bleeding issues. Advised to hold coumadin tonight. Recheck inr in am with long weekend coming up and aware documented in this encounter [facility] 08-31-2021 Miscellaneous Notes Called pt's . Advised him to continue his current dose and keep the vitamin K in his diet consistent. His said he sees Dr. Tadeo, he doesn't see Dr. Tolbert. Advised him to get a lab prior to 09/15. Baylee Lancaster PharmD Patient's spouse returned the call. Johana Robledo RN Pharmacy Anticoagulation Clinic [facility] Ambulatory Pharmacy Anticoagulation Clinic Anticoagulation Episode Summary Anticoagulation Care Providers Provider Role Specialty Phone number Rajesh Tadeo MD Referring [facility] [phone] Corwin Paredes is a 65 year old year old male patient being evaluated today for a Lab INR. Patient is currently on the following anticoagulant(s) Warfarin. Labs PT INR (no units) Date Value 04/16/2021 3.5 03/10/2021 3.7 02/17/2021 2.9 INR (no units) Date Value 08/25/2021 4.8 08/11/2021 3.5 08/02/2021 5.6 Hemoglobin (g/dL) Date Value 02/12/2020 15.0 Hematocrit (%) Date Value 02/12/2020 46.7 Platelet Count (k/uL) Date Value 02/12/2020 259 Creatinine (mg/dL) Date Value 04/16/2021 1.06 02/12/2020 1.14 11/26/2018 1.26 Bilirubin, Total (mg/dL) Date Value 04/16/2021 0.6 ALT (U/L) Date Value 04/16/2021 25 AST (U/L) Date Value 04/16/2021 32 Estimated Creatinine Clearance: 84.1 mL/min (based on SCr of 1.06 mg/dL). ALLERGIES Allergen Reactions Fajsznx-Vkp-Dzq Red* Myalgia Indication for Warfarin: group home current use of anticoagulant therapy Chronic atrial fibrillation (hcc) History of aortic valve replacement Anticoagulation Episode Summary Current INR goal: 3.0-4.0 Assessment: INR result of 4.8 is SUPRAtherapeutic due to: unknown cause - did not speak to patient The lab INR last week was routed to Dr. Tolbert instead of us. I cancelled 2 out of [address] Tolbert entered and placed another so it can be routed to us. Plan: Left voice message Advised patient to continue current weekly dose Next lab INR check scheduled on 09/07/2021 Asked them to call back and also in the future to call us if they went to the lab and do NOT hear from us within a few hours. Baylee Lancaster RPh Clinical Pharmacist, Pharmacy Anticoagulation Clinic Pharmacy Anticoagulation Clinic Pager: [phone] . Patient's spouse left a VM advising patient had labs drawn on 08/25/21 that may not have been routed to PAC. PT INR (no units) Date Value 04/16/2021 3.5 03/10/2021 3.7 02/17/2021 2.9 INR (no units) Date Value 08/25/2021 4.8 08/11/2021 3.5 08/02/2021 5.6 Patient's spouse can be reached at [phone]. Johana Robledo RN Pharmacy Anticoagulation Clinic Corwin Paredes was called and reminded to test INR today or as soon as possible. Genna Maria RPh documented in this encounter [facility] 08-02-2021 Miscellaneous Notes [facility] Ambulatory Pharmacy Anticoagulation Clinic Anticoagulation Episode Summary Anticoagulation Care Providers Provider Role Specialty Phone number Rajesh Tadeo MD Referring [facility] [phone] Corwin Paredes is a 65 year old year old male patient being evaluated today for a Telemanagement visit. Patient is currently on the following anticoagulant(s) Warfarin. Labs PT INR (no units) Date Value 04/16/2021 3.5 03/10/2021 3.7 02/17/2021 2.9 INR (no units) Date Value 08/02/2021 5.6 06/20/2021 4.0 Hemoglobin (g/dL) Date Value 02/12/2020 15.0 Hematocrit (%) Date Value 02/12/2020 46.7 Platelet Count (k/uL) Date Value 02/12/2020 259 Creatinine (mg/dL) Date Value 04/16/2021 1.06 02/12/2020 1.14 11/26/2018 1.26 Bilirubin, Total (mg/dL) Date Value 04/16/2021 0.6 ALT (U/L) Date Value 04/16/2021 25 AST (U/L) Date Value 04/16/2021 32 Estimated Creatinine Clearance: 84.1 mL/min (based on SCr of 1.06 mg/dL). ALLERGIES Allergen Reactions Qihhsxq-Ayu-Eec Red* Myalgia Indication for Warfarin: Chronic atrial fibrillation (hcc) group home current use of anticoagulant therapy Anticoagulation Episode Summary Current INR goal: 3.0-4.0 Assessment: INR result of 5.6 is SUPRAtherapeutic due to: NVD/fevers Patient is just getting over stomach flu Plan: Called and spoke to patient/caregiver - , Racquel Advised patient to hold 1 dose then continue current regimen Advised patient to increase intake of Vitamin K rich foods x 2 days. Next lab INR check scheduled on 08/09/2021 Patient's caregiver verbalizes understanding of the plan. Patient denies need for refills. Den West RPh Clinical Pharmacist, Pharmacy Anticoagulation Clinic Pharmacy Anticoagulation Clinic Pager: [phone] . Received a page from lab client services (reference #[id number]) with patient's INR result today: PT INR (no units) Date Value 04/16/2021 3.5 03/10/2021 3.7 02/17/2021 2.9 INR (no units) Date Value 08/02/2021 5.6 06/20/2021 4.0 Johana Robledo RN Pharmacy Anticoagulation Clinic documented in this encounter [facility] 08-02-2021 Miscellaneous Notes [facility] Ambulatory Pharmacy Anticoagulation Clinic Anticoagulation Episode Summary Anticoagulation Care Providers Provider Role Specialty Phone number Rajesh Tadeo MD Referring [facility] [phone] Corwin Paredes is a 65 year old year old male patient being evaluated today for a Lab INR. Patient is currently on the following anticoagulant(s) Warfarin. Labs PT INR (no units) Date Value 04/16/2021 3.5 03/10/2021 3.7 02/17/2021 2.9 INR (no units) Date Value 08/02/2021 5.6 06/20/2021 4.0 Hemoglobin (g/dL) Date Value 02/12/2020 15.0 Hematocrit (%) Date Value 02/12/2020 46.7 Platelet Count (k/uL) Date Value 02/12/2020 259 Creatinine (mg/dL) Date Value 04/16/2021 1.06 02/12/2020 1.14 11/26/2018 1.26 Bilirubin, Total (mg/dL) Date Value 04/16/2021 0.6 ALT (U/L) Date Value 04/16/2021 25 AST (U/L) Date Value 04/16/2021 32 Estimated Creatinine Clearance: 84.1 mL/min (based on SCr of 1.06 mg/dL). ALLERGIES Allergen Reactions Iekjhtl-Gez-Jff Red* Myalgia Indication for Warfarin: Chronic atrial fibrillation (hcc) salvage determiner current use of anticoagulant therapy Anticoagulation Episode Summary Current INR goal: 3.0-4.0 Assessment: INR result of 5.6 is SUPRAtherapeutic due to: NVD/fevers Patient is just getting over the stomach flu Patient's states no issues with bruising/bleeding. Plan: Called and spoke to patient/caregiver - , Racquel Advised patient to hold 1 dose then continue current regimen Advised patient to increase intake of Vitamin K rich foods x 2 days Next lab INR check scheduled on 08/09/2021 Patient's caregiver verbalizes understanding of the plan. Patient denies need for refills. Den West RPh Clinical Pharmacist, Pharmacy Anticoagulation Clinic Pharmacy Anticoagulation Clinic Pager: [phone] . Corwin Thomasman was called and a voicemail message was left reminding to test INR today or as soon as possible Den West RPh Patient due to test INR today. Will continue to monitor for results. Genna Maria RPh documented in this encounter [facility] 07-27-2021 Miscellaneous Notes Updated anticoag navigator; target INR range to remain 3.0-4.0. Johana Robledo RN Pharmacy Anticoagulation Clinic Thank you. Yes, his INR target is 3.0-4.0. I placed a new order with the correct range. Rajesh Tadeo MD Dr. Tadeo: Patient's previous target INR range was 3.0-4.0. Current referral indicates a target INR range of 2.0-3.0. Please advise on the preferred target INR range. Thank you, Johana Robledo RN Pharmacy Anticoagulation Clinic Updated anticoag navigator. Johana Robledo RN Pharmacy Anticoagulation Clinic Order filed; thanks Rajesh Tadeo MD Corwin Ambrose Dr. Librado Paredes [id number] was originally referred to the Pharmacy Anticoagulation Clinic by Dr. Dillon who is no longer involved in the patient s care. It appears that you are the [facility] physician most involved in the patient's care. Would you agree to serve as referring physician for our ongoing anticoagulation follow up? If yes then please place a new referral to Anticoagulation/Coumadin Clinic Pharm (order #[id number].) Thank you, Genna Maria RPh documented in this encounter [facility] 07-08-2021 Miscellaneous Notes The following approved medication requests have been transmitted electronically. Signed Prescriptions Disp Refills warfarin (COUMADIN) 10 mg tablet 30 tablet 11 Sig: TAKE 12MG DAILY OR DIRECTED BY ANTICOAGULATION CLINIC (PT ALSO HAS 2MG TABLET). TRE: No Authorizing Provider: RAJESH TADEO Cma OK to refill as ordered Rajesh Tadeo MD Patient has been identified by name and date of : Yes Pending Prescriptions Disp Refills WARFARIN 10 MG TABLET 30 tablet 11 Sig: TAKE 12MG DAILY OR DIRECTED BY ANTICOAGULATION CLINIC (PT ALSO HAS 2MG TABLET). TRE: No RX INSTRUCTIONS: Patient aware RX will be sent to pharmacy. No need to notify patient. Anneliese Salas MA Nii: 05/2021 Nov: 12/2021 Last refill: 07/2020 Last INR: 06/20/2021 documented in this encounter [facility] 06-29-2021 Miscellaneous Notes Patient seen in office 06/22/21 2nd attempt to contact patient Left message on spouse voicemail Domi Alexis Ma Reviewed phone note from 05/23 patient d/c from pharmacy for coumadin. Left message with spouse please verify what dosage regiment for coumadin he is doing and if any taken today? Last INR: INR (POCT) 4.0 06/20/2021 Current dose of coumadin is: Last date of dose change: Previous INR (date and result): Domi Alexis Ma documented in this encounter [facility] 06-22-2021 History of Presen t illness Narrative Chief Complaint Patient presents with: Establish Care HPI Corwin Paredes is a 65 year old male who presents here today to Establish. Former pt of Dr. Dillon and Dr. Tolbert, would like to transfer care to this office. Pt's spouse, Racquel states her father is a pt of this office and would like to have him get his care here. Recently retired. Pt is hearing impaired and reads lips. Deaf since age 3. Uro - Follows with Dr. Pleitez for elevated PSA and hx of prostate biopsies that were negative. Denies urinary symptoms. Afib/Cardiac - On current regimen of Warfarin and having INR monitored by primary care. Pt has f/u with Dr. Landry for hx of a-fib and s/p AVR in 1989. Denies chest pain, SOB or dizziness. Lipids - Pt on current regimen of Crestor 5 mg 3 days per week, unable to tolerate taking medication daily. Overall eats healthy, but could cut back on sweets. Exercises on treadmill. 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 Past medical history, appointments, medications, allergies reviewed. 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 0 hearing in left ear, 25% in right Elevated PSA 10/20/2010 Dr. Pleitez S/P AVR [address] Osei. INR 3-4 Sigmoid diverticulitis Venous insufficiency of leg 08/01/2012 Previous Surgical History PAST SURGICAL HISTORY Procedure Laterality Date COLONOSCOPY 02/08/2018 done at [facility] with MAC by Dr. Blake Dillon L'SCOPE CHOLECYSTECTOMY N/A [facility]--Reba Dillon PERCUTANEOUS AORTIC VALVE REPLACEMENT Family History FAMILY HISTORY Problem Relation Age of Onset Heart disease Mother Parkinson s Disease Father Prostate Cancer Brother Heart Attack Paternal Uncle No Known Problems Son No Known Problems Son Patient Allergies ALLERGIES Allergen Reactions Ciuocis-Isy-Btb Red* Myalgia Current Medications Current Outpatient Medications on File Prior to Visit Medication Sig warfarin (COUMADIN) 2 mg tablet 12 mg daily rosuvastatin (CRESTOR) 5 mg tablet Take 1 tablet by mouth three times a week. After supper or bedtime Sunday, Sunday and Sunday warfarin (COUMADIN) 10 mg tablet Take 12mg daily or as directed by Anticoagulation Clinic (pt also has 2mg tablet). acetaminophen (TYLENOL 8 HOUR ORAL) Take by mouth. No current facility-administered medications on file prior to visit. Social History Social History Tobacco Use Smoking status: Never Smoker Smokeless tobacco: Never Used Substance Use Topics Alcohol use: No Drug use: No EXAM: BP 114/68 (BP Site: Right Arm, BP Position: Sitting, BP Cuff Size: Regular Adult) Pulse 64 Resp 16 Wt 99.4 kg (219 lb 3.2 oz) BMI 30.18 kg/m General Appearance: Well appearing, alert, in no acute distress, well-hydrated, well nourished.. Lungs: Lungs clear to auscultation. No wheezing, rhonchi, rales.. Heart: RRR without murmur, gallop, or rubs. No ectopy. Health Maintenance List ADVANCE DIRECTIVE DISCUSSION Never done COVID-19 VACCINE(1) due on 09/08/2021 INFLUENZA(1) due on 09/29/2021 HEPATITIS C SCREENING due on 03/11/2022 PNEUMOVAX AGE 65 AND OVER WITH 5YR LOOKBACK(1) due on 03/11/2022 HIV SCREENING due on 03/11/2022 SHINGRIX VACCINE(1 of 2) due on 03/11/2022 DEPRESSION SCREENING due on 09/08/2021 DIABETES SCREEN due on 04/16/2024 PROSTATE CANCER SCREENING DISCUSSION due on 02/11/2025 LIPID SCREEN due on 04/16/2026 COLORECTAL CANCER SCREENING due on 02/09/2028 DTAP,TDAP,TD(3 - Td or Tdap) due on 09/08/2030 MENINGOCOCCAL CONJUGATE Aged Out Data reviewed Appointment on 06/20/2021 Component Date Value PT Sec 06/20/2021 39.7 (A) INR 06/20/2021 4.0 (A) ASSESSMENT/PLAN: 1. Chronic atrial fibrillation (HCC) - ICD9: 427.31, ICD10: I48.20 (primary diagnosis) Stable 2. Other hyperlipidemia - ICD9: 272.4, ICD10: E78.49 Check labs in 6 months - LIPID PANEL BASIC - COMP METABOLIC PANEL 3. History of aortic valve replacement - ICD9: V43.3, ICD10: Z95.2 Follow with Cardiology Maintain INR 3-4 4. Elevated PSA - ICD9: 790.93, ICD10: R97.[address] Pleitez 5. Atrial fibrillation, unspecified type (HCC) - ICD9: 427.31, ICD10: I48.91 - WARFARIN 2 MG TABLET Follow up in 6 months Medical Decision Making: Problems: Moderate: 2+ stable chronic illnesses Data: Unique test result(s) reviewed: 1 Unique test(s) ordered: 2 Risk: Moderate: Drug management Medical Decision Making Level: 4 - Moderate Rajesh Tadeo MD documented in this encounter [facility] 06-21-2021 Miscellaneous Notes OK with appt as scheduled Rajesh Tadeo MD Patient's spouse Racquel calling to make yearly appt for patient. Spouse states her father is a patient of Dr. Tadeo's and states Dr. Tadeo said he will accept [place] as his patient. Patient prefers to be cared for by Dr. Tadeo and not current provider, if agreeable. Patient was initially patient of Dr. Dereje Dillon. Appt made with Dr. Tadeo for 06/22/21. Please contact spouse if Dr. Tadeo does not agree. Thank you. documented in this encounter [facility] 06-18-2021 Miscellaneous Notes Left a message for pt to call the office and ask to speak to a triage nurse. Cailin Avilez LPN Letter sent to patient to contact our office. Detailed message left on spouse's secure VM requesting return call to update PCP on what's going on with PT/INR. Patient telephoned. Message left on number provided (spouses cell phone) to call back for update. Nita Fabian LPN Pharmacy will no longer be following up with patient. Please attempt to call him to come in for INR so we can monitor his levels. DISCHARGE No return call from patient. Letter sent. FINAL ATTEMPT letter sent at this time. If no response from patient within 3 weeks patient will be discharged from PAC at that time. Will also route to PCP as FYI (since it appears patient's referring is no longer with [facility]) and to see if office can assist in reaching patient. Esthela Medina CPhT (Child And Family Services Worker) [facility]acy [facility] Added to discharge list. [facility]win Paredes was called and reminded to test INR today or as soon as possible. Patient was due to test INR today. Will continue to monitor for results. documented in this encounter [facility] Diagnosis Chronic atrial fibrillation (HCC)- Primary Atrial fibrillation group home current use of anticoagulant therapy Long-term (current) use of anticoagulants History of aortic valve replacement Heart valve replaced by other means [facility] 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 Long-term (current) use of anticoagulants Chronic atrial fibrillation (HCC) Atrial fibrillation [facility] current use of anticoagulant therapy- Primary Long-term (current) use of anticoagulants Chronic atrial fibrillation (HCC) Atrial fibrillation [facility] Diagnosis group home current use of anticoagulant therapy- Primary Long-term (current) use of anticoagulants Chronic atrial fibrillation (HCC) Atrial fibrillation History of aortic valve replacement Heart valve replaced by other means [facility] Diagnosis History of aortic valve replacement- Primary Heart valve replaced by other means [facility] Diagnosis salvage determiner (current) use of anticoagulants- Primary Long-term (current) use of anticoagulants [facility]* 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 Long-term (current) use of anticoagulants [facility]* 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 Long-term (current) use of anticoagulants Atrial fibrillation, unspecified type (HCC) [facility] Diagnosis Atrial fibrillation, unspecified type (HCC)- Primary [facility] Diagnosis Atrial fibrillation, unspecified type (HCC)- Primary History of aortic valve replacement Heart valve replaced by other means Other hyperlipidemia GERD without esophagitis Esophageal reflux Strain of right hamstring, initial encounter [facility]* Diagnosis Atrial fibrillation, unspecified type (HCC) [facility]* 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 Long-term (current) use of anticoagulants Atrial fibrillation, unspecified type (HCC) [facility]* Diagnosis Atrial fibrillation, unspecified type (HCC)- Primary S/P AVR (aortic valve replacement) Heart valve replaced by other means H/O heart valve replacement with mechanical valve Heart valve replaced by other means Other hyperlipidemia Hyperlipidemia with target LDL less than 100 Other and unspecified hyperlipidemia Diastolic dysfunction Heart disease, unspecified Obesity (BMI 30.0-34.9) Obesity, unspecified [facility] Diagnosis Atrial fibrillation, unspecified type (HCC) [facility]* Diagnosis S/P AVR (aortic valve replacement) Heart valve replaced by other means H/O heart valve replacement with mechanical valve Heart valve replaced by other means [facility] Diagnosis group home current use of anticoagulant therapy- Primary Long-term (current) use of anticoagulants Atrial fibrillation, unspecified type (HCC) [facility]* 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 Long-term (current) use of anticoagulants Atrial fibrillation, unspecified type (HCC) [facility]* Diagnosis Atrial fibrillation, unspecified type (HCC)- Primary Other hyperlipidemia Bilateral hearing loss, unspecified hearing loss type Elevated PSA Elevated prostate specific antigen (PSA) History of aortic valve replacement Heart valve replaced by other means [facility]* Diagnosis salvage determiner (current) use of anticoagulants- Primary Long-term (current) use of anticoagulants [facility]* Diagnosis group home (current) use of anticoagulants- Primary Long-term (current) use of anticoagulants [facility]* 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 Long-term (current) use of anticoagulants Atrial fibrillation, unspecified type (HCC) [facility]* Diagnosis History of aortic valve replacement- Primary Heart valve replaced by other means Other hyperlipidemia documented in this encounter [facility] note* Diagnosis group home current use of anticoagulant therapy- Primary Long-term (current) use of anticoagulants documented in this encounter [facility] note* Diagnosis group home current use of anticoagulant therapy- Primary Long-term (current) use of anticoagulants documented in this encounter [facility] note* Diagnosis H/O heart valve replacement with mechanical valve- Primary Heart valve replaced by other means documented in this encounter [facility] note* 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 Long-term (current) use of anticoagulants documented in this encounter [facility] note* 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 Long-term (current) use of anticoagulants documented in this encounter [facility] note* Diagnosis Hyperlipidemia with target LDL less than 100 Other and unspecified hyperlipidemia documented in this encounter [facility] for referral (narrative)* Outpatient Procedure (Routine) - Authorized Specialty Diagnoses / Procedures Referred By Emily pond Referred To Contact [facility] Diagnoses S/P AVR (aortic valve replacement) H/O heart valve replacement with mechanical valve Procedures ECHO ECHO TTHRC R-T 2D W/WOM-MODE COMPL SPEC&COLR D Sarah Bentley APRN.CNP [address] [place] [id number] [facility] [place] [address] [place] [address] Referral ID Status Reason Start Date Expiration Date Visits Requested Visits Authorized [id number] Authorized Auto-Generat ed Referral 2 02/13/2023 1 1 * Outpatient Procedure (Routine) - Closed Specialty Diagnoses / Procedures Referred By Emily pond Referred To Contact [facility] Diagnoses Atrial fibrillation, unspecified type (HCC) Procedures ECG COMPLETE ECG ROUTINE ECG W/LEAST 12 LDS W/I&R Sarah Bentley APRN.CNP [address] [place] [address] [facility] [place] [address] Referral ID Status Reason Start Date Expiration Date V isits Requested Visits Authorized [id number] Closed Auto-Generate d Referral 02/07/2022 02/07/2023 1 1 [facility] for visit Narrative* Outpatient Procedure (Routine) - Closed Specialty Diagnoses / Procedures Referred By Contac t Referred [facility] Diagnoses S/P AVR (aortic valve replacement) H/O heart valve replacement with mechanical valve Procedures ECHO ECHO TTHRC R-T 2D W/WOM-MODE COMPL SPEC&COLR D Sarah Bentley APRN.CNP [address] [place] [address] [facility] [place] [address] [place] [address] Referral ID Status Reason Start Date Expiration Date V isits Requested Visits Authorized [id number] Closed Auto-Generate d Referral 02/13/2022 02/13/2023 1 1 [facility] Summary Purpose Family History No Family History Records FoundNo Family History Records FoundNo Family History Records FoundNo Family History Records Found Advance Directives No Advanced Directives Records FoundNo Advanced Directives Records FoundNo Advanced Directives Records FoundNo Advanced Directives Records Found Additional Source Comments (unrecognized sect ion and content) No Status Records FoundNo Status Records FoundNo Status Records FoundNo Status Records Found INFORMATION SOURCE (unrecogn ized section and content) DATE CREATED AUTHOR AUTHOR'S ORGANIZ ATION 09/24/[address] [facility] DATE CREATED AUTHOR AUTHOR'S ORGANIZ ATION 09/25/2017 [facility] DATE CREATED AUTHOR AUTHOR'S ORGANIZ ATION 04/19/2023 [facility] Source Comments (unrecognize d section and content) In the event this informatio n is protected by the Federal Confidentiality of Alcohol and Drug Abuse Patient Records regulations: The Federal rules restrict any use of the information to criminally investigate or prosecute any alcohol or drug abuse patient.[facility] the event this information is protected by the Federal Confidentiality of Alcohol and Drug Abuse Patient Records regulations: The Federal rules restrict any use of the information to criminally investigate or prosecute any alcohol or drug abuse patient.[facility] the event this information is protected by the Federal Confidentiality of Alcohol and Drug Abuse Patient Records regulations: The Federal rules restrict any use of the information to criminally investigate or prosecute any alcohol or drug abuse patient.[facility] the event this information is protected by the Federal Confidentiality of Alcohol and Drug Abuse Patient Records regulations: The Federal rules restrict any use of the information to criminally investigate or prosecute any alcohol or drug abuse patient.[facility] the event this information is protected by the Federal Confidentiality of Alcohol and Drug Abuse Patient Records regulations: The Federal rules restrict any use of the information to criminally investigate or prosecute any alcohol or drug abuse patient.[facility] the event this information is protected by the Federal Confidentiality of Alcohol and Drug Abuse Patient Records regulations: The Federal rules restrict any use of the information to criminally investigate or prosecute any alcohol or drug abuse patient.[facility] the event this information is protected by the Federal Confidentiality of Alcohol and Drug Abuse Patient Records regulations: The Federal rules restrict any use of the information to criminally investigate or prosecute any alcohol or drug abuse patient.[facility] the event this information is protected by the Federal Confidentiality of Alcohol and Drug Abuse Patient Records regulations: The Federal rules restrict any use of the information to criminally investigate or prosecute any alcohol or drug abuse patient.[facility] the event this information is protected by the Federal Confidentiality of Alcohol and Drug Abuse Patient Records regulations: The Federal rules restrict any use of the information to criminally investigate or prosecute any alcohol or drug abuse patient.[facility] the event this information is protected by the Federal Confidentiality of Alcohol and Drug Abuse Patient Records regulations: The Federal rules restrict any use of the information to criminally investigate or prosecute any alcohol or drug abuse patient.[facility] the event this information is protected by the Federal Confidentiality of Alcohol and Drug Abuse Patient Records regulations: The Federal rules restrict any use of the information to criminally investigate or prosecute any alcohol or drug abuse patient.[facility] the event this information is protected by the Federal Confidentiality of Alcohol and Drug Abuse Patient Records regulations: The Federal rules restrict any use of the information to criminally investigate or prosecute any alcohol or drug abuse patient.[facility] the event this information is protected by the Federal Confidentiality of Alcohol and Drug Abuse Patient Records regulations: The Federal rules restrict any use of the information to criminally investigate or prosecute any alcohol or drug abuse patient.[facility] the event this information is protected by the Federal Confidentiality of Alcohol and Drug Abuse Patient Records regulations: The Federal rules restrict any use of the information to criminally investigate or prosecute any alcohol or drug abuse patient.[facility] the event this information is protected by the Federal Confidentiality of Alcohol and Drug Abuse Patient Records regulations: The Federal rules restrict any use of the information to criminally investigate or prosecute any alcohol or drug abuse patient.[facility] Hospital[facility] the event this information is protected by the Federal Confidentiality of Alcohol and Drug Abuse Patient Records regulations: The Federal rules restrict any use of the information to criminally investigate or prosecute any alcohol or drug abuse patient.[facility] the event this information is protected by the Federal Confidentiality of Alcohol and Drug Abuse Patient Records regulations: The Federal rules restrict any use of the information to criminally investigate or prosecute any alcohol or drug abuse patient.[facility] HospitalIn the event this information is protected by the Federal Confidentiality of Alcohol and Drug Abuse Patient Records regulations: The Federal rules restrict any use of the information to criminally investigate or prosecute any alcohol or drug abuse patient.[facility] HospitalIn the event this information is protected by the Federal Confidentiality of Alcohol and Drug Abuse Patient Records regulations: The Federal rules restrict any use of the information to criminally investigate or prosecute any alcohol or drug abuse patient.[facility] HospitalIn the event this information is protected by the Federal Confidentiality of Alcohol and Drug Abuse Patient Records regulations: The Federal rules restrict any use of the information to criminally investigate or prosecute any alcohol or drug abuse patient.[facility] HospitalIn the event this information is protected by the Federal Confidentiality of Alcohol and Drug Abuse Patient Records regulations: The Federal rules restrict any use of the information to criminally investigate or prosecute any alcohol or drug abuse patient.[facility] HospitalIn the event this information is protected by the Federal Confidentiality of Alcohol and Drug Abuse Patient Records regulations: The Federal rules restrict any use of the information to criminally investigate or prosecute any alcohol or drug abuse patient.[facility] the event this information is protected by the Federal Confidentiality of Alcohol and Drug Abuse Patient Records regulations: The Federal rules restrict any use of the information to criminally investigate or prosecute any alcohol or drug abuse patient.[facility] the event this information is protected by the Federal Confidentiality of Alcohol and Drug Abuse Patient Records regulations: The Federal rules restrict any use of the information to criminally investigate or prosecute any alcohol or drug abuse patient.[facility] the event this information is protected by the Federal Confidentiality of Alcohol and Drug Abuse Patient Records regulations: The Federal rules restrict any use of the information to criminally investigate or prosecute any alcohol or drug abuse patient.[facility] the event this information is protected by the Federal Confidentiality of Alcohol and Drug Abuse Patient Records regulations: The Federal rules restrict any use of the information to criminally investigate or prosecute any alcohol or drug abuse patient.[facility] the event this information is protected by the Federal Confidentiality of Alcohol and Drug Abuse Patient Records regulations: The Federal rules restrict any use of the information to criminally investigate or prosecute any alcohol or drug abuse patient.[facility] the event this information is protected by the Federal Confidentiality of Alcohol and Drug Abuse Patient Records regulations: The Federal rules restrict any use of the information to criminally investigate or prosecute any alcohol or drug abuse patient.[facility] the event this information is protected by the Federal Confidentiality of Alcohol and Drug Abuse Patient Records regulations: The Federal rules restrict any use of the information to criminally investigate or prosecute any alcohol or drug abuse patient.[facility]In the event this information is protected by the Federal Confidentiality of Alcohol and Drug Abuse Patient Records regulations: The Federal rules restrict any use of the information to criminally investigate or prosecute any alcohol or drug abuse patient.[facility] the event this information is protected by the Federal Confidentiality of Alcohol and Drug Abuse Patient Records regulations: The Federal rules restrict any use of the information to criminally investigate or prosecute any alcohol or drug abuse patient.[facility] the event this information is protected by the Federal Confidentiality of Alcohol and Drug Abuse Patient Records regulations: The Federal rules restrict any use of the information to criminally investigate or prosecute any alcohol or drug abuse patient.[facility] HospitalIn the event this information is protected by the Federal Confidentiality of Alcohol and Drug Abuse Patient Records regulations: The Federal rules restrict any use of the information to criminally investigate or prosecute any alcohol or drug abuse patient.[facility] HospitalIn the event this information is protected by the Federal Confidentiality of Alcohol and Drug Abuse Patient Records regulations: The Federal rules restrict any use of the information to criminally investigate or prosecute any alcohol or drug abuse patient.[facility] HospitalIn the event this information is protected by the Federal Confidentiality of Alcohol and Drug Abuse Patient Records regulations: The Federal rules restrict any use of the information to criminally investigate or prosecute any alcohol or drug abuse patient.[facility] HospitalIn the event this information is protected by the Federal Confidentiality of Alcohol and Drug Abuse Patient Records regulations: The Federal rules restrict any use of the information to criminally investigate or prosecute any alcohol or drug abuse patient.[facility] HospitalIn the event this information is protected by the Federal Confidentiality of Alcohol and Drug Abuse Patient Records regulations: The Federal rules restrict any use of the information to criminally investigate or prosecute any alcohol or drug abuse patient.[facility] HospitalIn the event this information is protected by the Federal Confidentiality of Alcohol and Drug Abuse Patient Records regulations: The Federal rules restrict any use of the information to criminally investigate or prosecute any alcohol or drug abuse patient.[facility] HospitalIn the event this information is protected by the Federal Confidentiality of Alcohol and Drug Abuse Patient Records regulations: The Federal rules restrict any use of the information to criminally investigate or prosecute any alcohol or drug abuse patient.[facility] HospitalIn the event this information is protected by the Federal Confidentiality of Alcohol and Drug Abuse Patient Records regulations: The Federal rules restrict any use of the information to criminally investigate or prosecute any alcohol or drug abuse patient.[facility] HospitalIn the event this information is protected by the Federal Confidentiality of Alcohol and Drug Abuse Patient Records regulations: The Federal rules restrict any use of the information to criminally investigate or prosecute any alcohol or drug abuse patient.[facility] [facility] Hospital[facility] the event this information is protected by the Federal Confidentiality of Alcohol and Drug Abuse Patient Records regulations: The Federal rules restrict any use of the information to criminally investigate or prosecute any alcohol or drug abuse patient.[facility] HospitalIn the event this information is protected by the Federal Confidentiality of Alcohol and Drug Abuse Patient Records regulations: The Federal rules restrict any use of the information to criminally investigate or prosecute any alcohol or drug abuse patient.[facility] HospitalIn the event this information is protected by the Federal Confidentiality of Alcohol and Drug Abuse Patient Records regulations: The Federal rules restrict any use of the information to criminally investigate or prosecute any alcohol or drug abuse patient.[facility] HospitalIn the event this information is protected by the Federal Confidentiality of Alcohol and Drug Abuse Patient Records regulations: The Federal rules restrict any use of the information to criminally investigate or prosecute any alcohol or drug abuse patient.[facility] HospitalIn the event this information is protected by the Federal Confidentiality of Alcohol and Drug Abuse Patient Records regulations: The Federal rules restrict any use of the information to criminally investigate or prosecute any alcohol or drug abuse patient.[facility] HospitalIn the event this information is protected by the Federal Confidentiality of Alcohol and Drug Abuse Patient Records regulations: The Federal rules restrict any use of the information to criminally investigate or prosecute any alcohol or drug abuse patient.[facility] HospitalIn the event this information is protected by the Federal Confidentiality of Alcohol and Drug Abuse Patient Records regulations: The Federal rules restrict any use of the information to criminally investigate or prosecute any alcohol or drug abuse patient.[facility] HospitalIn the event this information is protected by the Federal Confidentiality of Alcohol and Drug Abuse Patient Records regulations: The Federal rules restrict any use of the information to criminally investigate or prosecute any alcohol or drug abuse patient.[facility] HospitalIn the event this information is protected by the Federal Confidentiality of Alcohol and Drug Abuse Patient Records regulations: The Federal rules restrict any use of the information to criminally investigate or prosecute any alcohol or drug abuse patient.[facility] HospitalIn the event this information is protected by the Federal Confidentiality of Alcohol and Drug Abuse Patient Records regulations: The Federal rules restrict any use of the information to criminally investigate or prosecute any alcohol or drug abuse patient.[facility] HospitalIn the event this information is protected by the Federal Confidentiality of Alcohol and Drug Abuse Patient Records regulations: The Federal rules restrict any use of the information to criminally investigate or prosecute any alcohol or drug abuse patient.[facility] HospitalIn the event this information is protected by the Federal Confidentiality of Alcohol and Drug Abuse Patient Records regulations: The Federal rules restrict any use of the information to criminally investigate or prosecute any alcohol or drug abuse patient.[facility] HospitalIn the event this information is protected by the Federal Confidentiality of Alcohol and Drug Abuse Patient Records regulations: The Federal rules restrict any use of the information to criminally investigate or prosecute any alcohol or drug abuse patient.[facility] HospitalIn the event this information is protected by the Federal Confidentiality of Alcohol and Drug Abuse Patient Records regulations: The Federal rules restrict any use of the information to criminally investigate or prosecute any alcohol or drug abuse patient.[facility] Reason for Visit (unrecogniz ed section and content) Reason Comments Establish Care Reason Comments Anticoagulation Reason Comments Refill Request Reason Comments Referral Update Reason Comments Anticoagulation Telephone Fu Lab INR res ult Reason Comments Anticoagulation Telephone Fu Reason Onset Date Comments Anticoagulation 10/10/2021 INR result expec altagracia Reason Onset Date Comments Anticoagulation 05/23/2021 INR result expec altagracia Reason Onset Date Comments Anticoagulation 07/04/2021 Reason Comments Anticoagulation Telephone Fu INR due Reason Onset Date Comments Anticoagulation 11/21/2021 INR result Reason Comments Medication Problem Reason Comments Orders Reason Comments F/U 6 Month Reason Comments Results Reason Comments New Reason Comments Anticoagulation Telephone Fu Lab INR Reason Comments 6 Month Exam Reason Comments Anticoagulation Telephone Fu INR Lab Res ult Reason Comments Follow Up Reason Onset Date Comments Anticoagulation Telephone Fu 09/21/2022 Lab INR Reason Onset Date Comments Anticoagulation Telephone Fu 10/19/2022 Lab INR Reason Onset Date Comments Refill Request 10/19/2022 Reason Onset Date Comments Anticoagulation Telephone Fu 11/23/2022 .ch la Reason Onset Date Comments Anticoagulation Telephone Fu 12/01/2022 Lab INR Reason Comments Patient Update Reason Onset Date Comments Anticoagulation Telephone Fu 01/22/2023 Lab INR Result Reason Comments Anticoagulation Telephone Fu Home INR re sult Reason Comments Anticoagulation Telephone Fu Lab INR res ult Care Teams (unrecognized sec tion and content) Improvement Analyst Relationship Specialty Start Date End Date Rajesh Tadeo MD [address] [place], [place] [id number] PCP - General Family Practice 06/22/21 13, Pharmacist [id number] [place], [place] [id number] Pharmacist Pharmacy 11/05/19 Improvement Analyst Relationship Specialty Start Date End Date Tod Tolbert MD [address] [place], [place] [id number] PCP - General Family Practice 09/16/20 06/21/21 Rajesh Tadeo MD [address] [place] [address] PCP - General Family Practice 06/22/21 13, Pharmacist [id number] [facility] [place] [address] Pharmacist Pharmacy 11/05/19 Improvement Analyst Relationship Specialty Start Date End Date Rajesh Tadeo MD [address] [place] [address] PCP - General Family Practice 06/22/21 13, Pharmacist [id number] [place] [address] Pharmacist Pharmacy 11/05/19 Improvement Analyst Relationship Specialty Start Date End Date Rajesh Tadeo MD [address] [place] [address] PCP - General Family Practice 06/22/21 13, Pharmacist [id number] [place] [address] Pharmacist Pharmacy 11/05/19 Improvement Analyst Relationship Specialty Start Date End Date Rajesh Tadeo MD [address] [place] [address] PCP - General Family Practice 06/22/21 13, Pharmacist [phone] [place] [address] Pharmacist Pharmacy 11/05/19 Improvement Analyst Relationship Specialty Start Date End Date Rajesh Tadeo MD [address] [place] [address] PCP - General Family Practice 06/22/21 13, Pharmacist [id number] [place] [address] Pharmacist Pharmacy 11/05/19 Improvement Analyst Relationship Specialty Start Date End Date Rajesh Tadeo MD [address] [place] [address] PCP - General Family Practice 06/22/21 13, Pharmacist [id number] [place] [address] Pharmacist Pharmacy 11/05/19 Improvement Analyst Relationship Specialty Start Date End Date Tod Tolbert MD [address] [place] [address] PCP - General Family Practice 09/16/20 06/21/21 Rajesh Tadeo MD [address] [place] [address] PCP - General Family Practice 06/22/21 13, Pharmacist [id number] [place] [address] Pharmacist Pharmacy 11/05/19 Improvement Analyst Relationship Specialty Start Date End Date Rajesh Tadeo MD [address] [place] [address] PCP - General Family Practice 06/22/21 13, Pharmacist [id number] [place] [address] Pharmacist Pharmacy 11/05/19 Improvement Analyst Relationship Specialty Start Date End Date Rajesh Tadeo MD [address] [place] [address] PCP - General Family Practice 06/22/21 13, Pharmacist [id number] [facility] [place] [address] Pharmacist Pharmacy 11/05/19 Improvement Analyst Relationship Specialty Start Date End Date Rajesh Tadeo MD [address] [place] [address] PCP - General Family Practice 06/22/21 13, Pharmacist [id number] [facility] [place] [address] Pharmacist Pharmacy 11/05/19 Improvement Analyst Relationship Specialty Start Date End Date Rajesh Tadeo MD [address] [place] [address] PCP - General Family Practice 06/22/21 13, Pharmacist [phone] [facility] [place] [address] Pharmacist Pharmacy 11/05/19 Improvement Analyst Relationship Specialty Start Date End Date Rajesh Tadeo MD [address] [place] [address] PCP - General Family Medicine 06/22/21 13, Pharmacist [id number] [place] [address] Pharmacist Pharmacy 11/05/19 Improvement Analyst Relationship Specialty Start Date End Date Rajesh Tadeo MD [address] [place] [address] PCP - General Family Medicine 06/22/21 13, Pharmacist [phone] [place] [address] Pharmacist Pharmacy 11/05/19 Improvement Analyst Relationship Specialty Start Date End Date Rajesh Tadeo MD [address] [place] [address] PCP - General Family Medicine 06/22/21 13, Pharmacist [id number] [place] [address] Pharmacist Pharmacy 11/05/19 Improvement Analyst Relationship Specialty Start Date End Date Rajesh Tadeo MD [address] [place] [address] PCP - General Family Medicine 06/22/21 13, Pharmacist [id number] [place] [address] Pharmacist Pharmacy 11/05/19 Improvement Analyst Relationship Specialty Start Date End Date Rajesh Tadeo MD [address] [place] [address] PCP - General Family Medicine 06/22/21 13, Pharmacist [phone] [place] [address] Pharmacist Pharmacy 11/05/19 Improvement Analyst Relationship Specialty Start Date End Date Rajesh Tadeo MD [address] [place] [address] PCP - General Family Medicine 06/22/21 13, Pharmacist [id number] [place] [address] Pharmacist Pharmacy 11/05/19 Improvement Analyst Relationship Specialty Start Date End Date Rajesh Tadeo MD [address] [place] [address] PCP - General Family Medicine 06/22/21 13, Pharmacist [id number] [place] [address] Pharmacist Pharmacy 11/05/19 Improvement Analyst Relationship Specialty Start Date End Date Rajesh Tadeo MD [address] [place] [address] PCP - General Family Medicine 06/22/21 13, Pharmacist [id number] [place] [address] Pharmacist Pharmacy 11/05/19 Improvement Analyst Relationship Specialty Start Date End Date Rajesh Tadeo MD [address] [place] [address] PCP - General Family Medicine 06/22/21, Pharmacist [id number] [place] [address] Pharmacist Pharmacy 11/05/19 Improvement Analyst Relationship Specialty Start Date End Date Rajesh Tadeo MD [address] [place] [address] PCP - General Family Medicine 06/22/21 13, Pharmacist [id number] [place] [address] Pharmacist Pharmacy 11/05/19 Improvement Analyst Relationship Specialty Start Date End Date Rajesh Tadeo MD [address] [place] [address] PCP - General Family Medicine 06/22/21 13, Pharmacist [id number] [place] [address] Pharmacist Pharmacy 11/05/19 Improvement Analyst Relationship Specialty Start Date End Date Rajesh Tadeo MD [address] [place] [address] PCP - General Family Medicine 06/22/21 13, Pharmacist [id number] [place] [address] Pharmacist Pharmacy 11/05/19 Improvement Analyst Relationship Specialty Start Date End Date Rajesh Tadeo MD [address] [place] [address] PCP - General Family Medicine 06/22/21 13, Pharmacist [id number] [place] [address] Pharmacist Pharmacy 11/05/19 Improvement Analyst Relationship Specialty Start Date End Date Rajesh Tadeo MD [address] [place] [address] PCP - General Family Medicine 06/22/21 13, Pharmacist [id number] [place] [address] Pharmacist Pharmacy 11/05/19 Improvement Analyst Relationship Specialty Start Date End Date Rajesh Tadeo MD [address] [place] [address] PCP - General Family Medicine 06/22/21 13, Pharmacist [phone] [place] [address] Pharmacist Pharmacy 11/05/19 Improvement Analyst Relationship Specialty Start Date End Date Rajesh Tadeo MD [address] [place] [address] PCP - General Family Medicine 06/22/21 13, Pharmacist [address] [place] [address] Pharmacist Pharmacy 11/05/19 Improvement Analyst Relationship Specialty Start Date End Date Rajesh Tadeo MD [address] [place] [address] PCP - General Family Medicine 06/22/21 13, Pharmacist [id number] [place], [place] [id number] Pharmacist Pharmacy 11/05/19 FOR RECORDS PERTAINING TO PATIENTS WHO ARE OR HAVE BEEN ENROLLED IN A CHEMICAL DEPENDENCY/SUBSTANCEABUSE PROGRAM, SOME INFORMATION MAY BE OMITTED. This clinical summary was aggregated from multiple sources. Caution should be exercised in using it in the provision of clinical care. This summary normalizes information from multiple sources, and as a consequence, information in this document may materially change the coding, format and clinical context of patient data. In addition, data may be omitted in some cases. CLINICAL DECISIONS SHOULD BE BASED ON THE PRIMARY CLINICAL RECORDS. [facility]. provides no warranty or guarantee of the accuracy or completeness of information in this document.
== END | disposition home or self-care (01) ==
LOC: LABSPEC 15:22
PROVIDERS: PCP Family Medicine; Referring Provider Otolaryngology Otolaryngology/Facial Plastic Surgery; Visit Provider Otolaryngology Otolaryngology/Facial Plastic Surgery
DX: J02.9 Acute pharyngitis, unspecified (principal)
CPT/HCPCS: 87070; 87077; 87186

== ENCOUNTER → 2023-08-16 | Outpatient (CLI) | payer OTHER, SELFPAY ==
[2023-08-17 12:09] LABS: PSA, Free 1.66 ng/mL; PSA, Free % 21.3 % (.)
== END | disposition home or self-care (01) ==
LOC: LAB 11:05
PROVIDERS: PCP Family Medicine; Referring Provider Urology; Visit Provider Urology
DX: R97.20 Elevated prostate specific antigen [PSA] (principal)
CPT/HCPCS: 36415; 84153; 84154

== ENCOUNTER → 2024-08-18 | Outpatient (CLI) | payer OTHER, SELFPAY | END | disposition home or self-care (01) | LOC: LABSPEC 15:08 | PROVIDERS: PCP Family Medicine; Referring Provider Otolaryngology Otolaryngology/Facial Plastic Surgery; Visit Provider Otolaryngology Otolaryngology/Facial Plastic Surgery | DX: J02.9 Acute pharyngitis, unspecified (principal) | CPT/HCPCS: 87070 ==